=== PATIENT | male | born 1960 | race Caucasian/White ===

== ENCOUNTER → 2024-08-17 | Outpatient (CLI) | payer MEDICARE, SELFPAY ==
[2024-08-17 14:30] LABS: Prothrombin Time (Protime)PT. 13.6 SECONDS (11.7-14.9)
[2024-08-17 14:31] LABS: Partial Thromboplast Time 30.2 Seconds (24.1-36.2)
[2024-08-17 14:41] LABS: ALB/GLOB Ratio 1.7 RATIO (0.9-2.4); AST(SGOT) 34 U/L (<=37); Alanine Aminotransfer ALT/SGPT 28 U/L (<=46); Albumin, Serum 4.1 g/dL (3.4-4.8); Alkaline Phosphatase 60 U/L (40-129); Ammonia 29.2 umol/L (16-60); Anion Gap 11 (5-15); BUN 10 mg/dL (4-19); BUN/Creat Ratio 9.6 RATIO (10-20); Calcium,Total 9.2 mg/dL (7.6-11.0); Carbon Dioxide 25.5 mmol/L (21.0-32.0); Chloride 105 mmol/L (98-108); Creatinine, Serum 1.01 mg/dL (0.70-1.20); EST Glomerular Filtration Rate 84 (>60); Globulin 2.4 g/dL (2.2-4.2); Glucose 87 mg/dL (70-99); LDH 155 U/L (87-241); Potassium 4.4 mmol/L (3.3-5.1); Protein, Total 6.4 g/dL (5.9-8.4); Sodium Level 142 mmol/L (133-145); Total Bilirubin 0.56 mg/dL (0.00-1.30)
[2024-08-17 20:46] LABS: Hemoglobin A1c 5.8 % (<=5.6)
[2024-08-19 15:08] LABS: Anti-Centromere B Ab <0.2 AI (0.0-0.9); Anti-Chromatin <0.2 AI (0.0-0.9); Anti-Jo <0.2 AI (0.0-0.9); Anti-Mitochondrial AB 70.4 Units (0.0-20.0); Anti-Scleroderma-70 AB <0.2 AI (0.0-0.9); Anti-dsDNA Ab 1 IU/mL (0-9); RNP Ab <0.2 AI (0.0-0.9); SJOGREN'S Anti-SS-A test < 0.2 AI (0.0-0.9); SJOGREN'S Anti-SS-B test < 0.2 AI (0.0-0.9); Smith Ab <0.2 AI (0.0-0.9)
== END | disposition home or self-care (01) ==
LOC: LAB 12:35
PROVIDERS: PCP Registered Nurse; Referring Provider Internal Medicine Gastroenterology; Visit Provider Internal Medicine Gastroenterology
DX: K74.60 Unspecified cirrhosis of liver (principal)
CPT/HCPCS: 80053; 80074; 82105; 82140; 82164; 82390; 82525; 82784; 82785; 82787; 83010; 83036; 83516; 83615; 84165; 85610; 85730; 86037; 86225; 86235; 86255; 86334

== ENCOUNTER → 2024-11-01 | Outpatient (CLI) | payer MEDICARE, SELFPAY ==
[2024-11-01 15:39] LABS: Absolute Lymphocyte Count 1.18 X10^3/uL (0.83-4.51); Absolute Neutrophil Count 2.5 X10^3/uL (2.0-7.7); Basophil# 0.04 X10^3/uL; Basophil% 0.9 % (0-1); Eosinophil# 0.14 X10^3/uL; Eosinophils% 3.3 % (0-5); Hematocrit 41.4 % (40-54); Hemoglobin 14.4 g/dL (13.0-16.5); Lymphocyte # 1.18 X10^3/ul (0.83-4.51); Lymphocyte % 27.7 % (19-41); Mean Corp Hgb Conc 34.8 g/dL (32-36); Mean Corpuscular Hgb 31.3 pg (27.0-32.0); Mean Platelet Vol. 11.2 fl (6.2-12.0); Monocyte# 0.37 X10^3/uL; Monocyte% 8.7 % (0-10); NRBC Flagged by Analyzer 0 % (0-5); Neutrophil # 2.51 X10^3/uL (2.7-7.7); Neutrophil % 58.9 % (47-70); POSITIVE COUNT YES; Platelet Count 99 K/mm3 (150-450); RBC Distribution Width CV 12.5 % (11.6-14.6); White Blood Count 4.3 K/mm3 (4.4-11.0)
[2024-11-01 15:50] LABS: Prothrombin Time (Protime)PT. 13.2 SECONDS (11.7-14.9)
[2024-11-01 19:36] LABS: Differential Indicated SCAN CRITERIA MET
[2024-11-01 19:49] LABS: Differential Comment SCANNED; Platelet Estimate MOD DEC (ADEQ)
== END | disposition home or self-care (01) ==
LOC: LAB 15:01
PROVIDERS: PCP Registered Nurse; Referring Provider Internal Medicine; Visit Provider Internal Medicine
DX: K74.60 Unspecified cirrhosis of liver (principal); D69.6 Thrombocytopenia, unspecified
CPT/HCPCS: 36415; 85025; 85610

== ENCOUNTER 2024-11-10 07:41 | Outpatient (CLI) | payer MEDICARE, SELFPAY ==
[2024-11-10] VITALS (12 sets, daily range): BP systolic 91–127; BP diastolic 55–87; PULSE 59–73; RESP 10–23; TEMP 36.7; O2SAT 94–99; BMI 30.6
[2024-11-10] MEDS: fentaNYL 100 MCG/2 ML Ampul IV (08:38)
[2024-11-10] MEDS: 0.9% Saline Lock 10 ML Syringe IV (08:39)
[2024-11-10] MEDS: Lidocaine 2% (20 ml mdv) 20 ML Vial INFILT (08:50)
[2024-11-10 09:10] LABS: Bedside Glucose 104 mg/dL (74-106)
[2024-11-10 09:45] LABS: Pathology Sent to OSU SEE PATHOLOGY REPORT
== END 2024-11-10 23:59 | disposition home or self-care (01) ==
PROVIDERS: PCP Registered Nurse; Referring Provider Internal Medicine Gastroenterology; Visit Provider Internal Medicine Gastroenterology
DX: K74.60 Unspecified cirrhosis of liver (principal); K76.0 Fatty (change of) liver, not elsewhere classified
CPT/HCPCS: 47000; 77012; 82962; 99156; A4216

== ENCOUNTER 2025-01-26 05:53 | Day surgery (SDC) | payer MEDICARE, SELFPAY ==
--- NOTE | 2025-01-25 08:59 | PAT.ANE_ITS ---
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 When Was Last Pacemaker Check QUESTION #4 FULL TEXT: You/Your Family Experience fever (hyperthermia) with Anesthesia Last Oral Intake Last Oral intake: Last Oral Intake NPO since Meds taken in AM with sips of water? Meds patient instructed to take am of surgery PONV PONV - patient care technician instructor: PONV - patient care technician instructor Female No 01/25/25 08:23 HX of Motion Sickness No 01/25/25 08:23 HX of N/V After Surgery No 01/25/25 08:23 Non-Smoker No 01/25/25 08:23 Duration of Surgery greater No 01/25/25 08:23 than 60 minutes Number of Risk Factors PONV Score Height & Weight Height & Weight: Anesthesia: Height & Weight Height 6 ft 1 in 01/18/25 11:01 Respiratory Assessment Respiratory Assessment - patient care technician instructor: Respiratory Tract Infection Hx - patient care technician instructor Hx Respiratory Tract Infection No 01/25/25 08:23 STOP Sleep Apnea STOP Sleep Apnea - patient care technician instructor: STOP Sleep Apnea - patient care technician instructor Hx Hypertension No 01/25/25 08:23 Hx Sleep Apnea Yes: HAD SURGERY YRS AGO 01/25/25 08:23 CPAP No 01/25/25 08:23 BIPAP No 01/25/25 08:23 Do you snore loudly (louder than talking or can be heard Do you often feel tired/ fatigued/ sleepy during daytime? Has anyone observed you stop breathing during sleep? STOP Results Positive 01/25/25 08:23 QUESTION #5 FULL TEXT : Do you snore loudly (louder than talking or can be heard through closed doors)? Tobacco Use History Tobacco Use History - patient care technician instructor: Tobacco Use History - patient care technician instructor Tobacco Use Smoking Status Current every day smoker 01/25/25 08:23 Hx Tobacco Use Yes 01/25/25 08:23 Years Smoking Packs Smoked per Day Smoking Cessation Date was within the last 15 years Hx Smoking Cessation Date Hx Smoking Cessation Counseling Hematologic Medial History Hematologic Hx - patient care technician instructor: Hematologic Medical Hx - spike machine feeder Hx of Blood Transfusion No 01/25/25 08:23 Hx of Transfusion in last 3 No 01/25/25 08:23 Months Date of Last Transfusion (if within last 3 months) Ever experience any problems No 01/25/25 08:23 with transfusion(s)? Specify any problems Hx of Preganancy in last 3 N/A 01/25/25 08:23 Months Nurse Filling Out Transfusion [id number] 01/25/25 08:23 & Questions: Date: 01/25/25 01/25/25 08:23 Time: 08:01/25/25 08:23 Patient unable to answer at this time (ie. confused, unrespo /Reproduction History /Reproductive History - patient care technician instructor: /Reproductive Hx- patient care technician instructor Hx Now Gestational Age (in weeks): EDC: Hx Hx Para Hx Section [facility] Medical History (Updated 01/25/25 @ 08:32 by Neville Rodriguez) Deviated septum Colonoscopy planned Wears dentures Diabetes Fatty liver Ischemic optic neuropathy Gastric reflux Smoker History of stress test Home Medications ?Medication ?Instructions ?Recorded ?Last Taken ?Type gabapentin 100 mg capsule 100 mg PO BID 08/04/24 Unkno wn History glimepiride 1 mg tablet 1 mg PO QDAY 08/04/24 Unknow n History metformin 500 mg tablet 500 mg PO BID 08/04/24 Unkno wn History pantoprazole 20 mg tablet,delayed 20 mg PO QDAY Unknown History release pramipexole 0.5 mg tablet 0.5 mg PO QDAY 08/04/24 Unkn own History citalopram 10 mg/5 mL oral solution 5 mg PO QDAY 08/17 Unknown History ursodiol 500 mg tablet 500 mg PO BID 3 months #180 tabs 11/01/24 Unknown Rx resmetirom 100 mg tablet 100 mg PO QDAY #30 tabs 12/23 06/18 Unknown Rx (Rezdiffra) Allergy/AdvReac Type Severity Reaction Status Date / Time amoxicillin (From Augmentin) Allergy Hives Verified 01/25/25 08:21 clavulanic acid (From Allergy Hives Verified 01/25/25 08:21 Augmentin) midazolam (From Versed) Allergy Other Verified 01/25/25 08:21 Surgical History (Updated 01/25/25 @ 08:32 by Neville Rodriguez) H/O thumb surgery History of tonsillectomy H/O knee surgery H/O colectomy H/O neck surgery Previous back surgery Social History Smoking Status: Current every day smoker tobacco type: e-cigarettes alcohol intake: never Recommendation Anesthesia Recommendation Anesthesia recommendation: OPTIMIZED for anesthesia Follow up Details CBC Recommendation: Yes CBC Rec Details: Recheck CBC on DOS
[2025-01-26] VITALS (8 sets, daily range): BP systolic 100–110; BP diastolic 72–84; PULSE 69–83; RESP 14–16; TEMP 36.2–36.6; O2SAT 95–96; BMI 29.9
--- OUTSIDE RECORDS SUMMARY | 2025-01-26 06:08 | XMS RPT_ITS | CCD ---
Author Organization [facility] Care Team Providers Care Assistant Sales Center Manager Name Role Phone WASHINGTON REARDON MD Primary Care Physician Washington Reardon MD Primary Care Provider LAVONNE KEENE, MISTY Ayala Primary Care Physi jamari MISTY BANERJEE CNP Primary Care Unavailab kranthi LEYVA MD~[phone], GORDON COLLAZO Attending Unavailable GORDON JARVIS~[phone], GORDON COLLAZO Admitting Unavailable SVEN JARVIS, DR CLIFF VARGAS Attending Priscila BANERJEE APRN-JOSE ANGEL, MISTY Ayala Primary Care Un available MICHAEL YOON PA-C Attending Unavailable LAVONNE KEENE, MISTY Ayala Primary Care Un available RODY JARVIS, DR CLARA Booker Attending Priscila KEENE, MISTY A Primary Care Un available RODY JARVIS, DR CLARA Booker Attending Priscila KEENE, MISTY A Primary Care Un available JALEEL MCKENZIE MD Consulting Unavailable ETHEL GARCIA DOITAR Consulting Unavailcarly LLOYD MD, DR CLARA Booker Attending Priscila KEENE, MISTY A Primary Care Un available CELIO PINZON MD Consulting Unavailable RADHA KNIGHT, LUISA Consulting Unavailcarly e KARRIE MASSEY, MICHAEL Attending Unavailable LAVONNE DE LA CRUZ-JOSE ANGEL, MISTY A Primary Care Un available MICHAEL YOON PA-C Attending Unavailable LAVONNE DE LA CRUZ-JOSE ANGEL, MISTY A Primary Care Un available LAVONNE DE LA CRUZ-JOSE ANGEL, MSITY Ayala Attending Un available LAVONNE PENCIL INSPECTOR-PREPARED FOODS TEAM LEADER, MISTY A Primary Care Un available SVEN JARVIS, DR CLIFF VARGAS Attending Unabriana lable LAVONNE PENCIL INSPECTOR-PREPARED FOODS TEAM LEADER, MISTY A Primary Care Un available LAVONNE PENCIL INSPECTOR-PREPARED FOODS TEAM LEADER, MISTY A Attending Un available LAVONNE PENCIL INSPECTOR-PREPARED FOODS TEAM LEADER, MISTY A Primary Care Un available LAVONNE PENCIL INSPECTOR-PREPARED FOODS TEAM LEADER, MISTY A Primary Care Un available ELVIN REYNOSO MD Attending Unavailable KARRIE FRANCIS-C, MICHAEL Attending Unavailable LAVONNE PENCIL INSPECTOR-PREPARED FOODS TEAM LEADER, MISTY A Primary Care Un available Lavonne ASSOCIATE PASTOR-C, Misty Primary Care Provider [phone] Lavonne ASSOCIATE PASTOR-C, Misty Referring Provider [phone] Elisa KNIGHT, Dr. Caldera Attending Provider Elisa KNIGHT, Dr. Caldera Referring Provider Earl JARVIS, Dr. Rincon Attending Provider Earl JARVIS, Dr. Rincon Referring Provider Unavailable Primary Care Provider Unavailabl e SERGEY ELLIOTT Referring Unavailable Lavonne ASSOCIATE PASTOR-C, Misty Referring Provider [phone] Elisa KNIGHT, Dr. Caldera Attending Provider Lavonne ASSOCIATE PASTOR-C, Misty Primary Care Provider Dr. Werner Pérez DO Referring Provider Lavonne, Misty Primary Care Provider Unavail able Lavonne, Misty Referring Provider Unavailabl e Werner Pérez Attending Unavailable Lavonne, Misty Referring Unavailable Lavonne, Misty Primary Care Unavailable Lavonne, Misty Primary Care Unavailable Sergey Elliott Attending Unavailable Sergey Elliott Referring Unavailable FriendWerner Referring Unavailable Lavonne, Misty Primary Care Unavailable Werner Pérez Attending Unavailable Sergey Elliott Attending Unavailable Lavonne, Misty Primary Care Unavailable Lavonne, Misty Referring Unavailable Sergey Elliott Attending Unavailable FriendWerner Attending Unavailable Lavonne, Misty Primary Care Unavailable Lavonne, Misty Referring Unavailable Werner Pérez Attending Unavailable FriendWerner Referring Unavailable Misty Banerjee Primary Care Unavailable Misty Banerjee Primary Care Unavailable Friend, Werner Attending Unavailable Misty Banerjee Attending Unavailable Misty Banerjee Primary Care Unavailable Friend, Werner Attending Unavailable Misty Banerjee Referring Unavailable Allergies Allergy Classification Reported Allergen(s) Allergy Type Date of Onset Reaction(s) Facility (8 sources) Amoxicillin / Clavulanate; Translations: [amoxicillin-cl avulanate] Drug Allergy Weal (disorder) [facility] (16 sources) Midazolam; Translations: [midazolam] Drug Allergy 2 Clouded consciousness (finding) [facility] Comment on above: makes patient violen t confusion (1 source) Amoxicillin-Pot Clavulanate Propensity to adverse reactions to drug 1 [facility] (7 sources) Amoxicillin Drug Allergy 5 [facility] (7 sources) Clavulanate Drug Allergy 5 [facility] (1 source) Amoxicillin Drug Allergy 5 [facility] (1 source) Clavulanate Drug Allergy 5 [facility] (1 source) Midazolam Drug Allergy 5 [facility] Medications Current Medications Medication Drug Class(es) Dates Sig (Normalized) Sig (Original) acetaminophen 500 mg oral capsule (16 sources) Start: 08-04-2024 take 1 capsule by mouth every six hours as needed Acetaminophen 500 mg capsule Active 500 mg PO EVERY 6 HOURS as needed August 04, 2024 12:00am Start: 05-09-2022 Tylenol Extra Strength 500 mg oral tablet Dose : 1,000 mg = 2 tab(s), Oral, q6hr, PRN as needed for pain, # 120 tab(s), 0 Refill(s) Start Date: 05/09/22 Status: Ordered Start: 11-28-2021 End: 11-28-2021 acetaminophen (TYLENOL) tabl et 1,000 mg Start: 10-15-2017 Tylenol 325 mg oral tablet Dose : 650 mg = 2 tab(s), Oral, q4h, PRN Pain, scale 1-8, 0 Refill(s) Start Date: 10/15/17 Status: Ordered AZO Urinary Pain Relief Max Strength (2 sources) Start: 12-12-2022 AZO Urinary Pa in Relief Max Strength Oral, TIDPC, 0 Refill(s) Start Date: 12/12/22 Status: Ordered calcium chloride 0.0014 meq/ml / potassium chloride 0.004 meq/ml / sodium chloride 0.103 meq/ml / sodium lactate 0.028 meq/ml injectable solution (2 sources) Start: 11-28-2021 lactated ringe rs infusion citalopram 2 mg/ml oral solution (16 sources) Serotonin Reuptake Inhibitor Start: 08-17-2024 take 5 mg by mouth once daily Citalopram 10 mg/5 mL solution Active 5 mg PO daily August 17, 2024 12:00am Start: 11-04-2023 End: 05-02-2024 take 1 dose by mouth once daily citalopram 10 mg/5 mL oral solution Dose : 5 mg = 2.5 mL, Oral, qDay, please provide syringe., # 225 mL, 1 Refill(s), [facility]: [id number], 185, cm, 11/04/23 15:01:00 EDT, Height, kg, 11/04/23 15:01:00 EDT, Dosing Weight Start Date: 11/04/23 Stop Date: 05/02/24 Status: Ordered Start: 08-25-2022 citalopram 10 mg oral tablet Dose : 10 mg = 1 tab(s), Oral, qAM, # 30 tab(s), 0 Refill(s) Start Date: 08/25/22 Status: Ordered Start: 10-07-2021 citalopram (CE MAIKEL) 10 MG tablet Start: 08-11-2017 citalopram 20 mg oral tablet Dose : 20 mg = 1 tab(s), Oral, qAM, # 30 tab(s), 0 Refill(s) Start Date: 08/11/17 Status: Ordered 1 ml diphenhydrAMINE hydrochloride 50 mg/ml cartridge (1 source) Histamine-1 Receptor Antagonist Start: 11-28-2021 End: 11-28-2021 diphenhydrAMINE (BENADRYL) injection 12.5 mg 2 ml fentaNYL 0.05 mg/ml injection (2 sources) Opioid Agonist Start: 11-28-2021 fentaNYL (SUBL IMAZE) injection 50 mcg Start: 11-28-2021 fentaNYL (SUBL IMAZE) injection 25 mcg gabapentin 100 mg oral capsule (12 sources) Anti-epileptic Agent Start: 08-04-2024 take 1 capsule by mouth twice daily Gabapentin 100 mg capsule Active 100 mg PO TWICE A DAY August 04, 2024 12:00am Start: 02-17-2024 End: 05-17-2024 gabapentin 100 mg oral capsu le Dose : 100 mg = 1 cap(s), Oral, BID, # 180 cap(s), 0 Refill(s), [facility]: [id number], Neuropathy, 185, cm, 11/04/23 15:01:00 EDT, Height, 103.4, kg, 11/04/23 15:01:00 EDT, Dosing Weight Start Date: 02/17/24 Stop Date: 05/17/24 Status: Ordered Start: 11-28-2022 End: 02-26-2023 take 1 capsule by mouth once daily at bedtime gabapentin 100 mg oral capsule Dose : 100 mg = 1 cap(s), Oral, BID, Take 100mg in the AM and 200mg (2 tabets) qHS, # 180 cap(s), 0 Refill(s), [facility]: [id number], Diabetes type 2, controlled, 185.4, cm, 11/28/22 11:00:00 EDT, Height, 104.9, kg, 11/28/22 11:00:00 EDT, Dosing Weight Start Date: 11/28/22 Stop Date: 02/26/23 Status: Ordered Start: 11-28-2021 End: 11-28-2021 gabapentin (NEURONTIN) capsu le 100 mg glimepiride 1 mg oral tablet (11 sources) Sulfonylurea Start: 08-04-2024 take 1 tablet by mouth once daily Glimepiride 1 mg tablet Active 1 mg PO daily August 04, 2024 12:00am Start: 03-30-2023 End: 09-26-2023 glimepiride 1 mg oral tablet Dose : 1 mg = 1 tab(s), Oral, BID, # 180 tab(s), 1 Refill(s), [facility]: [id number], 185.4, cm, 03/30/23 12:53:00 EST, Height, kg, 03/30/23 12:53:00 EST, Dosing Weight Start Date: 03/30/23 Stop Date: 09/26/23 Status: Ordered Start: 11-28-2022 End: 02-26-2023 glimepiride 1 mg oral tablet Dose : 1 mg = 1 tab(s), Oral, BID, # 180 tab(s), 0 Refill(s), [facility]: [id number], 185.4, cm, 11/28/22 11:00:00 EDT, Height Start Date: 11/28/22 Stop Date: 02/26/23 Status: Ordered insulin lispro 100 unt/ml injectable solution (1 source) Insulin Analog Start: 11-28-2021 insulin lispro (HUMALOG) injection vial 0-12 Units labetalol (NORMODYNE;TRANDATE) injection 5 mg (1 source) Start: 11-28-2021 labetalol (NORMODYNE;TRANDA TE) injection 5 mg 10 ml lidocaine hydrochloride 10 mg/ml injection (1 source) Antiarrhythmic, Amide Local Anesthetic Start: 11-28-2021 End: 11-28-2021 lidocaine PF 1 % injection 1 mL meloxicam 15 mg oral tablet (1 source) Nonsteroidal Anti-inflammatory Drug Start: 08-18-2020 meloxicam 15 mg oral tablet Dose : 15 mg = 1 tab(s), Oral, qDay, Take with food/milk, # 30 tab(s), 0 Refill(s), Neurapraxia Start Date: 08/18/20 Status: Ordered 1 ml meperidine hydrochloride 25 mg/ml cartridge (1 source) Opioid Agonist Start: 11-28-2021 meperidine (DEMEROL) injection 12.5 mg metFORMIN hydrochloride 500 mg oral tablet (16 sources) Biguanide Start: 08-04-2024 take 1 tablet by mouth twice daily Metformin 500 mg tablet Active 500 mg PO TWICE A DAY August 04, 2024 12:00am Start: 07-22-2023 End: 01-18-2024 metFORMIN 500 mg oral tablet (IR) Dose : 500 mg = 1 tab(s), Oral, BID, # 180 tab(s), 1 Refill(s), [facility]: [id number], 185.4, cm, 03/30/23 12:53:00 EST, Height, kg, 03/30/23 12:53:00 EST, Dosing Weight Start Date: 07/22/23 Stop Date: 01/18/24 Status: Ordered Start: 05-09-2022 metFORMIN 500 mg oral tablet (IR) Dose : 500 mg = 1 tab(s), Oral, BID, # 180 tab(s), 0 Refill(s) Start Date: 05/09/22 Status: Ordered Start: 09-06-2021 take 2 tablets by mo uth once daily metFORMIN (GLUCOPHAGE-XR) 500 MG extended release tablet TAKE TWO TABLETS BY MOUTH ONCE EVERY DAY 0 09/06/2021 Active Start: 08-16-2021 metFORMIN 1000 mg oral tablet (IR) Start Date: 08/16/21 Status: Ordered naproxen sodium 220 mg oral tablet (3 sources) Nonsteroidal Anti-inflammatory Drug Start: 05-09-2022 Aleve 220 mg oral tablet Dose : 440 mg = 2 tab(s), Oral, qDay, PRN as needed for pain, # 40 cap(s), 0 Refill(s) Start Date: 05/09/22 Status: Ordered omeprazole 20 mg delayed release oral capsule (1 source) Proton Pump Inhibitor Start: 08-11-2017 omeprazole 20 mg oral delayed release capsule (NF) Dose : 20 mg = 1 cap(s), Oral, qAM, # 30 cap(s), 0 Refill(s) Start Date: 08/11/17 Status: Ordered 2 ml ondansetron 2 mg/ml injection (1 source) Serotonin-3 Receptor Antagonist Start: 11-28-2021 End: 11-28-2021 ondansetron (ZOFRAN) injection 4 mg pantoprazole 20 mg delayed release oral tablet (15 sources) Proton Pump Inhibitor Start: 08-04-2024 take 1 tablet by mouth once daily Pantoprazole 20 mg tablet,delayed release (DR/EC) Active 20 mg PO daily August 04, 2024 12:00am Start: 11-04-2023 End: 05-02-2024 pantoprazole 20 mg oral ente renato coated tablet Dose : 20 mg = 1 tab(s), Oral, qHS, # 90 tab(s), 1 Refill(s), [facility]: [id number], 185, cm, 11/04/23 15:01:00 EDT, Height, kg, 11/04/23 15:01:00 EDT, Dosing Weight Start Date: 11/04/23 Stop Date: 05/02/24 Status: Ordered Start: 05-09-2022 pantoprazole 2 0 mg oral enteric coated tablet Dose : 20 mg = 1 tab(s), Oral, qHS, # 90 tab(s), 0 Refill(s) Start Date: 05/09/22 Status: Ordered Start: 09-12-2021 take 1 tablet by samantha th once daily pantoprazole (PROTONIX) 20 MG tablet TAKE ONE TABLET BY MOUTH EVERY DAY 0 09/12/2021 Active phenazopyridine hydrochloride 200 mg delayed release oral tablet (1 source) Start: 11-28-2021 End: 12-03-2021 take 1 tablet by mouth three times daily as needed for pain phenazopyridine (PYRIDIUM) 200 MG tablet Take 1 tablet by mouth 3 times daily as needed for Pain (burning with urination) 15 tablet 0 11/28/2021 12/03/2021 Active pramipexole dihydrochloride 0.5 mg oral tablet (16 sources) Nonergot Dopamine Agonist Start: 08-04-2024 take 1 tablet by mouth once daily Pramipexole 0.5 mg tablet Active 0.5 mg PO daily August 04, 2024 12:00am Start: 11-04-2023 End: 05-02-2024 pramipexole 0.5 mg oral tabl et Dose : 0.5 mg = 1 tab(s), Oral, qPM, Take 1 tab in the PM, # 90 tab(s), 1 Refill(s), [facility]: [id number], 185, cm, 11/04/23 15:01:00 EDT, Height, kg, 11/04/23 15:01:00 EDT, Dosing Weight Start Date: 11/04/23 Stop Date: 05/02/24 Status: Ordered Start: 08-25-2022 pramipexole 0. 5 mg oral tablet Dose : 0.5 mg = 1 tab(s), Oral, qPM, Take 1 tab in the PM, # 270 tab(s), 0 Refill(s) Start Date: 08/25/22 Status: Ordered Start: 05-09-2022 pramipexole 0. 125 mg oral tablet Dose : 0.125 mg = 1 tab(s), Oral, qHS, # 270 tab(s), 0 Refill(s) Start Date: 05/09/22 Status: Ordered Start: 08-11-2017 pramipexole (M IRAPEX) 0.125 MG tablet 0.125 mg 0 08/11/2017 Active Resmetirom (Rezdiffra) 100 mg tablet (1 source) Start: 01-02-2025 take 1 tablet by mouth once daily Resmetirom (Rezdiffra) 100 mg tablet Active 100 mg PO daily 23 04January 02, 2025 12:00am simvastatin 20 mg oral tablet (5 sources) HMG-CoA Reductase Inhibitor Start: 08-11-2017 simvastatin 20 mg oral tablet (NF) Dose : 20 mg = 1 tab(s), Oral, qHS, # 30 tab(s), 0 Refill(s) Start Date: 08/11/17 Status: Ordered 5 ml sodium chloride 9 mg/ml injection (9 sources) Start: 11-28-2021 sodium chlorid e flush 0.9 % injection 5-40 mL Start: 11-28-2021 sodium chlorid e flush 0.9 % injection 5-40 mL Start: 11-28-2021 sodium chlorid e flush 0.9 % injection 5-40 mL Start: 11-28-2021 0.9 % sodium c hloride bolus Start: 11-28-2021 0.9 % sodium c hloride infusion Start: 11-28-2021 sodium chlorid e flush 0.9 % injection 5-40 mL ursodiol 500 mg oral tablet (10 sources) Bile Acid Start: 11-01-2024 take 1 tablet by mouth twice daily Ursodiol 500 mg tablet Active 500 mg PO TWICE A DAY 180 90 November 01, 2024 2:45pm Start: 10-19-2024 End: 11-01-2024 take 1 tablet by mouth twice daily Ursodiol 250 mg tablet Discontinued 250 mg PO TWICE A DAY 180 90 October 19, 2024 12:00am November 01, 2024 2:55pm Completed/Discontinued Medications Medication Drug Class(es) Dates Sig (Normalized) Sig (Original) bromelein (3 sources) Start: 05-09-2022 bromelein bromerain, 1 tab(s), Oral, qDay, 0 Refill(s), 117 Start Date: 05/09/22 Status: Ordered famotidine 20 mg oral tablet (1 source) Histamine-2 Receptor Antagonist Start: 11-28-2021 End: 11-28-2021 famotidine (PEPCID) tablet 20 mg predniSONE 50 mg oral tablet (1 source) Start: 08-19-2020 End: 08-24-2020 predniSONE 50 mg oral tablet Dose : 50 mg = 1 tab(s), Oral, qDayM, # 5 tab(s), 0 Refill(s), Neurapraxia Start Date: 08/19/20 Stop Date: 08/24/20 Status: Ordered Tirzepatide 2.5 mg/0.5 mL pen injector (7 sources) Start: 08-04-2024 End: 08-17-2024 Tirzepatide 2.5 mg/0.5 mL pen injector Discontinued 2.5 mg SC EVERY WEEK August 04, 2024 12:00am August 17, 2024 11:22am for 4 weeks Problems Problem Classification Problem Date Documented Da te Episodic/Chronic Abdominal pain (2 sources) Pain in male pelvis; Translations: [Pelvic and perineal pain] Onset: 2 Episodic Anxiety disorders (15 sources) Anxiety; Translations: [Anxiety disorder, unspecified] 08-11-2017 Chronic Chronic obstructive pulmonary disease and bronchiectasis (8 sources) Smokers' cough 08-11-2017 Chronic Coagulation and hemorrhagic disorders (18 sources) Thrombocytopenic disorder; Translations: [Thrombocytopenia, unspecified] Onset: 4 11-28-2022 Chronic Conditions associated with dizziness or vertigo (8 sources) Vertigo 08-11-2017 Episodic Comment on above: PT TO HAVE CAROTID S TUDIES & ECHO 08/21/17 Diabetes mellitus with complications (6 sources) Neuropathy due to diabetes mellitus; Translations: [Type 2 diabetes mellitus with diabetic neuropathy, unspecified] Onset: 4 09-30-2022 Chronic Diabetes mellitus without complication (11 sources) Type 2 diabetes mellitus; Translations: [Type 2 diabetes mellitus without complications] 08-25-2022 Chronic Disorders of lipid metabolism (11 sources) Hyperlipidemia; Translations: [Hyperlipidemia, unspecified] 08-25-2022 Chronic Esophageal disorders (20 sources) Gastroesophageal reflux disease; Translations: [Gastro-esophageal reflux disease without esophagitis] 10-09-2017 Chronic Essential hypertension (13 sources) Hypertensive disorder; Translations: [Essential (primary) hypertension] Onset: 4 10-11-2022 Chronic Genitourinary symptoms and ill-defined conditions (17 sources) Urgent desire to urinate; Translations: [Urgency of urination] Onset: Episodic Headache; including migraine (8 sources) Headache 08-11-2017 Episodic Comment on above: SINUS Hepatitis (19 sources) Steatohepatitis; Translations: [Nonalcoholic steatohepatitis] Onset: 5 03-04-2024 Chronic Mood disorders (11 sources) Depressive disorder; Translations: [Depression] 08-25-2022 Chronic Osteoarthritis (15 sources) Arthritis; Translations: [Unspecified osteoarthritis, unspecified site] 08-11-2017 Chronic Other and unspecified benign neoplasm (15 sources) Polyp of colon; Translations: [Polyp of colon] 08-11-2017 Episodic Other connective tissue disease (4 sources) Foot pain 09-30-2022 Episodic Other connective tissue disease (4 sources) Pain of toes of bilateral feet 11-13-2022 Episodic Other diseases of bladder and urethra (4 sources) Spasm of bladder 10-13-2022 Chronic Other gastrointestinal disorders (14 sources) Splenomegaly; Translations: [Splenomegaly, not elsewhere classified] 08-25-2022 Episodic Other gastrointestinal disorders (1 source) Splenomegaly, not elsewhere classified; Translations: [Splenomegaly, not elsewhere classified] Onset: Episodic Other hereditary and degenerative nervous system conditions (10 sources) Restless legs 08-11-2017 Chronic Other liver diseases (16 sources) Cirrhosis of liver; Translations: [Unspecified cirrhosis of liver] 08-17-2024 Chronic Other liver diseases (1 source) Portal hypertension; Translations: [Portal hypertension (HCC)] Onset: 5 Chronic Other liver diseases (1 source) Unspecified cirrhosis of liver; Translations: [Unspecified cirrhosis of liver] Onset: 5 Chronic Other liver diseases (4 sources) Large liver 08-25-2022 Episodic Other nervous system disorders (8 sources) Numbness and tingling sensation of skin 08-11-2017 Episodic Comment on above: R LEG / AFTER PROLON GED STANDING Other nutritional; endocrine; and metabolic disorders (4 sources) Body mass index 30+ - obesity 08-25-2022 Chronic Other screening for suspected conditions (not mental disorders or infectious disease) (10 sources) Platelet count below reference range; Translations: [Encounter for screening for malignant neoplasm of prostate] Onset: 3 05-09-2022 Episodic Comment on above: PLT 84,000 2 Other skin disorders (4 sources) Bilateral ingrowing nail of toe of feet 11-13-2022 Episodic Other upper respiratory disease (4 sources) Seasonal allergy 08-25-2022 Chronic Residual codes; unclassified (8 sources) Sleep apnea 08-11-2017 Chronic Residual codes; unclassified (4 sources) Family history of colorectal cancer 12-12-2022 Episodic Residual codes; unclassified (4 sources) Preoperative state 12-12-2022 Episodic Residual codes; unclassified (1 source) Other specified postprocedural states; Translations: [OTH SPECIFIED POSTPROCEDURAL STATES] Onset: 4 Episodic Spondylosis; intervertebral disc disorders; other back problems (9 sources) Prolapsed lumbar intervertebral disc; Translations: [Other spondylosis with radiculopathy, cervical region] Onset: 4 08-11-2017 Chronic Spondylosis; intervertebral disc disorders; other back problems (3 sources) Radiculopathy, cervical region; Translations: [Cervicalgia] Onset: 4 Episodic Substance-related disorders (1 source) Smoker 08-11-2017 Chronic Unclassified (8 sources) Finding related to cerebral function Onset: 1 08-11-2017 Comment on above: STATES EYE ST ROKE FROM [facility] / WAS ON DIOVAN FOR 2-3 YEARS /IT WAS D/C'D D/T HYPOTENSION Unclassified (8 sources) Eye glasses, device (physical object) 10-09-2017 Comment on above: reading Unclassified (4 sources) Vaping 08-25-2022 Results Test Name Value Interpretation Reference Range Facility Gastroenterology Visit Repor [facility] 01-18-2025 Gastroenterology Visit Report [facility]enter[facility] [address] [place] [address] OFFICE VISIT Date of Service: 01/18/25 MR#: [id number] Acct: [id number] Name: NATTY ZAIDI Rep #: [id number] : 1960 Provider: Werner Pérez DO Age/Sex: 64/M Location: [facility] Status: Signed Intake Vital Signs 12/30/24 08:59 01/18/25 11:01 Height 6 ft 1 in 6 ft 1 in Weight: 228 lb BMI 30.0 Intake Visit Reasons: 3 M FU Allergies amoxicillin (From Augmentin) Allergy (Verified 12/30/24 08:59) Hives clavulanic acid (From Augmentin) Allergy (Verified 12/30/24 08:59) Hives midazolam (From Versed) Allergy (Verified 12/30/24 08:59) Other Medications ???Medication ???Instructions ???Recorded ???Confirmed ???Type acetaminophen 500 mg capsule 500 mg PO Q6H PRN 08/04/24 5 History gabapentin 100 mg capsule 100 mg PO BID 08/04/24 01/18/25 Hi story glimepiride 1 mg tablet 1 mg PO QDAY 08/04/24 01/18/25 His tory metformin 500 mg tablet 500 mg PO BID 08/04/24 01/18/25 Hi story pantoprazole 20 mg tablet,delayed 20 mg PO QDAY 08/04/24 01/18/25 H istory release pramipexole 0.5 mg tablet 0.5 mg PO QDAY 08/04/24 01/18/25 H istory citalopram 10 mg/5 mL oral solution 5 mg PO QDAY 08/17/24 01/18/25 History ursodiol 500 mg tablet 500 mg PO BID 3 months #180 tabs 0 11/01/24 01/18/25 Rx resmetirom 100 mg tablet 100 mg PO QDAY #30 tabs 01/02/25 0 01/18/25 Rx (Leta) PFSH Social History Smoking Status: Current every day smoker alcohol intake: never HPI HPI Details: NATTY ZAIDI, is a 64 M who presents to the office today for follow up. *BGI established 3 pt reports that is apr 2022 he saw his pcp who did a physical exam and told pt he felt his liver was enflamed. Shortly after he was diagnosed with DMII. Pt reports he has had scopes and imaging that show enlarged liver and spleen. He reports that he was previously seeing the ASSOCIATE PASTOR that works with Dr Lloyd and was told he needs to be on a list for a liver transplant. Pt is looking for some clarification and more information on his diagnoses. Pt reports that pantoprazole is helpful for his heartburn. Pt reports that he is seeing cooperative manager, Dr Reynoso, for his low platelet count. OV 5..25 pt reports that he is feeling well overall and denies GI symptoms of concern at this time. Pt reports occasional itchy skin and notes some dizziness related to his medications. Pt denies trouble sleeping, swelling, confusion / brain fog, and diarrhea or constipation. Pt is here to review lab work. Liver Bx 6.19.25- Mild macrovesicular steatosis 10%, Trichome stain highlights bridging fibrosis stage 3, Iron stain negative Liver Doppler 7.8.25-Patent hepatic vasculature with appropriately directed flow, liver steatosis OV 8.8.25- Pt well since last visit. Here to review test results. Denies any GI concerns as well as itching, dizziness, confusion or swelling. Sometimes he feels like burping or heartburn symptoms. Liver biopsy and liver Doppler reviewed OV 8.27.25 pt reports that he is feeling well overall, denies GI symptoms of concern at this time. Reports increased flatulence since starting ursodiol. ROS Const Constitutional: No fatigue, fever(s) or weight change ENT ENT: No difficulty swallowing Gastro GI: No abdominal pain, belching, bloating, change in bowel habits, change in stool character, coffee ground emesis, constipation, cramping, diarrhea, heartburn, difficulty swallowing, feeling full ear ly, excessive flatus, incontinent of stools, Vomiting blood/hematemesis, Blood in stool, loose stools, Black,tarry stools, nausea/dyspepsia, pain with swallowing, vomiting or other Musc Musculoskeletal: Positive for Arthritis and restless legs; No joint pain Skin Skin: No yellowing of the eye or itchy eyes Neuro Neurology: Positive for restless legs Psych Psychiatric: No anxiety and No depression Endo Endocrine: No fatigue or weight change Aller/Imm Allergy/Immunologic: No itchy eyes Bro/Lymp Hematologic/Lymphatic: No easy bleeding or easy bruising Exam Const General: cooperative, no acute distress and well developed Nutritional Appearance: average body habitus Orientation: alert, awake and oriented x3 Other: BMI 30.3 kg/m???, weight 230 pound, lost 4 pounds since October 2024 [facility] Head: normocephalic and atraumatic Nose: external nose normal Face and sinus: normal facial exam Mouth: moist mucous membranes Eyes Pupils: PERRL EOM: EOM intact bilaterally Neck Neck: normal visual inspection, no meningeal signs and trachea midline Carotids: no bruits Chest Chest palpation inspection: normal inspection of the chest Resp Effort Inspection: normal respiratory effort and symmetric chest (more content not included)... Normal [facility] Gastroenterology Visit Repor ton 12-30-2024 Gastroenterology Visit Report [facility] Gastroenterology [address] [place] [address] OFFICE VISIT Date of Service: 12/30/24 MR#: [id number] Acct: [id number] Name: NATTY ZAIDI Rep #: [id number] : 1960 Provider: Dr. Sergey sibley MD Age/Sex: 64/M Location: [facility] Status: Signed Intake Vital Signs 11/01/24 14:02 11/10/24 08:02 12/30/24 08:59 Height 6 ft 1 in 6 ft 1 in 6 ft 1 in Weight: 230 lb BMI 30.3 BP 118/82 H Blood Pressure Location Lt brachial Position Sitting Pulse 74 Pulse Oximetry (%) 94 Oxygen Delivery Method room air Intake Visit Reasons: 2 M FU Allergies amoxicillin (From Augmentin) Allergy (Verified 12/30/24 08:59) Hives clavulanic acid (From Augmentin) Allergy (Verified 12/30/24 08:59) Hives midazolam (From Versed) Allergy (Verified 12/30/24 08:59) Other Medications ???Medication ???Instructions ???Recorded ???Confirmed ???Type acetaminophen 500 mg capsule 500 mg PO Q6H PRN 08/04/24 5 History gabapentin 100 mg capsule 100 mg PO BID 08/04/24 12/30/24 Hi story glimepiride 1 mg tablet 1 mg PO QDAY 08/04/24 12/30/24 His tory metformin 500 mg tablet 500 mg PO BID 08/04/24 12/30/24 Hi story pantoprazole 20 mg tablet,delayed 20 mg PO QDAY 08/04/24 12/30/24 H istory release pramipexole 0.5 mg tablet 0.5 mg PO QDAY 08/04/24 12/30/24 H istory citalopram 10 mg/5 mL oral solution 5 mg PO QDAY 08/17/24 12/30/24 History ursodiol 500 mg tablet 500 mg PO BID 3 months #180 tabs 0 11/01/24 12/30/24 Rx PFSH Social History Smoking Status: Current every day smoker alcohol intake: never HPI HPI Details: NATTY ZAIDI, is a 64 M who presents to the office today for follow up. *BGI established 08.17. pt reports that is apr 2022 he saw his pcp who did a physical exam and told pt he felt his liver was enflamed. Shortly after he was diagnosed with DMII. Pt reports he has had scopes and imaging that show enlarged liver and spleen. He reports that he was previously seeing the [employer] that works with Dr Lloyd and was told he needs to be on a list for a liver transplant. Pt is looking for some clarification and more information on his diagnoses. Pt reports that pantoprazole is helpful for his heartburn. Pt reports that he is seeing cooperative manager, Dr Reynoso, for his low platelet count. OV 5..25 pt reports that he is feeling well overall and denies GI symptoms of concern at this time. Pt reports occasional itchy skin and notes some dizziness related to his medications. Pt denies trouble sleeping, swelling, confusion / brain fog, and diarrhea or constipation. Pt is here to review lab work. Liver Bx 6.19.25- Mild macrovesicular steatosis 10%, Trichome stain highlights bridging fibrosis stage 3, Iron stain negative Liver Doppler 7.8.25-Patent hepatic vasculature with appropriately directed flow, liver steatosis OV 8.8.25- Pt well since last visit. Here to review test results. Denies any GI concerns as well as itching, dizziness, confusion or swelling. Sometimes he feels like burping or heartburn symptoms. Liver biopsy and liver Doppler reviewed ROS Const Constitutional: No fatigue, fever(s) or weight change ENT ENT: No difficulty swallowing Resp Respiratory: No shortness of breath or wheezing Cardio Cardiology: No chest pain at rest or dyspnea on exertion Gastro GI: No abdominal pain, belching, bloating, change in bowel habits, change in stool character, coffee ground emesis, constipation, cramping, diarrhea, heartburn, difficulty swallowing, feeling full early, excessive flatus, incontinent of stools, Vomiting blood/hematemesis, Blood in stool, loose stools, Black,tarry stools, nausea/dyspepsia, pain with swallowing, vomiting or other Genitourinary Male: No difficulty urinating or burning urination Musc Musculoskeletal: Positive for Arthritis, sciatica and restless legs; No joint pain Skin Skin: No yellowing of the eye or itchy eyes Neuro Neurology: Positive for restless legs Psych Psychiatric: No anxiety and No depression Endo Endocrine: No fatigue or weight change Aller/Imm Allergy/Immunologic: No itchy eyes or wheezing Bro/Lymp Hematologic/Lymphatic: No easy bleeding or easy bruising Exam Const General: cooperative, no acute distress and well developed Nutritional Appearance: average body habitus Orientation: alert, awake and oriented x3 Other: BMI 30.3 kg/m???, weight 230 pound, lost 4 pounds since October 2024 [facility] Head: normocephalic and atraumatic Nose: external nose normal Face and sinus: normal facial exam Mouth: moist mucous membranes Eyes Pupils: PERRL EOM: EOM intact bilaterally Neck Neck: normal visual inspection, no meningeal signs and trachea midline Carotids: no b (more content not included)... Normal [facility] No Panel Informationon 11-29 IMPRESSION: Patent hepatic vasculature with appropriately directed flow. Diffuse increased echogenicity compatible with steatosis or other chronic diffuse hepatocellular process. Splenomegaly, without focal abnormality Embroidery Finisher: CLAUDIA Transcribe Date/Time: Nov 29 2024 8:57A Dictated by : EMIL HENRY MD This examination was interpreted and the report reviewed and electronically signed by: EMIL HENRY MD on Nov 29 2024 9:02AM [facility] Radiology Study observation (narrative) Isabel Tabor Panel InformationOrdered By: [facility] Provider on 11-29-2024 [facility] US ABD LIVER VASCULARon 07-0 US ABD LIVER VASCULAR * * *Final Report* * * DATE OF EXAM: Nov 29 2024 8:47AM RHU 1233 - US ABD LIVER VASCULAR / PROCEDURE REASON: SPLENOMEGALY, PH * * * * Physician Interpretation * * * * EXAMINATION: LIVER VASCULAR ULTRASOUND WITH DOPPLER IMAGING CLINICAL HISTORY: Splenomegaly. PH. TECHNIQUE: Sonography of the liver with color and spectral Doppler imaging of the hepatic vasculature was performed. Images were obtained and stored in a permanent archive. MQ: USLV_1 COMPARISON: None. RESULT: Sonographic Findings: Pancreas: Normal sonographic appearance. Portions obscured: tail Liver: 16.3 cm in length Echotexture: Normal, homogeneous. Echogenicity: Increased Surface contour: Smooth Lesions: None. Biliary: No intrahepatic biliary duct dilation. CBD: 0.2 cm at the hilum. Gallbladder: Normal caliber -Contents: No cholelithiasis -Wall: Normal -Other: No pericholecystic fluid. Right Kidney: No hydronephrosis. Spleen: Craniocaudal length 17.7 cm, enlarged. There are no splenic lesions. Other: No ascites HEPATIC VASCULATURE: PORTAL SYSTEM: -Splenic Vein: Patent with antegrade flow (towards the liver). -Main PV: Patent with normal, phasic antegrade flow (towards liver). 20 cm/sec -Right anterior PV: Patent with phasic antegrade flow (towards liver). -Right posterior PV: Patent with phasic antegrade flow (towards liver). -Left PV: Patent with phasic antegrade flow (towards liver). Splenorenal shunt: None Recanalized paraumbilical vein: None HEPATIC ARTERIES: - Main MURRAY: Normal waveform PSV: 38 cm/sec. RI: 0.7 - Right anterior MURRAY: Normal waveform - Right posterior MURRAY: Normal waveform - Left MURRAY: Normal waveform HEPATIC VEINS: -Left: Patent with triphasic waveform. -Middle: Patent with triphasic waveform. -Right: Patent with triphasic waveform. IVC: Patent with normal, phasic wave form. IMPRESSION: Patent hepatic vasculature with appropriately directed flow. Diffuse increased echogenicity compatible with steatosis or other chronic diffuse hepatocellular process. Splenomegaly, without focal abnormality Embroidery Finisher: CLAUDIA Transcribe Date/Time: Nov 29 2024 8:57A Dictated by : EMIL HENRY MD This examination was interpreted and the report reviewed and electronically signed by: EMIL HENRY MD on Nov 29 2024 9:02AM EST [id number] Normal [facility] US ABDOMEN LTD -NBon 08-2 025 * * *Final Report* * * DATE OF EXAM: Nov 29 2024 8:47AM RHU 1238 - US ABDOMEN LTD -NB / PROCEDURE REASON: SPLENOMEGALY, PH * * * * Physician Interpretation * * * * EXAMINATION: LIVER VASCULAR ULTRASOUND WITH DOPPLER IMAGING CLINICAL HISTORY: Splenomegaly. PH. TECHNIQUE: Sonography of the liver with color and spectral Doppler imaging of the hepatic vasculature was performed. Images were obtained and stored in a permanent archive. MQ: USLV_1 COMPARISON: None. RESULT: Sonographic Findings: Pancreas: Normal sonographic appearance. Portions obscured: tail Liver: 16.3 cm in length Echotexture: Normal, homogeneous. Echogenicity: Increased Surface contour: Smooth Lesions: None. Biliary: No intrahepatic biliary duct dilation. CBD: 0.2 cm at the hilum. Gallbladder: Normal caliber -Contents: No cholelithiasis -Wall: Normal -Other: No pericholecystic fluid. Right Kidney: No hydronephrosis. Spleen: Craniocaudal length 17.7 cm, enlarged. There are no splenic lesions. Other: No ascites HEPATIC VASCULATURE: PORTAL SYSTEM: -Splenic Vein: Patent with antegrade flow (towards the liver). -Main PV: Patent with normal, phasic antegrade flow (towards liver). 20 cm/sec -Right anterior PV: Patent with phasic antegrade flow (towards liver). -Right posterior PV: Patent with phasic antegrade flow (towards liver). -Left PV: Patent with phasic antegrade flow (towards liver). Splenorenal shunt: None Recanalized paraumbilical vein: None HEPATIC ARTERIES: - Main MURRAY: Normal waveform PSV: 38 cm/sec. RI: 0.7 - Right anterior MURRAY: Normal waveform - Right posterior MURRAY: Normal waveform - Left MURRAY: Normal waveform HEPATIC VEINS: -Left: Patent with triphasic waveform. -Middle: Patent with triphasic waveform. -Right: Patent with triphasic waveform. IVC: Patent with normal, phasic wave form. [facility] Provider, Doug Coronado - 11/29/2024 * * *Final Report* * * DATE OF EXAM: Nov 29 2024 8:47AM RHU 1238 - US ABDOMEN LTD -NB / PROCEDURE REASON: SPLENOMEGALY, PH * * * * Physician Interpretation * * * * EXAMINATION: LIVER VASCULAR ULTRASOUND WITH DOPPLER IMAGING CLINICAL HISTORY: Splenomegaly. PH. TECHNIQUE: Sonography of the liver with color and spectral Doppler imaging of the hepatic vasculature was performed. Images were obtained and stored in a permanent archive. MQ: USLV_1 COMPARISON: None. RESULT: Sonographic Findings: Pancreas: Normal sonographic appearance. Portions obscured: tail Liver: 16.3 cm in length Echotexture: Normal, homogeneous. Echogenicity: Increased Surface contour: Smooth Lesions: None. Biliary: No intrahepatic biliary duct dilation. CBD: 0.2 cm at the hilum. Gallbladder: Normal caliber -Contents: No cholelithiasis -Wall: Normal -Other: No pericholecystic fluid. Right Kidney: No hydronephrosis. Spleen: Craniocaudal length 17.7 cm, enlarged. There are no splenic lesions. Other: No ascites HEPATIC VASCULATURE: PORTAL SYSTEM: -Splenic Vein: Patent with antegrade flow (towards the liver). -Main PV: Patent with normal, phasic antegrade flow (towards liver). 20 cm/sec -Right anterior PV: Patent with phasic antegrade flow (towards liver). -Right posterior PV: Patent with phasic antegrade flow (towards liver). -Left PV: Patent with phasic antegrade flow (towards liver). Splenorenal shunt: None Recanalized paraumbilical vein: None HEPATIC ARTERIES: - Main MURRAY: Normal waveform PSV: 38 cm/sec. RI: 0.7 - Right anterior MURRAY: Normal waveform - Right posterior MURRAY: Normal waveform - Left MURRAY: Normal waveform HEPATIC VEINS: -Left: Patent with triphasic waveform. -Middle: Patent with triphasic waveform. -Right: Patent with triphasic waveform. IVC: Patent with normal, phasic wave form. IMPRESSION IMPRESSION: Patent hepatic vasculature with appropriately directed flow. Diffuse increased echogenicity compatible with steatosis or other chronic diffuse hepatocellular process. Splenomegaly, without focal abnormality Embroidery Finisher: CLAUDIA Transcribe Date/Time: Nov 29 2024 8:57A Dictated by : EMIL HENRY MD This examination was interpreted and the report reviewed and electronically signed by: EMIL HENRY MD on Nov 29 2024 9:02AM EST [facility] US ABDOMEN LTD -NB * * *Final Report* * * DATE OF EXAM: Nov 29 2024 8:47AM RHU 1238 - US ABDOMEN LTD -NB / PROCEDURE REASON: SPLENOMEGALY, PH * * * * Physician Interpretation * * * * EXAMINATION: LIVER VASCULAR ULTRASOUND WITH DOPPLER IMAGING CLINICAL HISTORY: Splenomegaly. PH. TECHNIQUE: Sonography of the liver with color and spectral Doppler imaging of the hepatic vasculature was performed. Images were obtained and stored in a permanent archive. MQ: USLV_1 COMPARISON: None. RESULT: Sonographic Findings: Pancreas: Normal sonographic appearance. Portions obscured: tail Liver: 16.3 cm in length Echotexture: Normal, homogeneous. Echogenicity: Increased Surface contour: Smooth Lesions: None. Biliary: No intrahepatic biliary duct dilation. CBD: 0.2 cm at the hilum. Gallbladder: Normal caliber -Contents: No cholelithiasis -Wall: Normal -Other: No pericholecystic fluid. Right Kidney: No hydronephrosis. Spleen: Craniocaudal length 17.7 cm, enlarged. There are no splenic lesions. Other: No ascites HEPATIC VASCULATURE: PORTAL SYSTEM: -Splenic Vein: Patent with antegrade flow (towards the liver). -Main PV: Patent with normal, phasic antegrade flow (towards liver). 20 cm/sec -Right anterior PV: Patent with phasic antegrade flow (towards liver). -Right posterior PV: Patent with phasic antegrade flow (towards liver). -Left PV: Patent with phasic antegrade flow (towards liver). Splenorenal shunt: None Recanalized paraumbilical vein: None HEPATIC ARTERIES: - Main MURRAY: Normal waveform PSV: 38 cm/sec. RI: 0.7 - Right anterior MURRAY: Normal waveform - Right posterior MURRAY: Normal waveform - Left MURRAY: Normal waveform HEPATIC VEINS: -Left: Patent with triphasic waveform. -Middle: Patent with triphasic waveform. -Right: Patent with triphasic waveform. IVC: Patent with normal, phasic wave form. IMPRESSION: Patent hepatic vasculature with appropriately directed flow. Diffuse increased echogenicity compatible with steatosis or other chronic diffuse hepatocellular process. Splenomegaly, without focal abnormality Embroidery Finisher: CLAUDIA Transcribe Date/Time: Nov 29 2024 8:57A Dictated by : EMIL HENRY MD This examination was interpreted and the report reviewed and electronically signed by: EMIL HENRY MD on Nov 29 2024 9:02AM EST [id number] Normal [facility] US DOPPLER COMPLETEon 2024 US DOPPLER COMPLETE * * *Final Report* * * DATE OF EXAM: Nov 29 2024 8:47AM RHU 1033 - US DOPPLER COMPLETE / PROCEDURE REASON: SPLENOMEGALY, PH * * * * Physician Interpretation * * * * EXAMINATION: LIVER VASCULAR ULTRASOUND WITH DOPPLER IMAGING CLINICAL HISTORY: Splenomegaly. PH. TECHNIQUE: Sonography of the liver with color and spectral Doppler imaging of the hepatic vasculature was performed. Images were obtained and stored in a permanent archive. MQ: USLV_1 COMPARISON: None. RESULT: Sonographic Findings: Pancreas: Normal sonographic appearance. Portions obscured: tail Liver: 16.3 cm in length Echotexture: Normal, homogeneous. Echogenicity: Increased Surface contour: Smooth Lesions: None. Biliary: No intrahepatic biliary duct dilation. CBD: 0.2 cm at the hilum. Gallbladder: Normal caliber -Contents: No cholelithiasis -Wall: Normal -Other: No pericholecystic fluid. Right Kidney: No hydronephrosis. Spleen: Craniocaudal length 17.7 cm, enlarged. There are no splenic lesions. Other: No ascites HEPATIC VASCULATURE: PORTAL SYSTEM: -Splenic Vein: Patent with antegrade flow (towards the liver). -Main PV: Patent with normal, phasic antegrade flow (towards liver). 20 cm/sec -Right anterior PV: Patent with phasic antegrade flow (towards liver). -Right posterior PV: Patent with phasic antegrade flow (towards liver). -Left PV: Patent with phasic antegrade flow (towards liver). Splenorenal shunt: None Recanalized paraumbilical vein: None HEPATIC ARTERIES: - Main MURRAY: Normal waveform PSV: 38 cm/sec. RI: 0.7 - Right anterior MURRAY: Normal waveform - Right posterior MURRAY: Normal waveform - Left MURRAY: Normal waveform HEPATIC VEINS: -Left: Patent with triphasic waveform. -Middle: Patent with triphasic waveform. -Right: Patent with triphasic waveform. IVC: Patent with normal, phasic wave form. IMPRESSION: Patent hepatic vasculature with appropriately directed flow. Diffuse increased echogenicity compatible with steatosis or other chronic diffuse hepatocellular process. Splenomegaly, without focal abnormality Embroidery Finisher: PSCB Transcribe Date/Time: Nov 29 2024 8:57A Dictated by : EMIL HENRY MD This examination was interpreted and the report reviewed and electronically signed by: EMIL HENRY MD on Nov 29 2024 9:02AM EST [id number] [facility] US.doppler Abdominal vessels on 11-29-2024 * * *Final Report* * * DATE OF EXAM: Nov 29 2024 8:47AM RHU 1233 - US ABD LIVER VASCULAR / PROCEDURE REASON: SPLENOMEGALY, PH * * * * Physician Interpretation * * * * EXAMINATION: LIVER VASCULAR ULTRASOUND WITH DOPPLER IMAGING CLINICAL HISTORY: Splenomegaly. PH. TECHNIQUE: Sonography of the liver with color and spectral Doppler imaging of the hepatic vasculature was performed. Images were obtained and stored in a permanent archive. MQ: USLV_1 COMPARISON: None. RESULT: Sonographic Findings: Pancreas: Normal sonographic appearance. Portions obscured: tail Liver: 16.3 cm in length Echotexture: Normal, homogeneous. Echogenicity: Increased Surface contour: Smooth Lesions: None. Biliary: No intrahepatic biliary duct dilation. CBD: 0.2 cm at the hilum. Gallbladder: Normal caliber -Contents: No cholelithiasis -Wall: Normal -Other: No pericholecystic fluid. Right Kidney: No hydronephrosis. Spleen: Craniocaudal length 17.7 cm, enlarged. There are no splenic lesions. Other: No ascites HEPATIC VASCULATURE: PORTAL SYSTEM: -Splenic Vein: Patent with antegrade flow (towards the liver). -Main PV: Patent with normal, phasic antegrade flow (towards liver). 20 cm/sec -Right anterior PV: Patent with phasic antegrade flow (towards liver). -Right posterior PV: Patent with phasic antegrade flow (towards liver). -Left PV: Patent with phasic antegrade flow (towards liver). Splenorenal shunt: None Recanalized paraumbilical vein: None HEPATIC ARTERIES: - Main MURRAY: Normal waveform PSV: 38 cm/sec. RI: 0.7 - Right anterior MRURAY: Normal waveform - Right posterior MURRAY: Normal waveform - Left MURRAY: Normal waveform HEPATIC VEINS: -Left: Patent with triphasic waveform. -Middle: Patent with triphasic waveform. -Right: Patent with triphasic waveform. IVC: Patent with normal, phasic wave form. [facility] Provider, Doug Coronado - 11/29/2024 * * *Final Report* * * DATE OF EXAM: Nov 29 2024 8:47AM RHU 1233 - US ABD LIVER VASCULAR / PROCEDURE REASON: SPLENOMEGALY, PH * * * * Physician Interpretation * * * * EXAMINATION: LIVER VASCULAR ULTRASOUND WITH DOPPLER IMAGING CLINICAL HISTORY: Splenomegaly. PH. TECHNIQUE: Sonography of the liver with color and spectral Doppler imaging of the hepatic vasculature was performed. Images were obtained and stored in a permanent archive. MQ: USLV_1 COMPARISON: None. RESULT: Sonographic Findings: Pancreas: Normal sonographic appearance. Portions obscured: tail Liver: 16.3 cm in length Echotexture: Normal, homogeneous. Echogenicity: Increased Surface contour: Smooth Lesions: None. Biliary: No intrahepatic biliary duct dilation. CBD: 0.2 cm at the hilum. Gallbladder: Normal caliber -Contents: No cholelithiasis -Wall: Normal -Other: No pericholecystic fluid. Right Kidney: No hydronephrosis. Spleen: Craniocaudal length 17.7 cm, enlarged. There are no splenic lesions. Other: No ascites HEPATIC VASCULATURE: PORTAL SYSTEM: -Splenic Vein: Patent with antegrade flow (towards the liver). -Main PV: Patent with normal, phasic antegrade flow (towards liver). 20 cm/sec -Right anterior PV: Patent with phasic antegrade flow (towards liver). -Right posterior PV: Patent with phasic antegrade flow (towards liver). -Left PV: Patent with phasic antegrade flow (towards liver). Splenorenal shunt: None Recanalized paraumbilical vein: None HEPATIC ARTERIES: - Main MURRAY: Normal waveform PSV: 38 cm/sec. RI: 0.7 - Right anterior MURRAY: Normal waveform - Right posterior MURRAY: Normal waveform - Left MURRAY: Normal waveform HEPATIC VEINS: -Left: Patent with triphasic waveform. -Middle: Patent with triphasic waveform. -Right: Patent with triphasic waveform. IVC: Patent with normal, phasic wave form. IMPRESSION IMPRESSION: Patent hepatic vasculature with appropriately directed flow. Diffuse increased echogenicity compatible with steatosis or other chronic diffuse hepatocellular process. Splenomegaly, without focal abnormality Embroidery Finisher: CLAUDIA Transcribe Date/Time: Nov 29 2024 8:57A Dictated by : EMIL HENRY MD This examination was interpreted and the report reviewed and electronically signed by: EMIL HENRY MD on Nov 29 2024 9:02AM EST [facility] US.doppler Unspecified body regionon 11-29-2024 * * *Final Report* * * DATE OF EXAM: Nov 29 2024 8:47AM RHU 1033 - US DOPPLER COMPLETE / PROCEDURE REASON: SPLENOMEGALY, PH * * * * Physician Interpretation * * * * EXAMINATION: LIVER VASCULAR ULTRASOUND WITH DOPPLER IMAGING CLINICAL HISTORY: Splenomegaly. PH. TECHNIQUE: Sonography of the liver with color and spectral Doppler imaging of the hepatic vasculature was performed. Images were obtained and stored in a permanent archive. MQ: USLV_1 COMPARISON: None. RESULT: Sonographic Findings: Pancreas: Normal sonographic appearance. Portions obscured: tail Liver: 16.3 cm in length Echotexture: Normal, homogeneous. Echogenicity: Increased Surface contour: Smooth Lesions: None. Biliary: No intrahepatic biliary duct dilation. CBD: 0.2 cm at the hilum. Gallbladder: Normal caliber -Contents: No cholelithiasis -Wall: Normal -Other: No pericholecystic fluid. Right Kidney: No hydronephrosis. Spleen: Craniocaudal length 17.7 cm, enlarged. There are no splenic lesions. Other: No ascites HEPATIC VASCULATURE: PORTAL SYSTEM: -Splenic Vein: Patent with antegrade flow (towards the liver). -Main PV: Patent with normal, phasic antegrade flow (towards liver). 20 cm/sec -Right anterior PV: Patent with phasic antegrade flow (towards liver). -Right posterior PV: Patent with phasic antegrade flow (towards liver). -Left PV: Patent with phasic antegrade flow (towards liver). Splenorenal shunt: None Recanalized paraumbilical vein: None HEPATIC ARTERIES: - Main MURRAY: Normal waveform PSV: 38 cm/sec. RI: 0.7 - Right anterior MURRAY: Normal waveform - Right posterior MURRAY: Normal waveform - Left MURRAY: Normal waveform HEPATIC VEINS: -Left: Patent with triphasic waveform. -Middle: Patent with triphasic waveform. -Right: Patent with triphasic waveform. IVC: Patent with normal, phasic wave form. [facility] Provider, Doug Coronado - 11/29/2024 * * *Final Report* * * DATE OF EXAM: Nov 29 2024 8:47AM U 1033 - US DOPPLER COMPLETE / PROCEDURE REASON: SPLENOMEGALY, PH * * * * Physician Interpretation * * * * EXAMINATION: LIVER VASCULAR ULTRASOUND WITH DOPPLER IMAGING CLINICAL HISTORY: Splenomegaly. PH. TECHNIQUE: Sonography of the liver with color and spectral Doppler imaging of the hepatic vasculature was performed. Images were obtained and stored in a permanent archive. MQ: USLV_1 COMPARISON: None. RESULT: Sonographic Findings: Pancreas: Normal sonographic appearance. Portions obscured: tail Liver: 16.3 cm in length Echotexture: Normal, homogeneous. Echogenicity: Increased Surface contour: Smooth Lesions: None. Biliary: No intrahepatic biliary duct dilation. CBD: 0.2 cm at the hilum. Gallbladder: Normal caliber -Contents: No cholelithiasis -Wall: Normal -Other: No pericholecystic fluid. Right Kidney: No hydronephrosis. Spleen: Craniocaudal length 17.7 cm, enlarged. There are no splenic lesions. Other: No ascites HEPATIC VASCULATURE: PORTAL SYSTEM: -Splenic Vein: Patent with antegrade flow (towards the liver). -Main PV: Patent with normal, phasic antegrade flow (towards liver). 20 cm/sec -Right anterior PV: Patent with phasic antegrade flow (towards liver). -Right posterior PV: Patent with phasic antegrade flow (towards liver). -Left PV: Patent with phasic antegrade flow (towards liver). Splenorenal shunt: None Recanalized paraumbilical vein: None HEPATIC ARTERIES: - Main MURRAY: Normal waveform PSV: 38 cm/sec. RI: 0.7 - Right anterior MURRAY: Normal waveform - Right posterior MURRAY: Normal waveform - Left MURRAY: Normal waveform HEPATIC VEINS: -Left: Patent with triphasic waveform. -Middle: Patent with triphasic waveform. -Right: Patent with triphasic waveform. IVC: Patent with normal, phasic wave form. IMPRESSION IMPRESSION: Patent hepatic vasculature with appropriately directed flow. Diffuse increased echogenicity compatible with steatosis or other chronic diffuse hepatocellular process. Splenomegaly, without focal abnormality Embroidery Finisher: CLAUDIA Transcribe Date/Time: Nov 29 2024 8:57A Dictated by : EMIL HENRY MD This examination was interpreted and the report reviewed and electronically signed by: EMIL HENRY MD on Nov 29 2024 9:02AM EST [facility] Bedside Glucoseon 11-10-2024 FINGERSTICK GLU 104 mg/dL Normal 74-106 [facility] Comment on above: Result Comment: SOTO ROGERS OF PATIENT CARE PER NURSING PROTOCOL Performed By: #### L 501.080 #### [facility] [address] [place], [place], [address] Biopsy/Inj or Needle Placeme nton 11-10-2024 Biopsy/Inj or Needle Placement [facility] Imaging Services [address] [place], [place] [address] Biopsy/Inj or Needle Placement MR#: [id number] Acct: [id number] Name: NATTY ZAIDI Rep #: [id number] : 1960 M 64 From: Ruddy olivier MD PCP: BOYD Rodgers Status: REG CLI Study: Biopsy/Inj or Needle Placement Date of Exam: 0 11/10/24 Exam# [id number] Ordering Dr: Werner Pérez DO EXAM: CT-guided core biopsy of the liver. CLINICAL HISTORY: Abnormal liver function tests. COMPARISON: None TECHNIQUE: The procedure as well as the benefits and possible complications including infection and bleeding were explained to the patient. Informed consent was obtained. Conscious sedation was performed. The patient received 50 mcg of fentanyl intravenously. Conscious sedation was started at 8:39 a.m. and terminated at 8:54 a.m.. The patient was independently monitored by the department nurse. The patient was in the supine position. The overlying skin was prepped and draped in the usual sterile fashion. Following local anesthetic application, an 18 gauge core biopsy needle system was placed into the left hepatic lobe. 4 core biopsies were performed. The patient tolerated the procedure well. No immediate complication was noted. FINDINGS: Successful CT-guided core biopsy of the left lobe of the liver. CT/Biopsy/Inj or Needle Placement IMPRESSION: Successful CT-guided core biopsy of the left lobe of the liver. Patient tolerated the procedure well. No immediate complication noted. Reading Location: [place] [address] CC: BOYD Banerjee; Werner Pérez DO Embroidery Finisher: Signed Normal [facility] Gl[facility] at [facility] deOrdered By: Werner Pérez on 11-10-2024 Glucose [Mass/Vol] 104 mg/dL 74-106 [facility] Comment on above: MANAGEMENT OF PATIEN T CARE PER NURSING PROTOCOL L305.1805on 11-10-2024 Path [facility] Liver SEE PATHOLOGY REPORT Normal [facility] Comment on above: Order Comment: RESULTS FAXED 11/16/24 0840 Sen Garcia. Result Comment: Spec imen sent to [facility] Pathology Department. Report available in EMR. Performed By: #### L 305.1805 #### [facility] [address] [place], [address] Absolute lymphocyte countOrd ered By: Sergey Elliott on 11-01-2024 Lymphocytes Auto (Unsp spec) [#/Vol] 1.18 10*3/uL 0.83-4.51 [facility] Absolute neutrophil countOrd ered By: Sergey Elliott on 11-01-2024 Neutrophils (Bld) [#/Vol] 2.5 10*3/uL 2.0-7.7 [facility] Automated lymphocyte count a s percentage of total leukocytesOrdered By: Sergey Elliott on 11-01-2024 Lymphocytes/100 WBC Auto (Unsp spec) 27.7 % 19-41 [facility] Basophil percentageOrdered B y: Sergey Elliott on 11-01-2024 Basophils/100 WBC (Bld) 0.9 % 0-1 [facility] Blood manual differential co mment interpretation (narrative result)Ordered By: Sergey Elliott on 11-01-2024 Manual differential comment Cassius (Bld) [Interp] SCANNED [facility] CBC W/Diff, Automatedon 10-23 PLT EST MOD DEC Normal ADEQ [facility] Comment on above: Performed By: #### L 300.3900, L100.0100 #### [facility] [address] [place], [address] SMEAR COMMENT SCANNED Normal [facility] Comment on above: Performed By: #### L 300.3900, L100.0100 #### [facility] [address] [place], [address] Eosinophil percentageOrdered By: Sergey Elliott on 11-01-2024 Eosinophils/100 WBC (Bld) 3.3 % 0-5 [facility] Erythrocyte distribution wid th ratioOrdered By: Sergey Elliott on 11-01-2024 Erythrocyte distribution width (RBC) [Ratio] 12.5 % 11.6-14.6 [facility] Erythrocyte distribution wid th standard deviationOrdered By: Sergey Elliott on 11-01-2024 Erythrocyte distribution width (RBC) [Ratio] 41.0 fl 35.1-43.9 [facility] Gastroenterology Visit Repor ton 11-01-2024 Gastroenterology Visit Report [facility] Gastroenterology [address] [place] [address] OFFICE VISIT Date of Service: 11/01/24 MR#: [id number] Acct: [id number] Name: NATTY ZAIDI Rep #: [id number] : 1960 Provider: Dr. Sergey sibley MD Age/Sex: 64/M Location: [facility] Status: Signed with Addenda ADDENDUM by Dr. Sergey Elliott MD on 11/01/24 at 1531 HPI Details: NATTY ZAIDI, is a 64 M who presents to the office today for Addendum Social history: Patient drinks on weekends lightly during high school period but never been there big drinker. Smoking: History of smoking a pack per day since 19-year of age until he quit 7 years ago. Then he started vaping. Denies substance use Family history: His brother has Crohn's disease and multiple sclerosis in diet couple years ago Mother had colon cancer and she . Mother sister had pancreatic cancer 11/01/24 1531 Date Sergey Elliott MD cc: * Signed Intake Vital Signs 11/01/24 14:02 Height 6 ft 1 in Weight: 234 lb BMI 30.9 BP 113/75 Blood Pressure Location Rt brachial Position Sitting Pulse 82 Pulse Oximetry (%) 93 Oxygen Delivery Method room air Intake Visit Reasons: Liver Issues Allergies amoxicillin (From Augmentin) Allergy (Verified 11/01/24 13:59) Hives clavulanic acid (From Augmentin) Allergy (Verified 11/01/24 13:59) Hives midazolam (From Versed) Allergy (Verified 11/01/24 13:59) Other Medications ???Medication ???Instructions ???Recorded ???Confirmed ???Type acetaminophen 500 mg capsule 500 mg PO Q6H PRN 08/04/24 5 History gabapentin 100 mg capsule 100 mg PO BID 08/04/24 11/01/24 Hi story glimepiride 1 mg tablet 1 mg PO QDAY 08/04/24 11/01/24 His tory metformin 500 mg tablet 500 mg PO BID 08/04/24 11/01/24 Hi story pantoprazole 20 mg tablet,delayed 20 mg PO QDAY 08/04/24 11/01/24 H istory release pramipexole 0.5 mg tablet 0.5 mg PO QDAY 08/04/24 11/01/24 H istory citalopram 10 mg/5 mL oral solution 5 mg PO QDAY 08/17/24 11/01/24 History ursodiol 500 mg tablet 500 mg PO BID 3 months #180 tabs 0 11/01/24 11/01/24 Rx PFSH Social History Smoking Status: Never smoker alcohol intake: never HPI HPI Details: NATTY ZAIDI, is a 64 M who presents to the office today for hepatology consult. *BGI established 3.26.25 pt reports that is apr 2022 he saw his pcp who did a physical exam and told pt he felt his liver was enflamed. Shortly after he was diagnosed with DMII. Pt reports he has had scopes and imaging that show enlarged liver and spleen. He reports that he was previously seeing the ASSOCIATE PASTOR that works with Dr Lloyd and was told he needs to be on a list for a liver transplant. Pt is looking for some clarification and more information on his diagnoses. Pt reports that pantoprazole is helpful for his heartburn. Pt reports that he is seeing cooperative manager, Dr Reynoso, for his low platelet count. OV 10.19.24 pt reports that he is feeling well overall and denies GI symptoms of concern at this time. Pt reports occasional itchy skin and notes some dizziness related to his medications. Pt denies trouble sleeping, swelling, confusion / brain fog, and diarrhea or constipation. Pt is here to review lab work. OV 6- ROS Const Constitutional: No fatigue, fever(s) or weight change ENT ENT: No difficulty swallowing Resp Respiratory: No shortness of breath or wheezing Cardio Cardiology: No chest pain at rest or dyspnea on exertion Gastro GI: No abdominal pain, belching, bloating, change in bowel habits, change in stool character, coffee ground emesis, constipation, cramping, diarrhea, heartburn, difficulty swallowing, feeling full early, excessive flatus, incontinent of stools, Vomiting blood/hematemesis, Blood in stool, loose stools, Black,tarry stools, nausea/dyspepsia, pain with swallowing, vomiting or other Genitourinary Male: No difficulty urinating or burning urination Musc Musculoskeletal: Positive for Arthritis and restless legs; No joint pain Skin Skin: No yellowing of the eye or itchy eyes Neuro Neurology: Positive for restless legs Psych Psychiatric: No anxiety and No depression Endo Endocrine: No fatigue or weight change Aller/Imm Allergy/Immunologic: No itchy eyes or wheezing Bro/Lymp Hematologic/Lymphatic: No easy bleeding or easy bruising Exam Const General: cooperative, no acute distress and well developed Nutritional Appearance: average body habitus Orientation: alert, awake and oriented x3 HENMT Head: normocephalic and atraumatic Nose: external nose normal Face and sinus: normal facial exam Mouth: moist mucous membranes Eyes Pupils: PERRL EOM: EOM (more content not included)... Normal [facility] Hematocrit Auto (Bld) [Volum e fraction]Ordered By: Sergey Elliott on 11-01-2024 Hematocrit (Bld) [Volume fraction] 41.4 % 40-54 [facility] Hemoglobin measurementOrdere d By: Sergey Elliott on 11-01-2024 Hemoglobin (Bld) [Mass/Vol] 14.4 g/dL 13.0-16.5 [facility] Immature granulocytes/100 WB C Auto (Bld)Ordered By: Sergey Elliott on 11-01-2024 Immature granulocytes/100 WBC (Bld) 0.500 % 0.0-0.9 [facility] Comment on above: IG% - Immature Granu locytes (promyelocytes, myelocytes and metamyelocytes) > 1% indicates that a LEFT SHIFT is Present. International normalized rat io (INR) calculationOrdered By: Sergey Elliott on 11-01-2024 INR Coag (Bld) [Relative time] 1.0 {INR} [facility] MCV (mean corpuscular volume ) determinationOrdered By: Sergey Elliott on 11-01-2024 MCV (RBC) [Entitic vol] 90.0 fL 80-94 [facility] Mean corpuscular hemoglobin (MCH) determinationOrdered By: Sergey Elliott on 11-01-2024 MCH (RBC) [Entitic mass] 31.3 pg 27.0-32.0 [facility] Mean corpuscular hemoglobin concentration (MCHC) determinationOrdered By: Sergey Elliott on 11-01-2024 MCHC (RBC) [Mass/Vol] 34.8 g/dL 32-36 [facility] Mean platelet volume determi nationOrdered By: Sergey Elliott on 11-01-2024 Platelet mean volume (Bld) [Entitic vol] 11.2 fL 6.2-12.0 [facility] Monocyte percentageOrdered B y: Sergey Elliott on 11-01-2024 Monocytes/100 WBC (Bld) 8.7 % 0-10 [facility] Neutrophil percentageOrdered By: Sergey Elliott on 11-01-2024 Neutrophils/100 WBC (Bld) 58.9 % 47-70 [facility] Nucleated red blood cell per centageOrdered By: Sergey Elliott on 11-01-2024 Nucleated RBC/100 WBC (Bld) [Ratio] 0 % 0-5 [facility] Platelet countOrdered By: Sabi Elliott on 11-01-2024 Platelets (Bld) [#/Vol] 99 10*3/uL Low 150-450 [facility] Platelet estimateOrdered By: Sergey Elliott on 11-01-2024 Platelets LM Ql (Bld) MOD DEC ADEQ [facility] Prothrombin Time w/INRon INR Coag (PPP) [Relative time] 1.0 {INR} Normal [facility] Comment on above: Performed By: #### L 300.3900, L100.0100 #### [facility] [address] [place], [address] PT Coag (PPP) [Time] 13.2 s Normal 11.7-14.9 [facility] Comment on above: Performed By: #### L 300.3900, L100.0100 #### [facility] [address] [place], [address] Prothrombin timeOrdered By: Sergey Elliott on 11-01-2024 PT Coag (PPP) [Time] 13.2 s 11.7-14.9 [facility] RBC Auto (Bld) [#/Vol]Ordere d By: Sergey Elliott on 11-01-2024 RBC (Bld) [#/Vol] 4.60 10*6/uL 4.6-6.2 [facility] White blood cell (WBC) count Ordered By: Sergey Elliott on 11-01-2024 WBC (Bld) [#/Vol] 4.3 10*3/uL Low 4.4-11.0 [facility] Gastroenterology Visit Repor ton 10-19-[address] [facility]ology [address] [place] [address] OFFICE VISIT Date of Service: 10/19/24 MR#: [id number] Acct: [id number] Name: NATTY ZAIDI Rep #: [id number] : 1960 Provider: Werner Pérez DO Age/Sex: 63/M Location: [facility] Status: Signed Intake Vital Signs 10/19/24 07:38 Weight: 236 lb Intake Visit Reasons: 4 M FU Allergies amoxicillin (From Augmentin) Allergy (Verified 08/04/24 14:42) Hives clavulanic acid (From Augmentin) Allergy (Verified 08/04/24 14:42) Hives midazolam (From Versed) Allergy (Verified 08/04/24 14:42) Other Medications ???Medication ???Instructions ???Recorded ???Confirmed ???Type acetaminophen 500 mg capsule 500 mg PO Q6H PRN 08/04/24 5 History gabapentin 100 mg capsule 100 mg PO BID 08/04/24 10/19/24 Hi story glimepiride 1 mg tablet 1 mg PO QDAY 08/04/24 10/19/24 His tory metformin 500 mg tablet 500 mg PO BID 08/04/24 10/19/24 Hi story pantoprazole 20 mg tablet,delayed 20 mg PO QDAY 08/04/24 10/19/24 H istory release pramipexole 0.5 mg tablet 0.5 mg PO QDAY 08/04/24 10/19/24 H istory citalopram 10 mg/5 mL oral solution 5 mg PO QDAY 08/17/24 10/19/24 History ursodiol 250 mg tablet 250 mg PO BID 3 months #180 tabs 0 10/19/24 10/19/24 Rx HPI HPI Details: NATTY ZAIDI, is a 63 M who presents to the office today for follow up. *BGI established 3 pt reports that is apr 2022 he saw his pcp who did a physical exam and told pt he felt his liver was enflamed. Shortly after he was diagnosed with DMII. Pt reports he has had scopes and imaging that show enlarged liver and spleen. He reports that he was previously seeing the ASSOCIATE PASTOR that works with Dr Lloyd and was told he needs to be on a list for a liver transplant. Pt is looking for some clarification and more information on his diagnoses. Pt reports that pantoprazole is helpful for his heartburn. Pt reports that he is seeing cooperative manager, Dr Reynoso, for his low platelet count. OV 5.28.25 pt reports that he is feeling well overall and denies GI symptoms of concern at this time. Pt reports occasional itchy skin and notes some dizziness related to his medications. Pt denies trouble sleeping, swelling, confusion / brain fog, and diarrhea or constipation. Pt is here to review lab work. ROS Const Constitutional: No fatigue, fever(s) or weight change ENT ENT: No difficulty swallowing Gastro GI: No abdominal pain, belching, bloating, change in bowel habits, change in stool character, coffee ground emesis, constipation, cramping, diarrhea, heartburn, difficulty swallowing, feeling full early, excessive flatus, incontinent of stools, Vomiting blood/hematemesis, Blood in stool, loose stools, Black,tarry stools, nausea/dyspepsia, pain with swallowing, vomiting or other Musc Musculoskeletal: Positive for Arthritis, sciatica, restless legs and leg pain at night; No joint pain Skin Skin: No yellowing of the eye or itchy eyes Neuro Neurology: Positive for restless legs Psych Psychiatric: No anxiety and No depression Endo Endocrine: No fatigue or weight change Aller/Imm Allergy/Immunologic: No itchy eyes Bro/Lymp Hematologic/Lymphatic: Positive for easy bruising; No easy bleeding Assessment and Plan Assessment and Plan (1) Gastroesophageal reflux disease: (2) Cirrhosis: Status: Acute Plan: This is a very pleasant 63-year-old gentleman with unfortunate recent diagnosis of cirrhosis complicated by hepatomegaly, splenomegaly without jaundice, ascites or encephalopathy. 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 He has been struggling with thrombocytopenia secondary to massive splenomegaly that has been managed by a cooperative manager. On his previous imaging there was no signs of liver lesions or any signs of thrombosis. It did see significant portal hypertension without any sign of gastric varices or gastroesophageal varices noted on his previous CT scan abdomen pelvis. He has never had a liver biopsy, CTA or MRI to screen for hepatocellular carcinoma. He has no family history of liver disease. He did previously have a BMI of 45 but he lost over 60 pounds and his BMI is currently down to 34. He has been very aggressive with his diet and exercise regimen. His exercise is partially limited due to severe arthritis of his right knee. Assessment/plan: -Cirrhosis-we will need to do MELD labs. At this time from his previous labs he appears to be a child Lindo class a with complications of hepatosplenomegaly without ascites, encephalopathy or jaundice at this time -Thrombocytopenia last platelet count was 98 -Chronic liver disease we will perform biochemical workup along with liver biopsy to stage his disease and see if the (more content not included)... Normal [facility] Misc.on 08-31-2024 [facility]. COMMENT Normal . [facility] Comment on above: Order Comment: [id number] 0ANTITRYPSIN PROFILE RED LAV RT Result Comment: Test Ordered: [id number] A1A, Quant+Genotype(Rfx Pheno) Nlaub-6-Llahemvnbde, Serum 150 mg/dL BN Reference Range: 101-187 AAT, DNA Analysis Comment TG Reference Range: . Result: c.1096 G>A (p.[id number]), Z allele - Not detected c.863 A>T (p.Hbr123Eoz), S allele - Not detected Not associated with increased risk of developing clinically relevant symptoms of alpha-1 antitrypsin deficiency. See Additional Clinical Information and Comments. Additional Information: Comment TG Reference Range: . Additional Clinical Information: Alpha-1 antitrypsin deficiency is an autosomal recessive metabolic disorder with variable severity and age at onset. Signs and symptoms may include increased risk for chronic obstructive lung disease that typically manifests after age 30, liver disease, and liver cancer. Liver disease can be present in infancy as cholestasis (jaundice) or in adulthood as cirrhosis and fibrosis. Lung and liver disease may be accelerated by environmental exposures such as smoking and excessive alcohol use. Established treatments for COPD and emphysema are used to treat lung disease; lung and/or liver transplantation may be an option for those with with severe disease. Intravenous augmentation therapy may be available for patients who meet criteria. Comments: The ZZ and SZ genotypes account for more than 95% of individuals with severe alpha-1 antitrypsin deficiency. To rule out other variants, further testing of symptomatic individuals heterozygous for one variant (S or Z) or with negative results may include phenotyping (PI typing), AAT level testing, and/or expanded genotyping. Genetic counseling is recommended to discuss the potential clinical implications of positive results, as well as recommendations for testing family members. Genetic Coordinators are available for health care providers to discuss results at [phone] ([phone]). Test Details: Two variants analyzed: c.1096 G>A (p.[id number]), commonly referred to as the Z allele or PI*Z c.863 A>T (p.Rch247Gdt), commonly referred to as the S allele or PI*S Methods/Limitations: DNA analysis of the S and Z alleles in the SERPINA1 gene (NM_[id number]) was performed by multiplex allele-specific PCR amplification followed by gel electrophoresis. Results must be combined with clinical information for the most accurate interpretation. Molecular-based testing is highly accurate, but as in any laboratory test, rare diagnostic errors may occur. False positive or false negative results may occur for reasons that include genetic variants, blood transfusions, bone marrow transplantation, somatic or tissue-specific mosaicism, mislabeled samples, or erroneous representation of family relationships. This test was developed and its performance characteristics determined by [employer]. It has not been cleared or approved by the Food and Drug Administration. References: Miranda RA, Angelo G, Nereyda ML, Frankie M, Ra CE, K, Estevan DK, Carroll SL, Jose JM, Lemuel NICOLE, Danielle C, Kunal J. The Diagnosis and Management of Alpha- 1 Antitrypsin Deficiency in the Adult. Chronic Obstr Pulm Dis. 2016 Oct 6;3(3):668-682. doi: 10.14707/jcopdf.3.3.0182. PMID: 95772283; PMCID: [id number]. Lemuel NICOLE, Dawson V, Diogenes DODD. Alpha-1 Antitrypsin Deficiency. 2005Mar 20 [Updated 2019October 12]. In: Ricky MP, Leland HH, Tracy YE, et al., editors. Danae(R) [Internet]. [place] ([place]): [facility], [place]; 1704-8671. Available from: https://www.ncbi.nlm.nih.gov/books/TCI2893/ Electronically Signed by: Comment TG Reference Range: . Cali Valero, Ph.D., FACMG A1A Rfx to Phenotype Note: BN Not Indicated Reference Range: . Performed at: BN - [facility] [address] [place], [place] [id number] Apron Trimmer: Lucrecia Meza MD, Phone: [phone] Performed at: - [facility] [address] [place], [place] [id number] Apron Trimmer: Elissa Caballero [facility], Phone: [phone] Performed at: - [address] [id number] Apron Trimmer: Cesar Bruno PhD, Phone: [phone] Performed By: #### L 3410.9998, L3100.5440, L3200.1100, L3100.1850, L504.2610, L3200.0500, L300.4310, L3100.6900, L300.3900, L501.9985, L3100.3425, L3300.0700, L803.2200, L500.4050, L3000.0375, L3410.2400, L800.1280, L503.5510, L3300.1200, L3300.0100, L3400.0700 ####[facility] [address] [place], [address] AFP, Tumor Markeron 08-28-19 25 AFP TUMOR RUPALI < 1.8 Normal 0.0-8.4 [facility] Comment on above: Order Comment: Test( s) [id number]-[id number], Serum or Plasmawas developed and its performance characteristicsdetermined by [facility]. It has not been cleared or approvedby the Food and Drug Administration.[id number] Result Comment: [facility] Electrochemiluminescence Immunoassay (ECLIA) Values obtained with different assay methods or kits cannot be used interchangeably. Results cannot be interpreted as absolute evidence of the presence or absence of malignant disease. This test is not interpretable in females. Performed By: #### L 3410.9998, L3100.5440, L3200.1100, L3100.1850, L504.2610, L3200.0500, L300.4310, L3100.6900, L300.3900, L501.9985, L3100.3425, L3300.0700, L803.2200, L500.4050, L3000.0375, L3410.2400, L800.1280, L503.5510, L3300.1200, L3300.0100, L3400.0700 ####[facility] [address] [facility]. [place], [place], [address] ANCAon 08-27-2024 Atypical pANCA <1:20 Normal Neg:<1:20 [facility] Comment on above: Order Comment: Test( s) 434973-Bfnajw, Serum or Plasmawas developed and its performance characteristicsdetermined by [facility]. It has not been cleared or approvedby the Food and Drug Administration. Result Comment: The atypical pANCA pattern has been observed in a significant percentage of patients with ulcerative colitis, primary sclerosing cholangitis and autoimmune hepatitis. Performed By: #### L 3410.9998, L3100.5440, L3200.1100, L3100.1850, L504.2610, L3200.0500, L300.4310, L3100.6900, L300.3900, L501.9985, L3100.3425, L3300.0700, L803.2200, L500.4050, L3000.0375, L3410.2400, L800.1280, L503.5510, L3300.1200, L3300.0100, L3400.0700 ####[facility] [address] [place], [address] Cytoplasmic Ab <1:20 Normal Neg:<1:20 [facility] Comment on above: Order Comment: Test( s) 594544-Tfnxvn, Serum or Plasmawas developed and its performance characteristicsdetermined by [facility]. It has not been cleared or approvedby the Food and Drug Administration. Performed By: #### L 3410.9998, L3100.5440, L3200.1100, L3100.1850, L504.2610, L3200.0500, L300.4310, L3100.6900, L300.3900, L501.9985, L3100.3425, L3300.0700, L803.2200, L500.4050, L3000.0375, L3410.2400, L800.1280, L503.5510, L3300.1200, L3300.0100, L3400.0700 ####[facility] [address] [place], [place], [address] Perinuclear Ab. <1:20 Normal Neg:<1:20 [facility] Comment on above: Order Comment: Test( s) 447337-Aebmxw, Serum or Plasmawas developed and its performance characteristicsdetermined by [facility]. It has not been cleared or approvedby the Food and Drug Administration. Result Comment: The presence of positive fluorescence exhibiting P-ANCA or C-ANCA patterns alone is not specific for the diagnosis of Rosario's Granulomatosis (WG) or microscopic polyangiitis. Decisions about treatment should not be based solely on ANCA IFA results. The International ANCA Group Consensus recommends follow up testing of positive sera with both KY- 3 and MPO-ANCA enzyme immunoassays. As many as 5% serum samples are positive only by EIA. Ref. AM J Clin Pathol 1999;111:507-513. Performed By: #### L 3410.9998, L3100.5440, L3200.1100, L3100.1850, L504.2610, L3200.0500, L300.4310, L3100.6900, L300.3900, L501.9985, L3100.3425, L3300.0700, L803.2200, L500.4050, L3000.0375, L3410.2400, L800.1280, L503.5510, L3300.1200, L3300.0100, L3400.0700 ####[facility] [address] [place], [place], [id number] Angiotensin Convert Enzymeon 08-27-2024 ANGIOT-CONV.ENZ 52 U/L Normal 14-82 [facility] Comment on above: Order Comment: Test( s) 623514-Zmuktb, Serum or Plasmawas developed and its performance characteristicsdetermined by [facility]. It has not been cleared or approvedby the Food and Drug Administration. Performed By: #### L 3410.9998, L3100.5440, L3200.1100, L3100.1850, L504.2610, L3200.0500, L300.4310, L3100.6900, L300.3900, L501.9985, L3100.3425, L3300.0700, L803.2200, L500.4050, L3000.0375, L3410.2400, L800.1280, L503.5510, L3300.1200, L3300.0100, L3400.0700 ####[facility] [address] [place], [address] Anti-Smooth Muscle ABSon ANTISMOOTH MUSC 8 Units Normal 0-19 [facility] Comment on above: Order Comment: Test( s) 735129-Tscjrl, Serum or Plasmawas developed and its performance characteristicsdetermined by [facility]. It has not been cleared or approvedby the Food and Drug Administration. Result Comment: Nega tive 0 - 19 Weak positive 20 - 30 Moderate to strong positive >30 Actin Antibodies are found in 52-85% of patients with autoimmune hepatitis or chronic active hepatitis and in 22% of patients with primary biliary cirrhosis. Performed By: #### L 3410.9998, L3100.5440, L3200.1100, L3100.1850, L504.2610, L3200.0500, L300.4310, L3100.6900, L300.3900, L501.9985, L3100.3425, L3300.0700, L803.2200, L500.4050, L3000.0375, L3410.2400, L800.1280, L503.5510, L3300.1200, L3300.0100, L3400.0700 ####[facility] [address] [place], [address] Celiac Disease Profileon ENDOMYSIAL IGA Negative Normal Negative [facility] Comment on above: Order Comment: Test( s) 644546-Qjujac, Serum or Plasmawas developed and its performance characteristicsdetermined by [facility]. It has not been cleared or approvedby the Food and Drug Administration. Performed By: #### L 3410.9998, L3100.5440, L3200.1100, L3100.1850, L504.2610, L3200.0500, L300.4310, L3100.6900, L300.3900, L501.9985, L3100.3425, L3300.0700, L803.2200, L500.4050, L3000.0375, L3410.2400, L800.1280, L503.5510, L3300.1200, L3300.0100, L3400.0700 ####[facility] [address] [facility] [place], [address] tTG IGA 3 U/mL Normal 0-3 [facility] Comment on above: Order Comment: Test( s) 441996-Llqqpi, Serum or Plasmawas developed and its performance characteristicsdetermined by [facility]. It has not been cleared or approvedby the Food and Drug Administration. Result Comment: Nega tive 0 - 3 Weak Positive 4 - 10 Positive >10 Tissue Transglutaminase (tTG) has been identified as the endomysial antigen. Studies have demonstr- ated that endomysial IgA antibodies have over 99% specificity for gluten sensitive enteropathy. Performed By: #### L 3410.9998, L3100.5440, L3200.1100, L3100.1850, L504.2610, L3200.0500, L300.4310, L3100.6900, L300.3900, L501.9985, L3100.3425, L3300.0700, L803.2200, L500.4050, L3000.0375, L3410.2400, L800.1280, L503.5510, L3300.1200, L3300.0100, L3400.0700 ####[facility] [address] [facility] [place], [address] Ceruloplasminon 08-27-2024 CERULOPLASMIN 22.0 mg/dL Normal 16.0-31.0 [facility] Comment on above: Order Comment: Test( s) 037464-Bjuugo, Serum or Plasmawas developed and its performance characteristicsdetermined by [facility]. It has not been cleared or approvedby the Food and Drug Administration. Performed By: #### L 3410.9998, L3100.5440, L3200.1100, L3100.1850, L504.2610, L3200.0500, L300.4310, L3100.6900, L300.3900, L501.9985, L3100.3425, L3300.0700, L803.2200, L500.4050, L3000.0375, L3410.2400, L800.1280, L503.5510, L3300.1200, L3300.0100, L3400.0700 ####[facility] [address] [facility]. [place], [place], [id number] Copper, Serum or Plasmaon COPPER, SERUM 66 ug/dL Low 69-132 [facility] Comment on above: Order Comment: Test( s) 737501-Wmivcm, Serum or Plasmawas developed and its performance characteristicsdetermined by [facility]. It has not been cleared or approvedby the Food and Drug Administration. Result Comment: Dete ction Limit = 5 Performed By: #### L 3410.9998, L3100.5440, L3200.1100, L3100.1850, L504.2610, L3200.0500, L300.4310, L3100.6900, L300.3900, L501.9985, L3100.3425, L3300.0700, L803.2200, L500.4050, L3000.0375, L3410.2400, L800.1280, L503.5510, L3300.1200, L3300.0100, L3400.0700 ####[facility] [address] [place], [address] Haptoglobinon 08-27-2024 HAPTOGLOBIN 101 mg/dL Normal 32-363 [facility] Comment on above: Order Comment: Test( s) 781721-Zwoeia, Serum or Plasmawas developed and its performance characteristicsdetermined by [facility]. It has not been cleared or approvedby the Food and Drug Administration. Result Comment: Perf ormed at: [address] [id number] Apron Trimmer: Cesar Bruno PhD, Phone: [phone] Performed at: [address] [id number] Apron Trimmer: Lucrecia Meza MD, Phone: [phone] Performed By: #### L 3410.9998, L3100.5440, L3200.1100, L3100.1850, L504.2610, L3200.0500, L300.4310, L3100.6900, L300.3900, L501.9985, L3100.3425, L3300.0700, L803.2200, L500.4050, L3000.0375, L3410.2400, L800.1280, L503.5510, L3300.1200, L3300.0100, L3400.0700 ####[facility] [address] [place], [place], [address] Hepatitis Panel Acuteon 04-0 COMMENT Comment Normal . [facility] Comment on above: Order Comment: Test( s) 996240-Jlwnma, Serum or Plasmawas developed and its performance characteristicsdetermined by [facility]. It has not been cleared or approvedby the Food and Drug Administration. Result Comment: Not infected with HCV unless early or acute infection is suspected (which may be delayed in an immunocompromised individual), or other evidence exists to indicate HCV infection. Performed By: #### L 3410.9998, L3100.5440, L3200.1100, L3100.1850, L504.2610, L3200.0500, L300.4310, L3100.6900, L300.3900, L501.9985, L3100.3425, L3300.0700, L803.2200, L500.4050, L3000.0375, L3410.2400, L800.1280, L503.5510, L3300.1200, L3300.0100, L3400.0700 ####[facility] [address] [facility]. [place], [place], [id number] HEP B CORE,IgM Negative Normal Negative [facility] Comment on above: Order Comment: Test( s) 495912-Wyiafc, Serum or Plasmawas developed and its performance characteristicsdetermined by [facility]. It has not been cleared or approvedby the Food and Drug Administration. Performed By: #### L 3410.9998, L3100.5440, L3200.1100, L3100.1850, L504.2610, L3200.0500, L300.4310, L3100.6900, L300.3900, L501.9985, L3100.3425, L3300.0700, L803.2200, L500.4050, L3000.0375, L3410.2400, L800.1280, L503.5510, L3300.1200, L3300.0100, L3400.0700 ####[facility] [address] [facility] [place], [address] HEP B SURF AG Negative Normal Negative [facility] Comment on above: Order Comment: Test( s) 493571-Mntvzi, Serum or Plasmawas developed and its performance characteristicsdetermined by [facility]. It has not been cleared or approvedby the Food and Drug Administration. Performed By: #### L 3410.9998, L3100.5440, L3200.1100, L3100.1850, L504.2610, L3200.0500, L300.4310, L3100.6900, L300.3900, L501.9985, L3100.3425, L3300.0700, L803.2200, L500.4050, L3000.0375, L3410.2400, L800.1280, L503.5510, L3300.1200, L3300.0100, L3400.0700 ####[facility] [address] [facility] [place], [address] HEP C VIRUS AB Non-Reactive Normal Non Reactive [facility] Comment on above: Order Comment: Test( s) 484553-Babqdd, Serum or Plasmawas developed and its performance characteristicsdetermined by [facility]. It has not been cleared or approvedby the Food and Drug Administration. Performed By: #### L 3410.9998, L3100.5440, L3200.1100, L3100.1850, L504.2610, L3200.0500, L300.4310, L3100.6900, L300.3900, L501.9985, L3100.3425, L3300.0700, L803.2200, L500.4050, L3000.0375, L3410.2400, L800.1280, L503.5510, L3300.1200, L3300.0100, L3400.0700 ####[facility] [address] [place], [address] HEPATITIS A-IgM Negative Normal Negative [facility] Comment on above: Order Comment: Test( s) 027589-Yusakg, Serum or Plasmawas developed and its performance characteristicsdetermined by [facility]. It has not been cleared or approvedby the Food and Drug Administration. Result Comment: A ne gative anti-HAV IgM result suggests no recent or current HAV infection. Performed By: #### L 3410.9998, L3100.5440, L3200.1100, L3100.1850, L504.2610, L3200.0500, L300.4310, L3100.6900, L300.3900, L501.9985, L3100.3425, L3300.0700, L803.2200, L500.4050, L3000.0375, L3410.2400, L800.1280, L503.5510, L3300.1200, L3300.0100, L3400.0700 ####[facility] [address] [place], [address] ARIANNA + Protein Elect, Serumon 08-27-2024 Albumin [Mass/Vol] 3.7 g/dL Normal 2.9-4.4 [facility] Comment on above: Order Comment: Test( s) 985387-Pzobjf, Serum or Plasmawas developed and its performance characteristicsdetermined by [facility]. It has not been cleared or approvedby the Food and Drug Administration.[id number] Performed By: #### L 3410.9998, L3100.5440, L3200.1100, L3100.1850, L504.2610, L3200.0500, L300.4310, L3100.6900, L300.3900, L501.9985, L3100.3425, L3300.0700, L803.2200, L500.4050, L3000.0375, L3410.2400, L800.1280, L503.5510, L3300.1200, L3300.0100, L3400.0700 ####[facility] [address] [facility] [place], [address] Albumin/Globulin [Mass ratio] 1.0 {ratio} Normal 0.7-1.7 [facility] Comment on above: Order Comment: Test( s) 256616-Oosnwx, Serum or Plasmawas developed and its performance characteristicsdetermined by [facility]. It has not been cleared or approvedby the Food and Drug Administration.[id number] Performed By: #### L 3410.9998, L3100.5440, L3200.1100, L3100.1850, L504.2610, L3200.0500, L300.4310, L3100.6900, L300.3900, L501.9985, L3100.3425, L3300.0700, L803.2200, L500.4050, L3000.0375, L3410.2400, L800.1280, L503.5510, L3300.1200, L3300.0100, L3400.0700 ####[facility] [address] [facility] [place], [address] TOCPX-5-QWKX 0.2 g/dL Normal 0.0-0.4 [facility] Comment on above: Order Comment: Test( s) 046302-Alqxtl, Serum or Plasmawas developed and its performance characteristicsdetermined by [facility]. It has not been cleared or approvedby the Food and Drug Administration.[id number] Performed By: #### L 3410.9998, L3100.5440, L3200.1100, L3100.1850, L504.2610, L3200.0500, L300.4310, L3100.6900, L300.3900, L501.9985, L3100.3425, L3300.0700, L803.2200, L500.4050, L3000.0375, L3410.2400, L800.1280, L503.5510, L3300.1200, L3300.0100, L3400.0700 ####[facility] [address] [facility] [place], [address] GDHMY-7-BKJG 0.8 g/dL Normal 0.4-1.0 [facility] Comment on above: Order Comment: Test( s) 213315-Vhmmtg, Serum or Plasmawas developed and its performance characteristicsdetermined by [facility]. It has not been cleared or approvedby the Food and Drug Administration.[id number] Performed By: #### L 3410.9998, L3100.5440, L3200.1100, L3100.1850, L504.2610, L3200.0500, L300.4310, L3100.6900, L300.3900, L501.9985, L3100.3425, L3300.0700, L803.2200, L500.4050, L3000.0375, L3410.2400, L800.1280, L503.5510, L3300.1200, L3300.0100, L3400.0700 ####[facility] [address] [facility] [place], [address] BETA GLOBULIN 1.1 g/dL Normal 0.7-1.3 [facility] Comment on above: Order Comment: Test( s) 155769-Amuqfv, Serum or Plasmawas developed and its performance characteristicsdetermined by [facility]. It has not been cleared or approvedby the Food and Drug Administration.[id number] Performed By: #### L 3410.9998, L3100.5440, L3200.1100, L3100.1850, L504.2610, L3200.0500, L300.4310, L3100.6900, L300.3900, L501.9985, L3100.3425, L3300.0700, L803.2200, L500.4050, L3000.0375, L3410.2400, L800.1280, L503.5510, L3300.1200, L3300.0100, L3400.0700 ####[facility] [address] [facility] [place], [address] GAMMA GLOBULIN 1.6 g/dL Normal 0.4-1.8 [facility] Comment on above: Order Comment: Test( s) 145260-Iaxwul, Serum or Plasmawas developed and its performance characteristicsdetermined by [facility]. It has not been cleared or approvedby the Food and Drug Administration.[id number] Performed By: #### L 3410.9998, L3100.5440, L3200.1100, L3100.1850, L504.2610, L3200.0500, L300.4310, L3100.6900, L300.3900, L501.9985, L3100.3425, L3300.0700, L803.2200, L500.4050, L3000.0375, L3410.2400, L800.1280, L503.5510, L3300.1200, L3300.0100, L3400.0700 ####[facility] [address] [facility] [place], [address] Globulin (S) [Mass/Vol] 3.8 g/dL Normal 2.2-3.9 [facility] Comment on above: Order Comment: Test( s) 621989-Loonyc, Serum or Plasmawas developed and its performance characteristicsdetermined by [facility]. It has not been cleared or approvedby the Food and Drug Administration.[id number] Performed By: #### L 3410.9998, L3100.5440, L3200.1100, L3100.1850, L504.2610, L3200.0500, L300.4310, L3100.6900, L300.3900, L501.9985, L3100.3425, L3300.0700, L803.2200, L500.4050, L3000.0375, L3410.2400, L800.1280, L503.5510, L3300.1200, L3300.0100, L3400.0700 ####[facility] [address] [place], [address] ARIANNA RESULT,S Comment Abnormal . [facility] Comment on above: Order Comment: Test( s) 483841-Ydlaoj, Serum or Plasmawas developed and its performance characteristicsdetermined by [facility]. It has not been cleared or approvedby the Food and Drug Administration.[id number] Result Comment: Immu nofixation shows IgM monoclonal protein with kappa light chain specificity. Performed By: #### L 3410.9998, L3100.5440, L3200.1100, L3100.1850, L504.2610, L3200.0500, L300.4310, L3100.6900, L300.3900, L501.9985, L3100.3425, L3300.0700, L803.2200, L500.4050, L3000.0375, L3410.2400, L800.1280, L503.5510, L3300.1200, L3300.0100, L3400.0700 ####[facility] [address] [place], [address] IMMUNOGLOB A QN 283 mg/dL Normal 61-437 [facility] Comment on above: Order Comment: Test( s) 920806-Sicnbv, Serum or Plasmawas developed and its performance characteristicsdetermined by [facility]. It has not been cleared or approvedby the Food and Drug Administration.[id number] Performed By: #### L 3410.9998, L3100.5440, L3200.1100, L3100.1850, L504.2610, L3200.0500, L300.4310, L3100.6900, L300.3900, L501.9985, L3100.3425, L3300.0700, L803.2200, L500.4050, L3000.0375, L3410.2400, L800.1280, L503.5510, L3300.1200, L3300.0100, L3400.0700 ####[facility] [address] [facility] [address] [place], [place], [id number] IMMUNOGLOB M QN 641 mg/dL High 20-172 [facility] Comment on above: Order Comment: Test( s) 012360-Ziytnv, Serum or Plasmawas developed and its performance characteristicsdetermined by [facility]. It has not been cleared or approvedby the Food and Drug Administration.[id number] Performed By: #### L 3410.9998, L3100.5440, L3200.1100, L3100.1850, L504.2610, L3200.0500, L300.4310, L3100.6900, L300.3900, L501.9985, L3100.3425, L3300.0700, L803.2200, L500.4050, L3000.0375, L3410.2400, L800.1280, L503.5510, L3300.1200, L3300.0100, L3400.0700 ####[facility] [address] [facility] [address] [place], [place], [id number] M-Ishan 0.5 g/dL Abnormal Not Observed [facility] Comment on above: Order Comment: Test( s) 858842-Qnekao, Serum or Plasmawas developed and its performance characteristicsdetermined by [facility]. It has not been cleared or approvedby the Food and Drug Administration.[id number] Performed By: #### L 3410.9998, L3100.5440, L3200.1100, L3100.1850, L504.2610, L3200.0500, L300.4310, L3100.6900, L300.3900, L501.9985, L3100.3425, L3300.0700, L803.2200, L500.4050, L3000.0375, L3410.2400, L800.1280, L503.5510, L3300.1200, L3300.0100, L3400.0700 ####[facility] [address] [facility]. [place], [place], [id number] NOTE: Comment Normal . [facility] Comment on above: Order Comment: Test( s) 409028-Lkcfzv, Serum or Plasmawas developed and its performance characteristicsdetermined by [facility]. It has not been cleared or approvedby the Food and Drug Administration.[id number] Result Comment: Prot ein electrophoresis scan will follow via computer, mail, or [employer] delivery. Performed By: #### L 3410.9998, L3100.5440, L3200.1100, L3100.1850, L504.2610, L3200.0500, L300.4310, L3100.6900, L300.3900, L501.9985, L3100.3425, L3300.0700, L803.2200, L500.4050, L3000.0375, L3410.2400, L800.1280, L503.5510, L3300.1200, L3300.0100, L3400.0700 ####[facility] [address] [facility]. [place], [place], [id number] Protein [Mass/Vol] 7.5 g/dL Normal 6.0-8.5 [facility] Comment on above: Order Comment: Test( s) 576698-Ewivmf, Serum or Plasmawas developed and its performance characteristicsdetermined by [facility]. It has not been cleared or approvedby the Food and Drug Administration.[id number] Performed By: #### L 3410.9998, L3100.5440, L3200.1100, L3100.1850, L504.2610, L3200.0500, L300.4310, L3100.6900, L300.3900, L501.9985, L3100.3425, L3300.0700, L803.2200, L500.4050, L3000.0375, L3410.2400, L800.1280, L503.5510, L3300.1200, L3300.0100, L3400.0700 ####[facility] [address] [facility]. [place], [place], [id number] IgG Subclasseson 08-27-2024 IgG, SUBCLASS 1 568 mg/dL Normal 248-810 [facility] Comment on above: Order Comment: Test( s) 836497-Xdhdjv, Serum or Plasmawas developed and its performance characteristicsdetermined by [facility]. It has not been cleared or approvedby the Food and Drug Administration. Performed By: #### L 3410.9998, L3100.5440, L3200.1100, L3100.1850, L504.2610, L3200.0500, L300.4310, L3100.6900, L300.3900, L501.9985, L3100.3425, L3300.0700, L803.2200, L500.4050, L3000.0375, L3410.2400, L800.1280, L503.5510, L3300.1200, L3300.0100, L3400.0700 ####[facility] [address] [facility]. [place], [place], [id number] IgG, SUBCLASS 2 197 mg/dL Normal 130-555 [facility] Comment on above: Order Comment: Test( s) 157424-Nnbfly, Serum or Plasmawas developed and its performance characteristicsdetermined by [facility]. It has not been cleared or approvedby the Food and Drug Administration. Performed By: #### L 3410.9998, L3100.5440, L3200.1100, L3100.1850, L504.2610, L3200.0500, L300.4310, L3100.6900, L300.3900, L501.9985, L3100.3425, L3300.0700, L803.2200, L500.4050, L3000.0375, L3410.2400, L800.1280, L503.5510, L3300.1200, L3300.0100, L3400.0700 ####[facility] [address] [facility] [place], [address] IgG, SUBCLASS 3 32 mg/dL Normal 15-102 [facility] Comment on above: Order Comment: Test( s) 273126-Bikryu, Serum or Plasmawas developed and its performance characteristicsdetermined by [facility]. It has not been cleared or approvedby the Food and Drug Administration. Performed By: #### L 3410.9998, L3100.5440, L3200.1100, L3100.1850, L504.2610, L3200.0500, L300.4310, L3100.6900, L300.3900, L501.9985, L3100.3425, L3300.0700, L803.2200, L500.4050, L3000.0375, L3410.2400, L800.1280, L503.5510, L3300.1200, L3300.0100, L3400.0700 ####[facility] [address] [facility]. [place], [place], [id number] IgG, SUBCLASS 4 70 mg/dL Normal 2-96 [facility] Comment on above: Order Comment: Test( s) [id number]-[id number], Serum or Plasmawas developed and its performance characteristicsdetermined by [facility]. It has not been cleared or approvedby the Food and Drug Administration. Performed By: #### L 3410.9998, L3100.5440, L3200.1100, L3100.1850, L504.2610, L3200.0500, L300.4310, L3100.6900, L300.3900, L501.9985, L3100.3425, L3300.0700, L803.2200, L500.4050, L3000.0375, L3410.2400, L800.1280, L503.5510, L3300.1200, L3300.0100, L3400.0700 ####[facility] [address] [place], [place], [address] IGG,QUANT 1055 mg/dL Normal 603-1613 [facility] Comment on above: Order Comment: Test( s) 348689-Ittlre, Serum or Plasmawas developed and its performance characteristicsdetermined by [facility]. It has not been cleared or approvedby the Food and Drug Administration. Performed By: #### L 3410.9998, L3100.5440, L3200.1100, L3100.1850, L504.2610, L3200.0500, L300.4310, L3100.6900, L300.3900, L501.9985, L3100.3425, L3300.0700, L803.2200, L500.4050, L3000.0375, L3410.2400, L800.1280, L503.5510, L3300.1200, L3300.0100, L3400.0700 ####[facility] [address] [place], [place], [address] Immunoglobulins G/A/M/Wisam IMMUNOGLOB E QN 33 IU/mL Normal 6-495 [facility] Comment on above: Order Comment: Test( s) 951686-Ozvxgo, Serum or Plasmawas developed and its performance characteristicsdetermined by [facility]. It has not been cleared or approvedby the Food and Drug Administration.[id number] Performed By: #### L 3410.9998, L3100.5440, L3200.1100, L3100.1850, L504.2610, L3200.0500, L300.4310, L3100.6900, L300.3900, L501.9985, L3100.3425, L3300.0700, L803.2200, L500.4050, L3000.0375, L3410.2400, L800.1280, L503.5510, L3300.1200, L3300.0100, L3400.0700 ####[facility] [address] [place], [address] [facility] Normal . [facility] Comment on above: Order Comment: 87254 1 DNA PROFILE ANTITRYPSIN LAV WB Result Comment: Test Ordered: 724122 Dzklx-4-Vhtrnlgeeld Deficiency AAT, DNA Analysis Comment TG Reference Range: . Result: c.1096 G>A (p.Udp115Coq), Z allele - Not detected c.863 A>T (p.Lgo041Puc), S allele - Not detected Not associated with increased risk of developing clinically relevant symptoms of alpha-1 antitrypsin deficiency. See Additional Clinical Information and Comments. Additional Information: Comment TG Reference Range: . Additional Clinical Information: Alpha-1 antitrypsin deficiency is an autosomal recessive metabolic disorder with variable severity and age at onset. Signs and symptoms may include increased risk for chronic obstructive lung disease that typically manifests after age 30, liver disease, and liver cancer. Liver disease can be present in infancy as cholestasis (jaundice) or in adulthood as cirrhosis and fibrosis. Lung and liver disease may be accelerated by environmental exposures such as smoking and excessive alcohol use. Established treatments for COPD and emphysema are used to treat lung disease; lung and/or liver transplantation may be an option for those with with severe disease. Intravenous augmentation therapy may be available for patients who meet criteria. Comments: The ZZ and SZ genotypes account for more than 95% of individuals with severe alpha-1 antitrypsin deficiency. To rule out other variants, further testing of symptomatic individuals heterozygous for one variant (S or Z) or with negative results may include phenotyping (PI typing), AAT level testing, and/or expanded genotyping. Genetic counseling is recommended to discuss the potential clinical implications of positive results, as well as recommendations for testing family members. Genetic Coordinators are available for health care providers to discuss results at [phone] Test Details: Two variants analyzed: c.1096 G>A (p.Crg537Puq), commonly referred to as the Z allele or PI*Z c.863 A>T (p.Ocl055Tyh), commonly referred to as the S allele or PI*S Methods/Limitations: DNA analysis of the S and Z alleles in the SERPINA1 gene (NM_[id number]) was performed by multiplex allele-specific PCR amplification followed by gel electrophoresis. Results must be combined with clinical information for the most accurate interpretation. Molecular-based testing is highly accurate, but as in any laboratory test, rare diagnostic errors may occur. False positive or false negative results may occur for reasons that include genetic variants, blood transfusions, bone marrow transplantation, somatic or tissue-specific mosaicism, mislabeled samples, or erroneous representation of family relationships. This test was developed and its performance characteristics determined by [facility]. It has not been cleared or approved by the Food and Drug Administration. References: Miranda RA, Angelo G, Nereyda ML, Frankie M, Ra CE, K, Estevan DK, Carroll SL, Jose JM, Lemuel NICOLE, Danielle C, Kunal J. The Diagnosis and Management of Alpha- 1 Antitrypsin Deficiency in the Adult. Chronic Obstr Pulm Dis. 2016 Oct 28;3(3):668-682. doi: 10.60783/jcopdf.3.3.0182. PMID: 04496848; PMCID: IWC2079714. Lemuel NICOLE, Dawson V, Diogenes DODD. Alpha-1 Antitrypsin Deficiency. 2005Mar 20 [Updated 2019October 12]. In: Ricky MP, Leland HH, Tracy RA, et al., editors. Danae(R) [Internet]. [place] ([place]): [facility]; 5671-8709. Available from: https://www.ncbi.nlm.nih.gov/books/DUM5894/ Electronically Signed by: Marco Reference Range: . Technical Component performed at [facility] Professional Component performed by: [employer] Judy Tilley, Ph.D., [facility] Director, Molecular Genetics [address] [place] [address] Performed at: - [facility] [address] [place], [place] [id number] Apron Trimmer: Elissa Caballero [facility], Phone: [phone] Performed at: [address] [id number] Apron Trimmer: Cesar Bruno PhD, Phone: [phone] Performed By: #### L 3410.9998 #### [facility] [address] [place], [place], [id number] KINJAL Comprehensive Panelon ANTI-DNA (DS)AB 1 IU/mL Normal 0-9 [facility] Comment on above: Result Comment: Nega tive <5 Equivocal 5 - 9 Positive >9 Performed By: #### L 3410.9998, L3100.5440, L3200.1100, L3100.1850, L504.2610, L3200.0500, L300.4310, L3100.6900, L300.3900, L501.9985, L3100.3425, L3300.0700, L803.2200, L500.4050, L3000.0375, L3410.2400, L800.1280, L503.5510, L3300.1200, L3300.0100, L3400.0700 #### [facility] [address] [place], [place], [id number] ANTISCLERODERM <0.2 Normal 0.0-0.9 [facility] Comment on above: Performed By: #### L 3410.9998, L3100.5440, L3200.1100, L3100.1850, L504.2610, L3200.0500, L300.4310, L3100.6900, L300.3900, L501.9985, L3100.3425, L3300.0700, L803.2200, L500.4050, L3000.0375, L3410.2400, L800.1280, L503.5510, L3300.1200, L3300.0100, L3400.0700 #### [facility] [address] [place], [address] Anti-Mitochondrial ABon - ANTIMITOCHON AB 70.4 Units Abnormal 0.0-20.0 [facility] Comment on above: Result Comment: Nega tive 0.0 - 20.0 Equivocal 20.1 - 24.9 Positive >24.9 Mitochondrial (M2) Antibodies are found in 90-96% of patients with primary biliary cirrhosis. Performed at: [address], [place], [place] [id number] Apron Trimmer: Cesar Bruno PhD, Phone: [phone] Performed By: #### L 3410.9998, L3100.5440, L3200.1100, L3100.1850, L504.2610, L3200.0500, L300.4310, L3100.6900, L300.3900, L501.9985, L3100.3425, L3300.0700, L803.2200, L500.4050, L3000.0375, L3410.2400, L800.1280, L503.5510, L3300.1200, L3300.0100, L3400.0700 ####[facility] [address] [place], [place], [phone] Activated partial thrombopla stin time (aPTT) in platelet poor plasma by coagulation aOrdered By: Werner Pérez on 08-17-2024 aPTT Coag (PPP) [Time] 30.2 s 24.1-36.2 [facility] Albumin Elph [Mass/Vol]Order ed By: Werner Pérez on 08-17-2024 Albumin [Mass/Vol] 3.7 g/dL 2.9-4.4 [facility] Ammoniaon 08-17-2024 Ammonia (P) [Moles/Vol] 29.2 umol/L Normal 16-60 [facility] Comment on above: Performed By: #### L 3410.9998, L3100.5440, L3200.1100, L3100.1850, L504.2610, L3200.0500, L300.4310, L3100.6900, L300.3900, L501.9985, L3100.3425, L3300.0700, L803.2200, L500.4050, L3000.0375, L3410.2400, L800.1280, L503.5510, L3300.1200, L3300.0100, L3400.0700 ####[facility] [address] [place], [address] Anion gap in Serum or Plasma Ordered By: Werner Pérez on 08-17-2024 Anion gap [Moles/Vol] 11 mmol/L 5-15 [facility] BUN/creatinine ratioOrdered By: Werner Pérez on 08-17-2024 Urea nitrogen/Creatinine [Mass ratio] 9.6 mg/mg Low 10-20 [facility] Bilirubin, totalOrdered By: Werner Pérez on 08-17-2024 Bilirubin [Mass/Vol] 0.56 mg/dL 0.00-1.30 [facility] Carbon dioxide, total [Moles /volume] in Central venous bloodOrdered By: Werner Pérez on 08-17-2024 CO2 [Moles/Vol] 25.5 mmol/L 21.0-32.0 [facility] Centromere B antibody assayO rdered By: Werner Pérez on 08-17-2024 Centromere B Antibody <0.2 AI 0.0-0.9 [facility] Comment on above: Previous reported re sult: TNP AIEdited by: PEGGY on 08/19/24:1508 AMENDED REPORT 08/19/24 1508 ANTI-CENT B previously reported as: Test not performed Chloride assayOrdered By: Ra franco Pérez on 08-17-2024 Chloride [Moles/Vol] 105 mmol/L 98-108 [facility] Chromatin antibody assayOrde red By: Werner Pérez on 08-17-2024 Antichromatin Antibodies <0.2 AI 0.0-0.9 [facility] Comment on above: Previous reported re sult: TNP AIEdited by: PEGGY on 08/19/24:1508 AMENDED REPORT 08/19/24 1508 ANTICHROMATIN previously reported as: Test not performed Comprehensive Metabolic Prof ilon 08-17-2024 Albumin [Mass/Vol] 4.1 g/dL Normal 3.4-4.8 [facility] Comment on above: Order Comment: 23346 0 Performed By: #### L 3410.9998, L3100.5440, L3200.1100, L3100.1850, L504.2610, L3200.0500, L300.4310, L3100.6900, L300.3900, L501.9985, L3100.3425, L3300.0700, L803.2200, L500.4050, L3000.0375, L3410.2400, L800.1280, L503.5510, L3300.1200, L3300.0100, L3400.0700 ####[facility] [address] [place], [place], [phone] Albumin/Globulin [Mass ratio] 1.7 {ratio} Normal 0.9-2.4 [facility] Comment on above: Order Comment: 87626 0 Performed By: #### L 3410.9998, L3100.5440, L3200.1100, L3100.1850, L504.2610, L3200.0500, L300.4310, L3100.6900, L300.3900, L501.9985, L3100.3425, L3300.0700, L803.2200, L500.4050, L3000.0375, L3410.2400, L800.1280, L503.5510, L3300.1200, L3300.0100, L3400.0700 ####[facility] [address] [place], [address] ALK PHOS 60 U/L Normal 40-129 [facility] Comment on above: Order Comment: 99459 0 Performed By: #### L 3410.9998, L3100.5440, L3200.1100, L3100.1850, L504.2610, L3200.0500, L300.4310, L3100.6900, L300.3900, L501.9985, L3100.3425, L3300.0700, L803.2200, L500.4050, L3000.0375, L3410.2400, L800.1280, L503.5510, L3300.1200, L3300.0100, L3400.0700 ####[facility] [address] [place], [address] ALT [Catalytic activity/Vol] 28 U/L Normal <=46 [facility] Comment on above: Order Comment: 89663 0 Performed By: #### L 3410.9998, L3100.5440, L3200.1100, L3100.1850, L504.2610, L3200.0500, L300.4310, L3100.6900, L300.3900, L501.9985, L3100.3425, L3300.0700, L803.2200, L500.4050, L3000.0375, L3410.2400, L800.1280, L503.5510, L3300.1200, L3300.0100, L3400.0700 ####[facility] [address] [place], [address] AST [Catalytic activity/Vol] 34 U/L Normal <=37 [facility] Comment on above: Order Comment: 07047 0 Performed By: #### L 3410.9998, L3100.5440, L3200.1100, L3100.1850, L504.2610, L3200.0500, L300.4310, L3100.6900, L300.3900, L501.9985, L3100.3425, L3300.0700, L803.2200, L500.4050, L3000.0375, L3410.2400, L800.1280, L503.5510, L3300.1200, L3300.0100, L3400.0700 ####[facility] [address] [place], [address] Bilirubin [Mass/Vol] 0.56 mg/dL Normal 0.00-1.30 [facility] Comment on above: Order Comment: 96556 0 Performed By: #### L 3410.9998, L3100.5440, L3200.1100, L3100.1850, L504.2610, L3200.0500, L300.4310, L3100.6900, L300.3900, L501.9985, L3100.3425, L3300.0700, L803.2200, L500.4050, L3000.0375, L3410.2400, L800.1280, L503.5510, L3300.1200, L3300.0100, L3400.0700 ####[facility] [address] [place], [place], [phone] BUN/CRE 9.6 RATIO Low 10-20 [facility] Comment on above: Order Comment: 59347 0 Performed By: #### L 3410.9998, L3100.5440, L3200.1100, L3100.1850, L504.2610, L3200.0500, L300.4310, L3100.6900, L300.3900, L501.9985, L3100.3425, L3300.0700, L803.2200, L500.4050, L3000.0375, L3410.2400, L800.1280, L503.5510, L3300.1200, L3300.0100, L3400.0700 ####[facility] [address] [facility] [place], [place], [address] Calcium [Mass/Vol] 9.2 mg/dL Normal 7.6-11.0 [facility] Comment on above: Order Comment: 08690 0 Performed By: #### L 3410.9998, L3100.5440, L3200.1100, L3100.1850, L504.2610, L3200.0500, L300.4310, L3100.6900, L300.3900, L501.9985, L3100.3425, L3300.0700, L803.2200, L500.4050, L3000.0375, L3410.2400, L800.1280, L503.5510, L3300.1200, L3300.0100, L3400.0700 ####[facility] [address] [facility] [place], [address] Chloride [Moles/Vol] 105 mmol/L Normal 98-108 [facility] Comment on above: Order Comment: 38574 0 Performed By: #### L 3410.9998, L3100.5440, L3200.1100, L3100.1850, L504.2610, L3200.0500, L300.4310, L3100.6900, L300.3900, L501.9985, L3100.3425, L3300.0700, L803.2200, L500.4050, L3000.0375, L3410.2400, L800.1280, L503.5510, L3300.1200, L3300.0100, L3400.0700 ####[facility] [address] [place], [address] CO2 [Moles/Vol] 25.5 mmol/L Normal 21.0-32.0 [facility] Comment on above: Order Comment: 29869 0 Performed By: #### L 3410.9998, L3100.5440, L3200.1100, L3100.1850, L504.2610, L3200.0500, L300.4310, L3100.6900, L300.3900, L501.9985, L3100.3425, L3300.0700, L803.2200, L500.4050, L3000.0375, L3410.2400, L800.1280, L503.5510, L3300.1200, L3300.0100, L3400.0700 ####[facility] [address] [place], [place], [address] Creatinine [Mass/Vol] 1.01 mg/dL Normal 0.70-1.20 [facility] Comment on above: Order Comment: 07501 0 Performed By: #### L 3410.9998, L3100.5440, L3200.1100, L3100.1850, L504.2610, L3200.0500, L300.4310, L3100.6900, L300.3900, L501.9985, L3100.3425, L3300.0700, L803.2200, L500.4050, L3000.0375, L3410.2400, L800.1280, L503.5510, L3300.1200, L3300.0100, L3400.0700 ####[facility] [address] [place], [place], [id number] GAP 11 Normal 5-15 [facility] Comment on above: Order Comment: 61031 0 Performed By: #### L 3410.9998, L3100.5440, L3200.1100, L3100.1850, L504.2610, L3200.0500, L300.4310, L3100.6900, L300.3900, L501.9985, L3100.3425, L3300.0700, L803.2200, L500.4050, L3000.0375, L3410.2400, L800.1280, L503.5510, L3300.1200, L3300.0100, L3400.0700 ####[facility] [address] [facility]. [place], [place], [address] GFR/1.73 sq M.predicted among non-blacks MDRD (S/P/Bld) [Vol rate/Area] 84 mL/min/{1.73_m2} Normal >60 [facility] Comment on above: Order Comment: 32144 0 Result Comment: mL/m in/1.73m2 CKD-EPI Creatinine Equation (2020) Performed By: #### L 3410.9998, L3100.5440, L3200.1100, L3100.1850, L504.2610, L3200.0500, L300.4310, L3100.6900, L300.3900, L501.9985, L3100.3425, L3300.0700, L803.2200, L500.4050, L3000.0375, L3410.2400, L800.1280, L503.5510, L3300.1200, L3300.0100, L3400.0700 ####[facility] [address] [place], [place], [phone] Globulin (S) [Mass/Vol] 2.4 g/dL Normal 2.2-4.2 [facility] Comment on above: Order Comment: 50343 0 Performed By: #### L 3410.9998, L3100.5440, L3200.1100, L3100.1850, L504.2610, L3200.0500, L300.4310, L3100.6900, L300.3900, L501.9985, L3100.3425, L3300.0700, L803.2200, L500.4050, L3000.0375, L3410.2400, L800.1280, L503.5510, L3300.1200, L3300.0100, L3400.0700 ####[facility] [address] [place], [place], [address] Glucose [Mass/Vol] 87 mg/dL Normal 70-99 [facility] Comment on above: Order Comment: 09866 0 Performed By: #### L 3410.9998, L3100.5440, L3200.1100, L3100.1850, L504.2610, L3200.0500, L300.4310, L3100.6900, L300.3900, L501.9985, L3100.3425, L3300.0700, L803.2200, L500.4050, L3000.0375, L3410.2400, L800.1280, L503.5510, L3300.1200, L3300.0100, L3400.0700 ####[facility] [address] [place], [address] Potassium [Moles/Vol] 4.4 mmol/L Normal 3.3-5.1 [facility] Comment on above: Order Comment: 19087 0 Performed By: #### L 3410.9998, L3100.5440, L3200.1100, L3100.1850, L504.2610, L3200.0500, L300.4310, L3100.6900, L300.3900, L501.9985, L3100.3425, L3300.0700, L803.2200, L500.4050, L3000.0375, L3410.2400, L800.1280, L503.5510, L3300.1200, L3300.0100, L3400.0700 ####[facility] [address] [place], [address] Sodium [Moles/Vol] 142 mmol/L Normal 133-145 [facility] Comment on above: Order Comment: 97316 0 Performed By: #### L 3410.9998, L3100.5440, L3200.1100, L3100.1850, L504.2610, L3200.0500, L300.4310, L3100.6900, L300.3900, L501.9985, L3100.3425, L3300.0700, L803.2200, L500.4050, L3000.0375, L3410.2400, L800.1280, L503.5510, L3300.1200, L3300.0100, L3400.0700 ####[facility] [address] [place], [address] T PROT 6.4 g/dL Normal 5.9-8.4 [facility] Comment on above: Order Comment: 34681 0 Performed By: #### L 3410.9998, L3100.5440, L3200.1100, L3100.1850, L504.2610, L3200.0500, L300.4310, L3100.6900, L300.3900, L501.9985, L3100.3425, L3300.0700, L803.2200, L500.4050, L3000.0375, L3410.2400, L800.1280, L503.5510, L3300.1200, L3300.0100, L3400.0700 ####[facility] [address] [facility]. [place], [place], [address] Urea nitrogen [Mass/Vol] 10 mg/dL Normal 4-19 [facility] Comment on above: Order Comment: 39768 0 Performed By: #### L 3410.9998, L3100.5440, L3200.1100, L3100.1850, L504.2610, L3200.0500, L300.4310, L3100.6900, L300.3900, L501.9985, L3100.3425, L3300.0700, L803.2200, L500.4050, L3000.0375, L3410.2400, L800.1280, L503.5510, L3300.1200, L3300.0100, L3400.0700 ####[facility] [address] [place], [place], [id number] DNA double strand Ab Qn (S)O rdered By: Werner Pérez on 08-17-2024 Anti-Double Strand DNA Antibody 1 IU/mL 0-9 [facility] Comment on above: Negative <5 Equivoca l 5 - 9 Positive >9 GFR/1.73 sq M.predicted angel g non-blacks MDRD (S/P/Bld) [Vol rate/Area]Ordered By: Werner Pérez on 08-17-2024 Estimated GFR (MDRD) Non-Af Amer [address] >60 [facility] Comment on above: mL/min/1.73m2 CKD-EP I Creatinine Equation (2020) Gastroenterology Visit Repor ton 08-17-2024 Gastroenterology Visit Report [facility] [address] [place] [address] OFFICE VISIT Date of Service: 08/17/24 MR#: [id number] Acct: [id number] Name: ZAIDINATTY Ce Rep #: [id number] : 1960 Provider: Werner Pérez DO Age/Sex: 63/M Location: [facility] Status: Signed Intake Intake Visit Reasons: Gastroesophageal reflux disease (GERD) Allergies amoxicillin (From Augmentin) Allergy (Verified 08/04/24 14:42) Hives clavulanic acid (From Augmentin) Allergy (Verified 08/04/24 14:42) Hives midazolam (From Versed) Allergy (Verified 08/04/24 14:42) Other Medications ???Medication ???Instructions ???Recorded ???Confirmed ???Type acetaminophen 500 mg capsule 500 mg PO Q6H PRN 08/04/24 5 History gabapentin 100 mg capsule 100 mg PO BID 08/04/24 08/04/24 Hi story glimepiride 1 mg tablet 1 mg PO QDAY 08/04/24 08/04/24 His tory metformin 500 mg tablet 500 mg PO BID 08/04/24 08/04/24 Hi story pantoprazole 20 mg tablet,delayed 20 mg PO QDAY 08/04/24 08/04/24 H istory release pramipexole 0.5 mg tablet 0.5 mg PO QDAY 08/04/24 08/04/24 H istory citalopram 10 mg/5 mL oral solution 5 mg PO QDAY 08/17/24 08/17/24 History HPI HPI Details: NATTY ZAIDI, is a 63 M who presents to the office today for initial consult. *I established 3.26.25 pt reports that is apr 2022 he saw his pcp who did a physical exam and told pt he felt his liver was enflamed. Shortly after he was diagnosed with DMII. Pt reports he has had scopes and imaging that show enlarged liver and spleen. He reports that he was previously seeing the ASSOCIATE PASTOR that works with Dr Lloyd and was told he needs to be on a list for a liver transplant. Pt is looking for some clarification and more information on his diagnoses. Pt reports that pantoprazole is helpful for his heartburn. Pt reports that he is seeing cooperative manager, Dr Reynoso, for his low platelet count. ROS Const Constitutional: No fatigue, fever(s) or weight change ENT ENT: No difficulty swallowing Gastro GI: Positive for heartburn; No abdominal pain, belching, bloating, change in bowel habits, change in stool character, coffee ground emesis, constipation, cramping, diarrhea, difficulty swallowing, feeling full early, excessive flatus, incontinent of stools, Vomiting blood/hematemesis, Blood in stool, loose stools, Black,tarry stools, nausea/dyspepsia, pain with swallowing, vomiting or other Musc Musculoskeletal: Positive for Arthritis, restless legs and leg pain at night; No joint pain Skin Skin: No yellowing of the eye or itchy eyes Neuro Neurology: Positive for restless legs Psych Psychiatric: No anxiety and No depression Endo Endocrine: No fatigue or weight change Aller/Imm Allergy/Immunologic: No itchy eyes Bro/Lymp Hematologic/Lymphatic: No easy bleeding or easy bruising Exam Const General: cooperative, healthy appearing and comfortable Nutritional Appearance: average body habitus Orientation: alert, awake and oriented x3 HENMT Head: normal to inspection Ears: hearing grossly normal bilaterally Nose: external nose normal Face and sinus: normal facial exam Mouth: oral mucosae normal Eyes General: appearance normal, both eyes and all related structures Sclera: sclerae normal Chest Chest palpation inspection: normal inspection of the chest Resp Effort Inspection: normal respiratory effort Auscultation: Bilateral: Clear to Auscultation Cardio Rate: regular rate Rhythm: regular rhythm GI Inspection: normal to inspection Auscultation: normal bowel sounds Palpation: no hepatosplenomegaly Assessment and Plan Assessment and Plan (1) Gastroesophageal reflux disease: (2) Cirrhosis: Status: Acute Plan: This is a very pleasant 63-year-old gentleman with unfortunate recent diagnosis of cirrhosis complicated by hepatomegaly, splenomegaly without jaundice, ascites or encephalopathy. 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 He has been struggling with thrombocytopenia secondary to massive splenomegaly that has been managed by a cooperative manager. On his previous imaging there was no signs of liver lesions or any signs of thrombosis. It did see significant portal hypertension without any sign of gastric varices or gastroesophageal varices noted on his previous CT scan abdomen pelvis. He has never had a liver biopsy, CTA or MRI to screen for hepatocellular carcinoma. He has no family history of liver disease. He did previously have a BMI of 45 but he lost over 60 pounds and his BMI is currently down to 34. He has been very aggressive with his diet and exercise regimen. His exercise is partially limited due to severe arthritis of his right knee. Assessment/plan: -Cirrhosis-we will need to do MELD labs (more content not included)... Normal [facility] Glomerular filtration rate ( GFR) estimation/1.73 sq m using serum, plasma, or whole bOrdered By: Werner Pérez on 08-17-2024 GFR/1.73 sq M.predicted among non-blacks MDRD (S/P/Bld) [Vol rate/Area] 84 mL/min/{1.73_m2} >60 [facility] Comment on above: mL/min/1.73m2 CKD-EP I Creatinine Equation (2020) Hemoglobin A1con 08-17-2024 HbA1c (Bld) [Mass fraction] 5.8 % Normal <=5.6 [facility] Comment on above: Performed By: #### L 3410.9998, L3100.5440, L3200.1100, L3100.1850, L504.2610, L3200.0500, L300.4310, L3100.6900, L300.3900, L501.9985, L3100.3425, L3300.0700, L803.2200, L500.4050, L3000.0375, L3410.2400, L800.1280, L503.5510, L3300.1200, L3300.0100, L3400.0700 ####[facility] [id number] [place], [place], [id number] Hemoglobin A1c percentageOrd ered By: Werner Pérez on 08-17-2024 HbA1c (Bld) [Mass fraction] 5.8 % >5.7 [facility] IgEOrdered By: Werner sibley on 08-17-2024 IgE 33 IU/mL 6-495 [facility] International normalized rat io (INR) calculationOrdered By: Werner Pérez on 08-17-2024 INR Coag (Bld) [Relative time] 1.0 {INR} [facility] Interpretation of serum or p lasma protein pattern by immunofixation (narrative resultOrdered By: Werner Pérez on 08-17-2024 Protein Fractions Immunofixation Cassius [Interp] 0.5 g/dL High Not Observed [facility] Georgiana-1 antibody assayOrdered B y: Werner Pérez on 08-17-2024 GEORGIANA-1 Antibody <0.2 AI 0.0-0.9 [facility] Comment on above: Previous reported re sult: TNP AIEdited by: INFCE on 08/19/24:1508 AMENDED REPORT 08/19/24 1508 ANTI-GEORGIANA previously reported as: Test not performed LDHon 08-17-2024 LDH 155 U/L Normal 87-241 [facility] Comment on above: Order Comment: [id number] Performed By: #### L 3410.9998, L3100.5440, L3200.1100, L3100.1850, L504.2610, L3200.0500, L300.4310, L3100.6900, L300.3900, L501.9985, L3100.3425, L3300.0700, L803.2200, L500.4050, L3000.0375, L3410.2400, L800.1280, L503.5510, L3300.1200, L3300.0100, L3400.0700 ####[facility] [id number] [place], [place], [address] Laboratory - Chemistry and C hemistry - challengeOrdered By: Werner Pérez on 08-17-2024 AST [Catalytic activity/Vol] 34 U/L <38 [facility] Lactate dehydrogenase (LDH) measurementOrdered By: Werner Pérez on 08-17-2024 LDH [Catalytic activity/Vol] 155 U/L 87-241 [facility] Mitochondria Ab Ql (S)Ordere d By: Werner Pérez on 08-17-2024 Anti-Mitochondrial Antibody 70.4 Units High 0.0-20.0 [facility] Comment on above: Negative 0.0 - 20.0 Equivocal 20.1 - 24.9 Positive >24.9Mitochondrial (M2) Antibodies are found in 90-96% ofpatients with primary biliary cirrhosis.Performed at: [address] [id number] Director: Cesar Bruno PhD, Phone: [phone] No Panel InformationOrdered By: Werner Pérez on 08-17-2024 Addendum Document Comment . [facility] Comment on above: Protein electrophore sis scan will follow via computer,mail, or [employer] delivery. Hepatitis C Antibody Comment Comment . [facility] Comment on above: Not infected with HC V unless early or acute infection issuspected (which may be delayed in an immunocompromisedindividual), or other evidence exists to indicate HCVinfection. Partial Thromboplast Timeon 08-17-2024 aPTT Coag (Bld) [Time] 30.2 s Normal 24.1-36.2 [facility] Comment on above: Performed By: #### L 3410.9998, L3100.5440, L3200.1100, L3100.1850, L504.2610, L3200.0500, L300.4310, L3100.6900, L300.3900, L501.9985, L3100.3425, L3300.0700, L803.2200, L500.4050, L3000.0375, L3410.2400, L800.1280, L503.5510, L3300.1200, L3300.0100, L3400.0700 ####[facility] [address] [place], [address] Potassium (Unsp spec) [Mass/ Vol]Ordered By: Werner Pérez on 08-17-2024 Potassium [Moles/Vol] 4.4 mmol/L 3.3-5.1 [facility] Potassium measurement (mass/ volume)Ordered By: Werner Pérez on 08-17-2024 Potassium (Unsp spec) [Mass/Vol] 4.4 mmol/L 3.3-5.1 [facility] Prothrombin Time w/INRon INR Coag (PPP) [Relative time] 1.0 {INR} Normal [facility] Comment on above: Performed By: #### L 3410.9998, L3100.5440, L3200.1100, L3100.1850, L504.2610, L3200.0500, L300.4310, L3100.6900, L300.3900, L501.9985, L3100.3425, L3300.0700, L803.2200, L500.4050, L3000.0375, L3410.2400, L800.1280, L503.5510, L3300.1200, L3300.0100, L3400.0700 ####[facility] [address] [place], [place], [phone] PT Coag (PPP) [Time] 13.6 s Normal 11.7-14.9 [facility] Comment on above: Performed By: #### L 3410.9998, L3100.5440, L3200.1100, L3100.1850, L504.2610, L3200.0500, L300.4310, L3100.6900, L300.3900, L501.9985, L3100.3425, L3300.0700, L803.2200, L500.4050, L3000.0375, L3410.2400, L800.1280, L503.5510, L3300.1200, L3300.0100, L3400.0700 ####[facility] [address] [place], [place], [phone] Prothrombin timeOrdered By: Werner Pérez on 08-17-2024 PT Coag (PPP) [Time] 13.6 s 11.7-14.9 [facility] CHANNELER RUNNER abOrdered By: Werner Watson iend on 08-17-2024 CHANNELER RUNNER Antibody <0.2 AI 0.0-0.9 [facility] Comment on above: Previous reported re sult: TNP AIEdited by: PEGGY on 08/19/24:1508 AMENDED REPORT 08/19/24 1508 CHANNELER RUNNER Ab previously reported as: Test not performed SCL-70 extractable nuclear A b Qn (S)Ordered By: Werner Pérez on 08-17-2024 Scl-70 (Scleroderma) Antibody <0.2 AI 0.0-0.9 [facility] SS-A IgG antibody assayOrder ed By: Werner Pérez on 08-17-2024 SS-A/Ro IgG Antibody < 0.2 AI 0.0-0.9 [facility] Comment on above: Previous reported re sult: TNP AIEdited by: PEGGY on 08/19/24:1508 AMENDED REPORT 08/19/24 1508 Anti-SS-A previously reported as: Test not performed SS-B IgG antibody assayOrder ed By: Werner Pérez on 08-17-2024 SS-B/La IgG Antibody < 0.2 AI 0.0-0.9 [facility] Comment on above: Previous reported re sult: TNP AIEdited by: PEGGY on 08/19/24:1508 AMENDED REPORT 08/19/24 1508 Anti-SS-B previously reported as: Test not performed Serum DNA double strand anti body assay (units/volume)Ordered By: Werner Pérez on 08-17-2024 DNA double strand Ab Qn (S) 1 [IU]/mL 0-9 [facility] Comment on above: Negative <5 Equivoca l 5 - 9 Positive >9 Serum IgG subclass 1 measure ment (mass/volume)Ordered By: Werner Pérez on 08-17-2024 IgG subclass 1 (S) [Mass/Vol] 568 mg/dL 248-810 [facility] Serum IgG subclass 2 measure ment (mass/volume)Ordered By: Werner Pérez on 08-17-2024 IgG subclass 2 (S) [Mass/Vol] 197 mg/dL 130-555 [facility] Serum IgG subclass 3 measure ment (mass/volume)Ordered By: Werner Pérez on 08-17-2024 IgG subclass 3 (S) [Mass/Vol] 32 mg/dL 15-102 [facility] Serum Scl-70 antibody assay (units/volume)Ordered By: Werner Pérez on 08-17-2024 SCL-70 extractable nuclear Ab Qn (S) <0.2 AI 0.0-0.9 [facility] Serum classic neutrophil cyt oplasmic antibody assay (units/volume)Ordered By: Werner Pérez on 08-17-2024 Neutrophil cytoplasmic Ab.classic Qn (S) <1:20 titer Neg:<1:20 [facility] Serum creatinine measurement (mass/volume)Ordered By: Werner Pérez on 08-17-2024 Creatinine [Mass/Vol] 1.01 mg/dL 0.70-1.20 [facility] Serum globulin measurementOr dered By: Werner Pérez on 08-17-2024 Globulin (S) [Mass/Vol] 2.4 g/dL 2.2-4.2 [facility] Serum globulin measurement ( mass/volume)Ordered By: Werner Pérez on 08-17-2024 Globulin (S) [Mass/Vol] 3.8 g/dL 2.2-3.9 [facility] Serum glucose measurement (m ass/volume)Ordered By: Werner Pérez on 08-17-2024 Glucose [Mass/Vol] 87 mg/dL 70-99 [facility] Serum mitochondria antibody detectionOrdered By: Werner Pérez on 08-17-2024 Mitochondria Ab Ql (S) 70.4 Units High 0.0-20.0 [facility] Comment on above: Negative 0.0 - 20.0 Equivocal 20.1 - 24.9 Positive >24.9Mitochondrial (M2) Antibodies are found in 90-96% ofpatients with primary biliary cirrhosis.Performed at: [place] [id number] Director: Cesar Bruno PhD, Phone: [phone] Serum or plasma IgA measurem ent (mass/volume)Ordered By: Werner Pérez on 08-17-2024 IgA [Mass/Vol] 283 mg/dL 61-437 [facility] Serum or plasma IgG measurem ent (mass/volume)Ordered By: Werner Pérez on 08-17-2024 IgG [Mass/Vol] 1055 mg/dL 603-1613 [facility] IgG [Mass/Vol] Not Reportable [facility] Serum or plasma actin IgG an tibody assay (units/volume)Ordered By: Werner Pérez on 08-17-2024 Actin IgG Qn 8 Units 0-19 [facility] Comment on above: Negative 0 - 19 Weak positive 20 - 30 Moderate to strong positive >30 Actin Antibodies are found in 52-85% of patients with autoimmune hepatitis or chronic active hepatitis and in 22% of patients with primary biliary cirrhosis. Serum or plasma alanine mays otransferase (ALT) measurementOrdered By: Werner Pérez on 08-17-2024 ALT [Catalytic activity/Vol] 28 U/L <47 [facility] Serum or plasma albumin madonna urement (mass/volume)Ordered By: Werner Pérez on 08-17-2024 Albumin [Mass/Vol] 4.1 g/dL 3.4-4.8 [facility] Serum or plasma albumin/glob ulin mass ratioOrdered By: Werner Pérez on 08-17-2024 Albumin/Globulin [Mass ratio] 1.7 {ratio} 0.9-2.4 [facility] Serum or plasma alkaline ross sphatase measurementOrdered By: Werner Pérez on 08-17-2024 ALP [Catalytic activity/Vol] 60 U/L 40-129 [facility] Serum or plasma alpha 1 glob ulin measurement by electrophoresis (mass/volume)Ordered By: Werner Pérez on 08-17-2024 Alpha 1 globulin Elph [Mass/Vol] 0.2 g/dL 0.0-0.4 [facility] Alpha 1 globulin Elph [Mass/Vol] 0.8 g/dL 0.4-1.0 [facility] Serum or plasma angiotensin converting enzyme measurement (enzymatic activity/volume)Ordered By: Werner Pérez on 08-17-2024 Angiotensin converting enzyme [Catalytic activity/Vol] 52 U/L 14-82 [facility] Serum or plasma beta globuli n measurement by electrophoresis (mass/volume)Ordered By: Werner Pérez on 08-17-2024 Beta globulin Elph [Mass/Vol] 1.1 g/dL 0.7-1.3 [facility] Serum or plasma calcium madonna urement (mass/volume)Ordered By: Werner Pérez on 08-17-2024 Calcium [Mass/Vol] 9.2 mg/dL 7.6-11.0 [facility] Serum or plasma gamma globul in measurement by electrophoresis (mass/volume)Ordered By: Werner Pérez on 08-17-2024 Gamma globulin Elph [Mass/Vol] 1.6 g/dL 0.4-1.8 [facility] Serum or plasma hepatitis B virus surface antigen detection by immunoassayOrdered By: Werner Pérez on 08-17-2024 HBV surface Ag IA Ql Negative Negative [facility] Serum or plasma immunoelectr ophoresis interpretation (nominal result)Ordered By: Werner Pérez on 08-17-2024 Interpretation IEP [Interp] Comment High . [facility] Comment on above: Immunofixation shows IgM monoclonal protein with kappalight chain specificity. Serum or plasma protein madonna urement (mass/volume)Ordered By: Werner Pérez on 08-17-2024 Protein [Mass/Vol] 7.5 g/dL 6.0-8.5 [facility] Serum or plasma urea nitroge n measurement (mass/volume)Ordered By: Werner Pérez on 08-17-2024 Urea nitrogen [Mass/Vol] 10 mg/dL 4-19 [facility] Serum perinuclear neutrophil cytoplasmic antibody titer by immunofluorescenceOrdered By: Werner Pérez on 08-17-2024 Neutrophil cytoplasmic Ab.perinuclear IF (S) [Titer] <1:20 titer Neg:<1:20 [facility] Comment on above: The presence of posi tive fluorescence exhibiting P-ANCA orC-ANCA patterns alone is not specific for the diagnosis ofWegener's Granulomatosis (WG) or microscopic polyangiitis.Decisions about treatment should not be based solely onANCA IFA results. The International ANCA Group Consensusrecommends follow up testing of positive sera with both KY-3 and MPO-ANCA enzyme immunoassays. As many as 5% serumsamples are positive only by EIA. Ref. AM J Clin Xezwie4467;111:507-513. Serum tissue transglutaminas e (tTG) IgA antibody assay (units/volume)Ordered By: Werner Pérez on 08-17-2024 tTG IgA Qn (S) 3 U/mL 0-3 [facility] Comment on above: Negative 0 - 3 Weak Positive 4 - 10 Positive >10 Tissue Transglutaminase (tTG) has been identified as the endomysial antigen. Studies have demonstr- ated that endomysial IgA antibodies have over 99% specificity for gluten sensitive enteropathy. Jay antibody assayOrdered By: Werner Pérez on 08-17-2024 SM Antibody <0.2 AI 0.0-0.9 [facility] Comment on above: Previous reported re sult: TNP AIEdited by: PEGGY on 08/19/24:1508 AMENDED REPORT 08/19/24 1508 JAY Ab previously reported as: Test not performed Sodium levelOrdered By: Ward flynnmagalie Friend on 08-17-2024 Sodium [Moles/Vol] 142 mmol/L 133-145 [facility] Total proteinOrdered By: Jadon oralmagalie Friend on 08-17-2024 Protein [Mass/Vol] 6.4 g/dL 5.9-8.4 [facility] Venous blood ammonia measure mentOrdered By: Werner Pérez on 08-17-2024 Ammonia (P) [Moles/Vol] 29.2 umol/L 16-60 [facility] aPTT Coag (PPP) [Time]Ordere d By: Werner Pérez on 08-17-2024 aPTT Coag (Bld) [Time] 30.2 s 24.1-36.2 [facility] .GFRon 05-10-2024 GFR >60 Normal [facility] Comment on above: Result Comment: GFR Population mean for , Non- Americans Ages 20-29 = 116 mL/min/1.73 sq.m. Ages 30-39 = 107 mL/min/1.73 sq.m. Ages 40-49 = 99 mL/min/1.73 sq.m. Ages 50-59 = 93 mL/min/1.73 sq.m. Ages 60-69 = 85 mL/min/1.73 sq.m. Ages 70+ = 75 mL/min/1.73 sq.m. Chronic Kidney Disease: Less than 60 mL/min/1.73 square meters End Stage Renal Disease: Less than 15 mL/min/1.73 square meters Performed By: #### G FR, FERR, FES, CMP #### [place] [address] GFR Non- >60 [facility] Comment on above: Result Comment: GFR Population mean for , Non- Americans Ages 20-29 = 116 mL/min/1.73 sq.m. Ages 30-39 = 107 mL/min/1.73 sq.m. Ages 40-49 = 99 mL/min/1.73 sq.m. Ages 50-59 = 93 mL/min/1.73 sq.m. Ages 60-69 = 85 mL/min/1.73 sq.m. Ages 70+ = 75 mL/min/1.73 sq.m. Chronic Kidney Disease: Less than 60 mL/min/1.73 square meters End Stage Renal Disease: Less than 15 mL/min/1.73 square meters Performed By: #### G FR, FERR, FES, CMP #### [place] [address] CMPon 05-10-2024 Albumin Level 3.9 G/dL Normal 3.2-4.8 [facility] Comment on above: Performed By: #### G FR, FERR, FES, CMP #### [place] [address] Albumin/Globulin [Mass ratio] 1.1 {ratio} Normal 0.9-1.6 [facility] Comment on above: Performed By: #### G FR, FERR, FES, CMP #### [place] [address] ALP [Catalytic activity/Vol] 61 U/L Normal 38-126 [facility] Comment on above: Performed By: #### G FR, FERR, FES, CMP #### [place] [address] ALT [Catalytic activity/Vol] 26 U/L Normal 12-55 [facility] Comment on above: Performed By: #### G FR, FERR, FES, CMP #### [place] [address] AST [Catalytic activity/Vol] 15 U/L Normal 8-34 [facility] Comment on above: Performed By: #### G FR, FERR, FES, CMP #### [place] [address] Bili Total 0.70 mg/dL Normal 0.20-1.20 [facility] Comment on above: Result Comment: Use of this assay is not recommended for patients undergoing treatment with eltrombopag due to the potential for falsely elevated results. Performed By: #### G FR, FERR, FES, CMP #### [place] [address] BUN/Creatinine Ratio 13.3 ratio Normal 10.0-22.0 [facility] Comment on above: Performed By: #### G FR, FERR, FES, CMP #### [address] [address] Calcium [Mass/Vol] 9.8 mg/dL Normal 8.7-10.4 [facility] Comment on above: Performed By: #### G FR, FERR, FES, CMP #### [address] [address] Chloride [Moles/Vol] 105 mmol/L Normal 98-110 [facility] Comment on above: Performed By: #### G FR, FERR, FES, CMP #### [address] [address] CO2 [Moles/Vol] 28 mmol/L Normal 22-32 [facility] Comment on above: Performed By: #### G FR, FERR, FES, CMP #### [place] [id number] Creatinine [Mass/Vol] 0.90 mg/dL Normal 0.60-1.40 [facility] Comment on above: Result Comment: Test ing performed on [employer] analyzer using enzymatic creatinine methodology. Performed By: #### G FR FERR, FES, CMP #### [address] [address] Electrolyte Balance 8.0 mEq/L Normal 4.0-15.0 [facility] Comment on above: Performed By: #### G FR, FERR, FES, CMP #### [address] [address] Globulin 3.6 G/dL Normal 1.5-3.8 [facility] Comment on above: Performed By: #### G FR, FERR, FES, CMP #### [address] [address] Glucose [Mass/Vol] 165 mg/dL High 82-115 [facility] Comment on above: Performed By: #### G FR, FERR, FES, CMP #### [place] [id number] Potassium [Moles/Vol] 4.0 mmol/L Normal 3.5-5.0 [facility] Comment on above: Performed By: #### G FR, FERR, FES, CMP #### [place] [address] Sodium [Moles/Vol] 141 mmol/L Normal 136-145 [facility] Comment on above: Performed By: #### G FR, FERR, FES, CMP #### [place] [address] Total Protein 7.5 G/dL Normal 5.7-8.2 [facility] Comment on above: Performed By: #### G FR, FERR, FES, CMP #### [place] [address] Urea nitrogen [Mass/Vol] 12.0 mg/dL Normal 8.0-22.0 [facility] Comment on above: Performed By: #### G FR, FERR, FES, CMP #### [place] [address] Charbel 05-10-2024 Ferritin [Mass/Vol] 37.9 ng/mL Normal 26.0-388.0 [facility] Comment on above: Performed By: #### G FR, FERR, FES, CMP #### [address] 05-10-2024 Iron [Mass/Vol] 112 ug/dL Normal 65-175 [facility] Comment on above: Performed By: #### G FR, FERR, FES, CMP #### [place] [address] Iron Sat 31 % Normal [facility] Comment on above: Performed By: #### G FR, FERR, FES, CMP #### [place] [address] TIBC 358 mcg/dL Normal 250-500 [facility] Comment on above: Performed By: #### G FR, FERR, FES, CMP #### [place] [address] US ELASTOGRAPHY LIVER W/ABD LTDon 03-08-2024 US ELASTOGRAPHY LIVER W/ABD LTD ORIGINAL EXAMINATION: LIVER ELASTOGRAPHY [id number]/14/2024 9:15 am RUQ Limited ultrasound abdomen and Hepatic elastography COMPARISON: None HISTORY: ORDERING SYSTEM PROVIDED HISTORY: Reason for Exam: Nonalcoholic steatohepatitis (MARION), Portal hypertension, All images are recorded and archived. FINDINGS: The gallbladder is normal. There is no intrahepatic bile duct dilatation. The common duct is 2.1 mm mm at the collin hepatis. The liver is normal in size with mild increased echotexture and masking of the portal triads. No intrahepatic bile duct dilatation is present. The pancreas unremarkable. No ascites is seen in the RUQ. Limited survey images of the right kidney . Right kidney measures 11.4 x 6.0 x 6.7 cm without acute medical or surgical disease.. Elastography of the liver was performed in the right lobe. Median velocity: 1.67 m/s IQR/median ratio: 6.6% (Value less than or equal to 15% should be seen to ensure exam adequacy.) IMPRESSION: 1. Moderate hepatic steatosis without acute surgical finding. 2. Liver elastography indicates mild to moderate risk of clinically significant liver fibrosis. Shear Wave Liver Elastography-liver fibrosis staging Median Velocity: Recommendation: 1.35-1.66 m/s (5.48 kPa - 8.29 kPa) Normal to mild risk of clinically significant liver fibrosis : METAVIR Stage F1 1.66-1.77 m/s (8.29 kPa - 9.40 kPa) Hqyo-sa-jbrxrfxm risk of clinically significant liver fibrosis. (METAVIR Stage F2) 1.77-1.99 m/s (9.40 kPa - 11.9 kPa) Moderate to severe risk of clinically significant liver fibrosis (METAVIR Stage F3) > 1.99 m/s (> 11.9 kPa) Advanced Fibrosis and/or Cirrhosis: (METAVIR Stage F4) Interpreted by: Enzo Lujan DO Preliminary Report By: Enzo Lujan DO Electronically signed By Enzo Lujan DO Dictated Date: 03/08/2024 1:02:29 PM Prelim Date: 03/08/2024 1:04:19 PM Sign Date: 03/08/2024 1:04:19 PM Ordering Provider: MICHAEL YOON [facility] LABORATORYOrdered By: Hugo Nascimento on 03-04-2024 Albumin DL <= 20 mg/L (U) [Mass/Vol] 452 mcg/dL Invalid Interpretation Code AO ADM SS Albumin/Creatinine DL <= 20 mg/L (U) [Mass ratio] 5 mcg/mg Normal 0 - 30 mcg/mg AO ADM SS Creatinine (U) [Mass/Vol] 93.0 mg/dL Normal 39.0 - 259.0 mg/dL AO ADM SS MALBRon 03-04-2024 U Creatinine 93.0 mg/dL Normal 39.0-259.0 [facility] Comment on above: Performed By: #### M ALBR #### [facility] [address] [place], [place] [address] U Microalb 452 mcg/dL Normal [facility] Comment on above: Performed By: #### M ALBR #### [place] [address] [place], [place] [address] U Ratio Alb/Cre 5 mcg/mg Normal 0-30 [facility] Comment on above: Performed By: #### M ALBR #### [place] [id number] [place], [place] [address] XR Spine Cervical Complete w ith Flexion and Extensionon 09-14-2023 XR Spine Cervical Complete with Flexion and Extension CERVICAL SPINE: CLINICAL INDICATION: Pain with prior surgery TECHNIQUE: AP, lateral, bilateral oblique and open mouth plus flexion and extension views COMPARISON: None FINDINGS: There is no evidence for fracture or malalignment of the cervical vertebrae. Anterior metallic fixation and interbody fusion extension C6-C7. Marginal osteophytes are noted at C3, C4, C5 and there is disc space narrowing at C3-C4, C4-C5 and C5-C6. C7-T1 disc level is not optimally delineated on most of the views. There is bilateral bony foraminal narrowing at C3-C4, C4-C5 and to a slightly lesser degree at C5-C6, C6-C7 and C7-T1. No instability with flexion or extension is noted.. The retropharyngeal and retrotracheal soft tissues are unremarkable. IMPRESSION: Cervical spondylosis from C3-C4 through C5-C6 along with bilateral foraminal narrowing throughout multiple levels. No instability. Report Dictated on Authenticated by: Jaleel Sarkar On: 09/15/2023 09:24 Read by: JALEEL SARKAR MD, MD Date: 09/15/2023 09:24 [facility] US ABDOMEN COMPLETEon 2023 US ABDOMEN COMPLETE ORIGINAL EXAMINATION: COMPLETE ABDOMINAL ULTRASOUND 08/31/2023 8:36 am COMPARISON: CT abdomen and pelvis on 03/18/2023 HISTORY: ORDERING SYSTEM PROVIDED HISTORY: Reason for Exam: CIRRHOSIS FINDINGS: LIVER: The liver is normal in size with long axis of 17 cm. Liver parenchyma has normal echogenicity. There is no hepatic lesion. Bile ducts in the liver are normal in diameter. BILIARY SYSTEM: Gallbladder is unremarkable without evidence of pericholecystic fluid, wall thickening or stones. Negative sonographic Delacruz's sign. Common bile duct is within normal limits measuring 3 mm. KIDNEYS: The right kidney measures 11.8 x 5.9 x 6.0 cm. The left kidney is 12.1 x 5.4 x 5.9 cm. Kidneys abnormal echogenicity and cortical thickness. There is no hydronephrosis or evidence of nephrolithiasis. PANCREAS: Visualized portions of the pancreas are unremarkable. SPLEEN: The spleen is enlarged measuring 18.3 x 14.5 x 13.9 cm. Spleen was similar in size on 03/18/2023. There is no splenic lesion. IVC: The IVC is patent. AORTA: Aorta is patent without aneurysm. OTHER: No evidence of ascites. IMPRESSION: Splenomegaly. No acute findings. Interpreted by: Bridger Figueroa MD Preliminary Report By: Bridger Figueroa MD Electronically signed By Bridger Figueroa MD Dictated Date: 09/01/2023 12:43:09 AM Prelim Date: 09/01/2023 12:47:25 AM Sign Date: 09/01/2023 12:47:25 AM Ordering Provider: MICHAEL YOON [facility]) [facility] 07-21-2023 Order Number [id number] [facility]) Comment on above: Order Comment: AAT Performed By: #### [id number] #### [address] [address] Test Name Alpha 1 Antitrypsin [facility] ([place]) Comment on above: Order Comment: AAT Performed By: #### 9 [id number] #### [place] [address] Misc Test Result COMMENT Normal [facility] ([place]) Comment on above: Order Comment: AAT Result Comment: Test Ordered: [id number] Wzlgz-4-Ehhrstcwxdt, Serum Celoz-0-Jawrplsnbal, Serum 169 mg/dL Reference Range: 101-187 Performed At: [facility] [address] [id number] Damion Guerrero PhD Ph:[phone] Performed By: #### 9 [id number] #### [place] [address] ENDOon 07-17-2023 TTG Ab (IgA) <4.0 Normal <=3.9 [facility] ([place]) Comment on above: Result Comment: Effe ctive 12/15/2022: Evaluation of Transglutaminase Ab (IgA) results: Negative: Less than 4.0 Weak positive: 4.0 to 10.0 Positive: Greater than 10.0 Transglutaminase Ab is present in approximately 95% to 100% of patients with celiac disease and 80% of patients with dermatitis herpetiformis. The antibody is rarely found in other conditions. Transglutaminase Ab levels will decrease or increase depending on the removal or reintroduction of gluten into the diet. Patients who are IgA deficient develop celiac disease more frequently than individuals who have an intact IgA system. Therefore, gliadin and transglutaminase IgA antibodies may be absent in patients with celiac disease. IgG antibodies to gliadin are especially helpful in IgA deficient patients. These test results were obtained with the [employer] QUANTA Lite R-tTG IgA STEVEN. R-tTG IgA values obtained with different manufacturers' assay methods may not be used interchangeably. Performed By: #### G FR, ADIFF, BMP, CBC, ANEU #### [place] [address] AHAVGon 07-15-2023 Hepatitis A Antibody IgG Positive Normal [facility] ([place]) Comment on above: Result Comment: Cons istent with serological evidence of immunity to Hepatitis A Virus. Performed By: [facility] [employer] [address] [place] [address] Apron Trimmer: David Sadler III, M.D. CLIA#: [id number] Performed By: #### G FR, ADIFF, BMP, CBC, ANEU #### [place] [address] ANAon 07-15-2023 Nuclear Ab IF (S) [Titer] 40 {titer} Normal Neg 40 [facility] ([place]) Comment on above: Result Comment: KINJAL Screen and Titer methodology is an immunofluorescent technique utilizing Hep2 Substrate. Performed By: #### G FR, ADIFF, BMP, CBC, ANEU #### [place] [address] MITOon 07-15-2023 Mitochondrial Ab Neg 20 Normal Neg 20 [facility] ([place]) Comment on above: Result Comment: Magdaleno chondrial Ab Screen and Titer methodology is an immunofluorescent technique utilizing MSK Substrate. Performed By: #### G FR, ADIFF, BMP, CBC, ANEU #### [place] [address] SMUSCon 07-15-2023 Smooth Muscle Ab Neg 20 Normal Neg 20 [facility] ([place]) Comment on above: Result Comment: Smoo th Muscle Ab Screen and Titer methodology is an immunofluorescent technique utilizing MSK Substrate. Performed By: #### G FR, ADIFF, BMP, CBC, ANEU #### [place] [address] .GFRon 07-14-2023 GFR >60 Normal [facility] ([place]) Comment on above: Result Comment: GFR Population mean for , Non- Americans Ages 20-29 = 116 mL/min/1.73 sq.m. Ages 30-39 = 107 mL/min/1.73 sq.m. Ages 40-49 = 99 mL/min/1.73 sq.m. Ages 50-59 = 93 mL/min/1.73 sq.m. Ages 60-69 = 85 mL/min/1.73 sq.m. Ages 70+ = 75 mL/min/1.73 sq.m. Chronic Kidney Disease: Less than 60 mL/min/1.73 square meters End Stage Renal Disease: Less than 15 mL/min/1.73 square meters Performed By: #### G FR, ADIFF, BMP, CBC, ANEU #### [place] [address] GFR Non- >60 Normal [facility] ([place]) Comment on above: Result Comment: GFR Population mean for , Non- Americans Ages 20-29 = 116 mL/min/1.73 sq.m. Ages 30-39 = 107 mL/min/1.73 sq.m. Ages 40-49 = 99 mL/min/1.73 sq.m. Ages 50-59 = 93 mL/min/1.73 sq.m. Ages 60-69 = 85 mL/min/1.73 sq.m. Ages 70+ = 75 mL/min/1.73 sq.m. Chronic Kidney Disease: Less than 60 mL/min/1.73 square meters End Stage Renal Disease: Less than 15 mL/min/1.73 square meters Performed By: #### G FR, ADIFF, BMP, CBC, ANEU #### [place] [address] AFPSon 07-14-2023 AFP, Tumor Marker <2.2 Normal 0.0-8.5 [facility] ([place]) Comment on above: Result Comment: Pam ent results determined by assays using different manufacturers for methods may not be comparable. Performed By: #### G FR, ADIFF, BMP, CBC, ANEU #### [place] [address] CERUL 07-14-2023 Ceruloplasmin 27.0 mg/dL Normal 22.0-58.0 [facility] ([place]) Comment on above: Performed By: #### G FR, ADIFF, BMP, CBC, ANEU #### [place] [address] CMPon 07-14-2023 Albumin Level 4.3 G/dL Normal 3.2-4.8 [facility] ([place]) Comment on above: Performed By: #### G FR, ADIFF, BMP, CBC, ANEU #### [place] [address] Albumin/Globulin [Mass ratio] 1.3 {ratio} Normal 0.9-1.6 [facility] ([place]) Comment on above: Performed By: #### G FR, ADIFF, BMP, CBC, ANEU #### [address] [address] ALP [Catalytic activity/Vol] 58 U/L Normal 38-126 [facility] ([place]) Comment on above: Performed By: #### G FR, ADIFF, BMP, CBC, ANEU #### [address] [address] ALT [Catalytic activity/Vol] 32 U/L Normal 12-55 [facility] ([place]) Comment on above: Performed By: #### G FR, ADIFF, BMP, CBC, ANEU #### [address] [address] AST [Catalytic activity/Vol] 26 U/L Normal 8-34 [facility] ([place]) Comment on above: Performed By: #### G FR, ADIFF, BMP, CBC, ANEU #### [place] [address] Bili Total 0.90 mg/dL Normal 0.20-1.20 [facility] ([place]) Comment on above: Result Comment: Use of this assay is not recommended for patients undergoing treatment with eltrombopag due to the potential for falsely elevated results. Performed By: #### G FR, ADIFF, BMP, CBC, ANEU #### [place] [address] BUN/Creatinine Ratio 14.3 ratio Normal 10.0-22.0 [facility] ([place]) Comment on above: Performed By: #### G FR, ADIFF, BMP, CBC, ANEU #### [address] [address] Calcium [Mass/Vol] 9.8 mg/dL Normal 8.7-10.4 [facility] ([place]) Comment on above: Performed By: #### G FR, ADIFF, BMP, CBC, ANEU #### [place] [id number] Chloride [Moles/Vol] 106 mmol/L Normal 98-110 [facility] ([place]) Comment on above: Performed By: #### G FR, ADIFF, BMP, CBC, ANEU #### [address] [address] CO2 [Moles/Vol] 30 mmol/L Normal 22-32 [facility] ([place]) Comment on above: Performed By: #### G FR, ADIFF, BMP, CBC, ANEU #### [address] [address] Creatinine [Mass/Vol] 1.12 mg/dL Normal 0.60-1.40 [facility] ([place]) Comment on above: Performed By: #### G FR, ADIFF, BMP, CBC, ANEU #### [address] [address] Electrolyte Balance 5.0 mEq/L Normal 4.0-15.0 [facility] ([place]) Comment on above: Performed By: #### G FR, ADIFF, BMP, CBC, ANEU #### [address] [address] Globulin 3.3 G/dL Normal 1.5-3.8 [facility] ([place]) Comment on above: Performed By: #### G FR, ADIFF, BMP, CBC, ANEU #### [address] [address] Glucose [Mass/Vol] 103 mg/dL Normal 82-115 [facility] ([place]) Comment on above: Performed By: #### G FR, ADIFF, BMP, CBC, ANEU #### [address] [address] Potassium [Moles/Vol] 5.0 mmol/L Normal 3.5-5.0 [facility] ([place]) Comment on above: Performed By: #### G FR, ADIFF, BMP, CBC, ANEU #### [address] [address] Sodium [Moles/Vol] 141 mmol/L Normal 136-145 [facility] ([place]) Comment on above: Performed By: #### G FR, ADIFF, BMP, CBC, ANEU #### [address] [address] Total Protein 7.6 G/dL Normal 5.7-8.2 [facility] ([place]) Comment on above: Result Comment: No te - New Reference Range in effect 19 Performed By: #### G FR, ADIFF, BMP, CBC, ANEU #### [place] [address] Urea nitrogen [Mass/Vol] 16.0 mg/dL Normal 8.0-22.0 [facility] ([place]) Comment on above: Performed By: #### G FR, ADIFF, BMP, CBC, ANEU #### [place] [address] Charbel 07-14-2023 Ferritin [Mass/Vol] 59.0 ng/mL Normal 26.0-388.0 [facility] ([place]) Comment on above: Performed By: #### G FR, ADIFF, BMP, CBC, ANEU #### [place] [address] FESon 07-14-2023 Iron [Mass/Vol] 108 ug/dL Normal 65-175 [facility] ([place]) Comment on above: Performed By: #### G FR, ADIFF, BMP, CBC, ANEU #### [place] [address] Iron Sat 31 % Normal [facility] ([place]) Comment on above: Performed By: #### G FR, ADIFF, BMP, CBC, ANEU #### [place] [address] TIBC 354 mcg/dL Normal 250-500 [facility] ([place]) Comment on above: Performed By: #### G FR, ADIFF, BMP, CBC, ANEU #### [place] [address] HAVMon 07-14-2023 Hep A IgM Ab Non-Reactive Normal Non-Reacti ve [facility] ([place]) Comment on above: Performed By: #### G FR, ADIFF, BMP, CBC, ANEU #### [place] [address] Hep A IgM Ab Int Normal [facility] ([place]) Comment on above: Result Comment: No s erological evidence of a current Hepatitis A infection. See Interp Performed By: #### G FR, ADIFF, BMP, CBC, ANEU #### [place] [id number] HBCMon 07-14-2023 Hep B Core IgM Ab Non-Reactive Normal Non-Reacti [facility] ([place]) Comment on above: Performed By: #### G FR, ADIFF, BMP, CBC, ANEU #### [place] [address] Hep B Core IgM Ab Int Normal [facility] ([place]) Comment on above: Result Comment: Samp les with a value < 0.80 Index are considered nonreactive (negative) for IgM antibodies to hepatitis B core antigen. See Interp Performed By: #### G , ADARIELLA, BMP, CBC, ANEU #### [place] [address] HBSABon 07-14-2023 Hep B Surf Ab <3.1 Low >=10.0 [facility] ([place]) Comment on above: Result Comment: 0 to < 10.0 mIU/mL Nonreactive Patient is considered not to have protective immunity to HBV infection >/= 10.0 mIU/mL Reactive Patient is considered to have protective immunity to HBV infection. This assay is traceable to the World Health Organization (WHO) Hepatitis B Immunoglobulin 1st International Reference Preparation (1976). The accepted criteria for immunity to HBV is anti-HBs activity >/= 10.0 mIU/mL, as defined by the WHO International Reference Preparation. Performed By: #### G FR, ADIFF, BMP, CBC, ANEU #### [place] [id number] HBSAGon 07-14-2023 Hep B Surf Ag Non-Reactive Normal Non-Reacti [facility] ([place]) Comment on above: Performed By: #### G FR, ADIFF, BMP, CBC, ANEU #### [place] [id number] HCVon 07-14-2023 Hep C Ab Non-Reactive Normal Non-Reacti [facility] ([place]) Comment on above: Performed By: #### G FR, ADIFF, BMP, CBC, ANEU #### [place] [address] Hep C Ab Int Normal [facility] ([place]) Comment on above: Result Comment: Nonr eactive: Samples with a value < 0.80 are considered nonreactive (negative) for antibodies to HCV. A negative test result does not exclude the possibility of exposure to or infection with HCV. HCV antibodies may be undetectable in some stages of the infection and in some clinical conditions. See Interp Performed By: #### G FR, ADIFF, BMP, CBC, ANEU #### [place] [address] HGMPon 07-14-2023 Erythrocyte distribution width (RBC) [Ratio] 13.6 % Normal 11.5-15.5 [facility] ([place]) Comment on above: Performed By: #### G FR, ADIFF, BMP, CBC, ANEU #### [place] [address] Hematocrit (Bld) [Volume fraction] 43.5 % Normal 40.0-52.0 [facility] ([place]) Comment on above: Performed By: #### G FR, ADIFF, BMP, CBC, ANEU #### [place] [address] Hgb 15.1 G/dL Normal 13.0-17.5 [facility] ([place]) Comment on above: Performed By: #### G FR, ADIFF, BMP, CBC, ANEU #### [place] [address] MCH (RBC) [Entitic mass] 31.6 pg Normal 27.0-33.0 [facility] ([place]) Comment on above: Performed By: #### G FR, ADIFF, BMP, CBC, ANEU #### [place] [address] MCHC 34.8 G/dL Normal 32.0-36.0 [facility] ([place]) Comment on above: Performed By: #### G FR, ADIFF, BMP, CBC, ANEU #### [place] [address] MCV (RBC) [Entitic vol] 90.8 fL Normal 81.0-100.0 [facility] ([place]) Comment on above: Performed By: #### G FR, ADIFF, BMP, CBC, ANEU #### [place] [address] Platelet 94 10 3/mcL Low 150-450 [facility] ([place]) Comment on above: Performed By: #### G FR, ADIFF, BMP, CBC, ANEU #### [place] [address] Platelet mean volume (Bld) [Entitic vol] 9.8 fL Normal 6.4-10.5 [facility] ([place]) Comment on above: Performed By: #### G FR, ADIFF, BMP, CBC, ANEU #### [place] [address] RBC 4.80 10 6/mcL Normal 4.50-6.00 [facility] ([place]) Comment on above: Performed By: #### G FR, ADIFF, BMP, CBC, ANEU #### [place] [address] WBC 5.3 10 3/mcL Normal 4.5-10.8 [facility] ([place]) Comment on above: Performed By: #### G FR, ADIFF, BMP, CBC, ANEU #### [place] [address] IGAon 07-14-2023 IgA [Mass/Vol] 253 mg/dL Normal 40-350 [facility] ([place]) Comment on above: Result Comment: No te - New Reference Range in effect 19 Performed By: #### G FR, ADIFF, BMP, CBC, ANEU #### [place] [address] PROon 07-14-2023 INR Coag (PPP) [Relative time] 1.1 {INR} Normal [facility] ([place]) Comment on above: Result Comment: The [employer] (CHEST, 1992, 102:312S-25S) recommended therapeutic range for oral anticoagulant therapy is: LOW RISK: Prophylaxis of venous thrombosis INR: 2.0-3.0 Treatment of pulmonary embolism 2.0-3.0 Prevention of systemic embolism 2.0-3.0 HIGH RISK: Mechanical prosthetic valves 2.5-3.5 Performed By: #### G FR, ADIFF, BMP, CBC, ANEU #### [place] [id number] [place] [address] PT Coag (PPP) [Time] 12.1 s Normal 9.0-14.2 [facility] ([place]) Comment on above: Result Comment: Effe ctive 12/07/07, Protime results may be affected by some antibiotics (i.e. Ciprofloxacin, Azithromycin, Bactrim) which may potentiate the action of oral anticoagulants, with further increases in Protime/INR. Performed By: #### G FR, ADIFF, BMP, CBC, ANEU #### [place] [address] [place] [address] XR HAND MINIMUM 3 VIEWS LEFT on 04-11-2023 XR HAND MINIMUM 3 VIEWS LEFT ORIGINAL EXAMINATION: THREE XRAY VIEWS OF THE LEFT HAND04/10/2023 12:31 pm HAND 3 VIEWS LEFT XR COMPARISON: None HISTORY: ORDERING SYSTEM PROVIDED HISTORY: Reason for Exam: left hand pain, FINDINGS: No acute fracture, dislocation, lytic process or periosteal reaction is seen in the visualized bones and joints. No erosive type of arthritis. No periarticular soft tissue calcification. There is moderate osteoarthritis in the 1st carpal metacarpal joint and mild triscaphe osteoarthritis. Minimal degenerative changes in the hand. IMPRESSION: No acute skeletal abnormality is seen. . 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 Interpreted by: Garrick Hernandez MD Preliminary Report By: Garrick Hernandez MD Electronically signed By Garrick Hernandez MD Dictated Date: 04/11/2023 11:14:03 AM Prelim Date: 04/11/2023 11:14:55 AM Sign Date: 04/11/2023 11:14:55 AM Ordering Provider: MISTY BANERJEE Normal [facility] ([place]) CRE POCon 03-18-2023 Perf Loc - POCT Tested at AM Normal [facility]) Comment on above: Result Comment: [facility] [address] [place], [place] [address] Creatinine [Mass/Vol] 1.07 mg/dL Normal 0.60-1.40 [facility] ([place]) Estimated GFR - POCT >60 Normal >=60 [facility] ([place]) Comment on above: Result Comment: Chronic Kidney Disease: Less than 60 mL/min/1.73 square meters End Stage Renal Disease: Less than 15 mL/min/1.73 square meters Performing Instrument - POCT RADCREAT3 Normal [facility] ([place]) CT ABDOMEN/PELVIS W/CONTRAST on 03-18-2023 CT ABDOMEN/PELVIS W/CONTRAST ORIGINAL EXAMINATION: CT OF THE ABDOMEN AND PELVIS WITH CONTRAST 03/18/2023 1:49 pm TECHNIQUE: CT of the abdomen and pelvis was performed with the administration of intravenous contrast. Multiplanar reformatted images are provided for review. Automated exposure control, iterative reconstruction, and/or weight based adjustment of the mA/kV was utilized to reduce the radiation dose to as low as reasonably achievable. COMPARISON: None. HISTORY: ORDERING SYSTEM PROVIDED HISTORY: Reason for Exam: N40.1Benign prostatic hyperplasia with lower urinary tract symptoms R30.0Symptoms, signs and abnormal clinical and laboratory findings, not elsewhere classified pt c/o throbbing pain post urination, urgency and straining to urinate,fatty liver and 50# intentional wt loss since 05/15 w/diet FINDINGS: Lower chest: There is minor dependent atelectasis at the lung bases. The visualized cardiac and posterior mediastinal structures are unremarkable. Abdomen: Within the abdomen, the gallbladder, pancreas, adrenal glands and kidneys are within normal limits. There is a subtle nodular contour of the liver raising concern for cirrhosis the spleen is enlarged measuring 18.8 cm in length the small bowel is grossly normal. There is evidence of previous colonic anastomosis in the right lower quadrant without evidence of postoperative complication. No obvious free fluid, free air or lymphadenopathy is identified. The abdominal aorta is normal in caliber with minor atherosclerotic calcifications. Pelvis: Within the pelvis, the urinary bladder is within normal limits. No gross abnormality of the prostate or seminal vesicles is identified. The prostate is normal in size measuring 4.3 cm in transverse dimension. Soft tissue/Bones: No soft tissue masses or pathologic fluid collections seen. No acute osseous abnormality identified. There are degenerative changes affecting the hips, SI joints and spine. No dominant lytic or sclerotic bone lesions are identified. IMPRESSION: 1. No acute intra-abdominal or intrapelvic process. Interpreted by: Aquilino Agrawal MD Preliminary Report By: Aquilino Agrawal MD Electronically signed By Aquilino Agrawal MD Dictated Date: 03/18/2023 2:07:12 PM Prelim Date: 03/18/2023 3:08:07 PM Sign Date: 03/18/2023 3:08:07 PM Ordering Provider: CLIFF Quiroga [facility] ([place]) PSAon 03-18-2023 Prostate Specific Antigen 0.52 ng/mL Normal 0.02-4.00 [facility]) Comment on above: Result Comment: Pam ent results determined by assays using different manufacturers for methods may not be comparable. Performed By: #### P SA #### [address] [address] Final Surgical Pathology Rep rico 12-24-2022 Final Surgical Pathology Report . Pathology Reports Accession: Collected Date/Time: Received Date/Time: Pathologist: [id number] 12/23/2022 10:52 EDT 12/23/2022 13:59 EDT SON BROCK MD Final Surgical Pathology Report DIAGNOSIS: CECAL POLYP: - TUBULAR ADENOMA CLINICAL INFORMATION: Procedure: COLONOSCOPY WITH POLYPECTOMY WITH CLIP PLACEMENT X 1 Preoperative diagnosis: COLON POLYPS Postoperative diagnosis: COLON POLYPS SPECIMEN: A CECAL POLYP - REMOVED VIA HOT SNARE GROSS DESCRIPTION: All parts labelled with patient name and [id number] Received in formalin labeled cecal polyp are 2 bee-yellow tissue fragments measuring 0.2 and 0.3 cm. TS-1 Misa Soni, Grossing Food Porter/ Dr. Brody Russell, Pathologist Dictated by Misa Soni MICROSCOPIC DESCRIPTION: The microscopic examination is performed, except in the case of Gross Only. Electronically Signed by Pathology Report verified by [facility] SON BROCK Sign out Date: 12/24/2022 10:43 Performing Lab: [facility], [address] [place] [id number] [place] [address] Pathology Dept Disclaimer If ancillary studies were utilized, the following Laboratory Developed Test (LDT) disclaimer will apply: Under CLIA requirements, [facility] is qualified to perform high complexity testing. For all ancillary stains, positive and negative controls stain appropriately. Performance characteristics of immunohistochemical and chromogenic in-situ hybridization tests have been determined by [facility]. These tests are used for clinical purposes, They should not be regarded as investigational or for research. Normal [facility]) LABORATORYOrdered By: Tyler Valenzuela on 12-23-2022 Glucose [Mass/Vol] 75 mg/dL Invalid Interpretation Code 82 - 115 mg/dL [facility] Work Phone: Final Surgical Pathology Rep rico 12-19-2022 Final Surgical Pathology Report . Pathology Reports Accession: Collected Date/Time: Received Date/Time: Pathologist: [id number] 12/18/2022 10:30 EDT 12/18/2022 11:22 EDT MD JOSE RODRIGUEZ Final Surgical Pathology Report DIAGNOSIS: STOMACH, BIOPSY: - MILD CHRONIC GASTRITIS - NEGATIVE FOR H. PYLORI CLINICAL INFORMATION: Procedure: ESOPHAGOGASTRODUODENOSCOP Y WITH ANESTHESIA Preoperative diagnosis: GERD Postoperative diagnosis: GERD SPECIMEN: A GASTRIC BX - GASTRITIS GROSS DESCRIPTION: All parts labelled with patient name and [id number] Received in formalin labeled gastric biopsy are 3 bee-pink tissue fragments measuring 0.1 to 0.2 cm. TS-1 Misa Soni, Grossing Food Porter/ Dr. Brody Russell, Pathologist Dictated by Misa Soni MICROSCOPIC DESCRIPTION: The microscopic examination is performed, except in the case of Gross Only. Electronically Signed by Pathology Report verified by [facility] JOSE RODRIGUEZ MD Sign out Date: 12/19/2022 10:04 Performing Lab: [facility], [address] [place] [address] Pathology Dept Disclaimer If ancillary studies were utilized, the following Laboratory Developed Test (LDT) disclaimer will apply: Under CLIA requirements, [facility] is qualified to perform high complexity testing. For all ancillary stains, positive and negative controls stain appropriately. Performance characteristics of immunohistochemical and chromogenic in-situ hybridization tests have been determined by [facility]. These tests are used for clinical purposes, They should not be regarded as investigational or for research. Normal [facility] ([place]) .Auto Diffon 12-18-2022 Basophil, Absolute 0.0 10 3/mcL Normal 0.0-0.3 [facility]) Comment on above: Performed By: #### A DIFF, ANEU, CBC #### [address] [address] Basophils/100 WBC (Bld) 0.9 % Normal 0.0-2.5 A [facility] ([place]) Comment on above: Performed By: #### A DIFF, ANEU, CBC #### [address] [address] Eosinophil, Absolute 0.2 10 3/mcL Normal 0.0-0.7 [facility] ([place]) Comment on above: Performed By: #### A DIFF, ANEU, CBC #### [address] [address] Eosinophils/100 WBC (Bld) 3.6 % Normal 0.0-6.0 [facility] ([place]) Comment on above: Performed By: #### A DIFF, ANEU, CBC #### [address] [address] Lymphocyte, Absolute 1.1 10 3/mcL Normal 0.9-4.3 [facility] ([place]) Comment on above: Performed By: #### A DIFF, ANEU, CBC #### [address] [address] Lymphocytes/100 WBC (Bld) 23.6 % Normal 20.0-40.0 [facility] ([place]) Comment on above: Performed By: #### A DIFF, ANEU, CBC #### [address] [address] Monocyte, Absolute 0.3 10 3/mcL Normal 0.1-1.4 [facility] ([place]) Comment on above: Performed By: #### A DIFF, ANEU, CBC #### [address] [address] Monocytes/100 WBC (Bld) 6.2 % Normal 2.0-13.0 [facility] ([place]) Comment on above: Performed By: #### A DIFF, ANEU, CBC #### [address] [address] Neutrophils/100 WBC (Bld) 65.7 % Normal 50.0-75.0 [facility] ([place]) Comment on above: Performed By: #### A DIFF, ANEU, CBC #### [place] [address] .NEUABSon 12-18-2022 Neutrophil, Absolute 3.0 10 3/mcL Normal 2.3-8.1 [facility] ([place]) Comment on above: Performed By: #### A DIFF, ANEU, CBC #### [place] [address] CBCon 12-18-2022 Erythrocyte distribution width (RBC) [Ratio] 14.2 % Normal 11.5-15.5 [facility] ([place]) Comment on above: Performed By: #### A DIFF, ANEU, CBC #### [place] [address] Hematocrit (Bld) [Volume fraction] 41.6 % Normal 40.0-52.0 [facility] ([place]) Comment on above: Performed By: #### A DIFF, ANEU, CBC #### [place] [address] Hgb 14.3 G/dL Normal 13.0-17.5 [facility] ([place]) Comment on above: Performed By: #### A DIFF, ANEU, CBC #### [place] [address] MCH (RBC) [Entitic mass] 31.2 pg Normal 27.0-33.0 [facility] ([place]) Comment on above: Performed By: #### A DIFF, ANEU, CBC #### [place] [address] MCHC 34.3 G/dL Normal 32.0-36.0 [facility] ([place]) Comment on above: Performed By: #### A DIFF, ANEU, CBC #### [place] [address] MCV (RBC) [Entitic vol] 91.0 fL Normal 81.0-100.0 [facility] ([place]) Comment on above: Performed By: #### A DIFF, ANEU, CBC #### [place] [id number] Platelet 93 10 3/mcL Low 150-450 [facility] ([place]) Comment on above: Performed By: #### A DIFF, ANEU, CBC #### [address] [address] Platelet mean volume (Bld) [Entitic vol] 8.3 fL Normal 6.4-10.5 [facility] ([place]) Comment on above: Performed By: #### A DIFF, ANEU, CBC #### [place] [address] RBC 4.57 10 6/mcL Normal 4.50-6.00 [facility] ([place]) Comment on above: Performed By: #### A DIFF, ANEU, CBC #### [address] [address] WBC 4.6 10 3/mcL Normal 4.5-10.8 [facility] ([place]) Comment on above: Performed By: #### A DIFF, ANEU, CBC #### [address] [address] LABORATORYOrdered By: SYSTEM SYSTEM on 12-18-2022 Basophils (Bld) [#/Vol] 0.0 103/mcL Invalid Interpretation Code 0.0 - 0.3 10^3/mcL AH Workflow SS Basophils/100 WBC (Bld) 0.9 % Invalid Interpretation Code 0.0 - 2.5 % AH Workflow SS Eosinophils (Bld) [#/Vol] 0.2 103/mcL Invalid Interpretation Code 0.0 - 0.7 10^3/mcL AH Workflow SS Eosinophils/100 WBC (Bld) 3.6 % Invalid Interpretation Code 0.0 - 6.0 % Workflow SS Erythrocyte distribution width (RBC) [Ratio] 14.2 % Invalid Interpretation Code 11.5 - 15.5 % AH Workflow SS Hematocrit (Bld) [Volume fraction] 41.6 % Invalid Interpretation Code 40.0 - 52.0 % AH Workflow SS Hemoglobin (Bld) [Mass/Vol] 14.3 G/dL Invalid Interpretation Code 13.0 - 17.5 G/dL AH Workflow SS Lymphocytes (Bld) [#/Vol] 1.1 103/mcL Invalid Interpretation Code 0.9 - 4.3 10^3/mcL AH Workflow SS Lymphocytes/100 WBC (Bld) 23.6 % Invalid Interpretation Code 20.0 - 40.0 % Workflow SS MCH (RBC) [Entitic mass] 31.2 pg Invalid Interpretation Code 27.0 - 33.0 pg AH Workflow SS MCHC 34.3 G/dL Invalid Interpretation Code 32.0 - 36.0 G/dL AH Workflow SS MCV (RBC) [Entitic vol] 91.0 fL Invalid Interpretation Code 81.0 - 100.0 fL AH Workflow SS Monocytes (Bld) [#/Vol] 0.3 103/mcL Invalid Interpretation Code 0.1 - 1.4 10^3/mcL Workflow SS Monocytes/100 WBC (Bld) 6.2 % Invalid Interpretation Code 2.0 - 13.0 % AH Workflow SS Neutrophils (Bld) [#/Vol] 3.0 103/mcL Invalid Interpretation Code 2.3 - 8.1 10^3/mcL Workflow SS Neutrophils/100 WBC (Bld) 65.7 % Invalid Interpretation Code 50.0 - 75.0 % Workflow SS Platelet mean volume (Bld) [Entitic vol] 8.3 fL Invalid Interpretation Code 6.4 - 10.5 fL Workflow SS Platelets (Bld) [#/Vol] 93 103/mcL Invalid Interpretation Code 150 - 450 10^3/mcL Workflow SS RBC (Bld) [#/Vol] 4.57 106/mcL Invalid Interpretation Code 4.50 - 6.00 10^6/mcL Workflow SS WBC (Bld) [#/Vol] 4.6 103/mcL Invalid Interpretation Code 4.5 - 10.8 10^3/mcL Workflow SS LABORATORYOrdered By: Tammi mauricio on 12-18-2022 Blood Glucose Testing Reason Routine (12/18/22 8:22 AM) [facility] Work Phone: Glucose [Mass/Vol] 102 mg/dL Invalid Interpretation Code 82 - 115 mg/dL [facility] Work Phone: .Auto Diffon 12-08-2022 Basophil, Absolute 0.0 10 3/mcL Normal 0.0-0.3 [facility] ([place]) Comment on above: Performed By: #### G FR, ADIFF, BMP, CBC, ANEU #### [address] [address] Basophils/100 WBC (Bld) 0.7 % Normal 0.0-2.5 [facility] ([place]) Comment on above: Performed By: #### G FR, ADIFF, BMP, CBC, ANEU #### [address] [address] Eosinophil, Absolute 0.2 10 3/mcL Normal 0.0-0.7 [facility] ([place]) Comment on above: Performed By: #### G FR, ADIFF, BMP, CBC, ANEU #### [address] [address] Eosinophils/100 WBC (Bld) 4.5 % Normal 0.0-6.0 [facility] ([place]) Comment on above: Performed By: #### G FR, ADIFF, BMP, CBC, ANEU #### [address] [address] Lymphocyte, Absolute 1.2 10 3/mcL Normal 0.9-4.3 [facility] ([place]) Comment on above: Performed By: #### G FR, ADIFF, BMP, CBC, ANEU #### [address] [address] Lymphocytes/100 WBC (Bld) 32.5 % Normal 20.0-40.0 [facility] ([place]) Comment on above: Performed By: #### G FR, ADIFF, BMP, CBC, ANEU #### [address] [address] Monocyte, Absolute 0.2 10 3/mcL Normal 0.1-1.4 [facility] ([place]) Comment on above: Performed By: #### G FR, ADIFF, BMP, CBC, ANEU #### [address] [address] Monocytes/100 WBC (Bld) 6.0 % Normal 2.0-13.0 [facility] ([place]) Comment on above: Performed By: #### G FR, ADIFF, BMP, CBC, ANEU #### [address] [address] Neutrophils/100 WBC (Bld) 56.3 % Normal 50.0-75.0 [facility] ([place]) Comment on above: Performed By: #### G FR, ADIFF, BMP, CBC, ANEU #### [address] [address] .GFRon 12-08-2022 GFR Non- >60 Normal [facility] ([place]) Comment on above: Result Comment: GFR Population mean for , Non- Americans Ages 20-29 = 116 mL/min/1.73 sq.m. Ages 30-39 = 107 mL/min/1.73 sq.m. Ages 40-49 = 99 mL/min/1.73 sq.m. Ages 50-59 = 93 mL/min/1.73 sq.m. Ages 60-69 = 85 mL/min/1.73 sq.m. Ages 70+ = 75 mL/min/1.73 sq.m. Chronic Kidney Disease: Less than 60 mL/min/1.73 square meters End Stage Renal Disease: Less than 15 mL/min/1.73 square meters Performed By: #### G FR, ADIFF, BMP, CBC, ANEU #### [address] [address] GFR >60 Normal [facility] ([place]) Comment on above: Result Comment: GFR Population mean for , Non- Americans Ages 20-29 = 116 mL/min/1.73 sq.m. Ages 30-39 = 107 mL/min/1.73 sq.m. Ages 40-49 = 99 mL/min/1.73 sq.m. Ages 50-59 = 93 mL/min/1.73 sq.m. Ages 60-69 = 85 mL/min/1.73 sq.m. Ages 70+ = 75 mL/min/1.73 sq.m. Chronic Kidney Disease: Less than 60 mL/min/1.73 square meters End Stage Renal Disease: Less than 15 mL/min/1.73 square meters Performed By: #### G FR, ADIFF, BMP, CBC, ANEU #### [address] [address] .NEUABSon 12-08-2022 Neutrophil, Absolute 2.1 10 3/mcL Low 2.3-8.1 [facility] ([place]) Comment on above: Performed By: #### G FR, ADIFF, BMP, CBC, ANEU #### [address] [address] BMPon 12-08-2022 BUN/Creatinine Ratio 13.1 ratio Normal 10.0-22.0 [facility] ([place]) Comment on above: Performed By: #### G FR, ADIFF, BMP, CBC, ANEU #### [place] [address] Calcium [Mass/Vol] 9.5 mg/dL Normal 8.7-10.4 [facility] ([place]) Comment on above: Performed By: #### G FR, ADIFF, BMP, CBC, ANEU #### [place] [address] Chloride [Moles/Vol] 104 mmol/L Normal 98-110 [facility] ([place]) Comment on above: Performed By: #### G FR, ADIFF, BMP, CBC, ANEU #### [place] [address] CO2 [Moles/Vol] 30 mmol/L Normal 22-32 [facility] ([place]) Comment on above: Performed By: #### G FR, ADIFF, BMP, CBC, ANEU #### [address] [address] Creatinine [Mass/Vol] 0.99 mg/dL Normal 0.60-1.40 [facility] ([place]) Comment on above: Performed By: #### G FR, ADIFF, BMP, CBC, ANEU #### [address] [address] Electrolyte Balance 7.0 mEq/L Normal 4.0-15.0 [facility] ([place]) Comment on above: Performed By: #### G FR, ADIFF, BMP, CBC, ANEU #### [address] [address] Glucose [Mass/Vol] 85 mg/dL Normal 82-115 [facility] ([place]) Comment on above: Performed By: #### G FR, ADIFF, BMP, CBC, ANEU #### [place] [address] Potassium [Moles/Vol] 4.6 mmol/L Normal 3.5-5.0 [facility] ([place]) Comment on above: Performed By: #### G FR, ADIFF, BMP, CBC, ANEU #### [place] [address] Sodium [Moles/Vol] 141 mmol/L Normal 136-145 [facility] ([place]) Comment on above: Performed By: #### G FR, ADIFF, BMP, CBC, ANEU #### [place] [address] Urea nitrogen [Mass/Vol] 13.0 mg/dL Normal 8.0-22.0 [facility] ([place]) Comment on above: Performed By: #### G FR, ADIFF, BMP, CBC, ANEU #### [place] [address] CBCon 12-08-2022 Erythrocyte distribution width (RBC) [Ratio] 14.2 % Normal 11.5-15.5 [facility] ([place]) Comment on above: Performed By: #### G FR, ADIFF, BMP, CBC, ANEU #### [place] [address] Hematocrit (Bld) [Volume fraction] 40.0 % Normal 40.0-52.0 [facility] ([place]) Comment on above: Performed By: #### G FR, ADIFF, BMP, CBC, ANEU #### [place] [address] Hgb 13.5 G/dL Normal 13.0-17.5 [facility] ([place]) Comment on above: Performed By: #### G FR, ADIFF, BMP, CBC, ANEU #### [place] [address] MCH (RBC) [Entitic mass] 30.8 pg Normal 27.0-33.0 [facility] ([place]) Comment on above: Performed By: #### G FR, ADIFF, BMP, CBC, ANEU #### [place] [address] MCHC 33.7 G/dL Normal 32.0-36.0 [facility] ([place]) Comment on above: Performed By: #### Brea FR, ADIFF, BMP, CBC, ANEU #### [place] [address] MCV (RBC) [Entitic vol] 91.3 fL Normal 81.0-100.0 A [facility] ([place]) Comment on above: Performed By: #### G FR, ADIFF, BMP, CBC, ANEU #### [place] [address] Platelet 75 10 3/mcL Low 150-450 [facility] ([place]) Comment on above: Performed By: #### Brea FR, ADIFF, BMP, CBC, ANEU #### [place] [address] Platelet mean volume (Bld) [Entitic vol] 8.1 fL Normal 6.4-10.5 [facility] ([place]) Comment on above: Performed By: #### Brea FR, ADIFF, BMP, CBC, ANEU #### [place] [address] RBC 4.38 10 6/mcL Low 4.50-6.00 [facility] ([place]) Comment on above: Performed By: #### Brea FR, ADIFF, BMP, CBC, ANEU #### [place] [address] WBC 3.7 10 3/mcL Low 4.5-10.8 [facility] ([place]) Comment on above: Performed By: #### G FR, ADIFF, BMP, CBC, ANEU #### [place] [address] LABORATORYOrdered By: SYSTEM SYSTEM on 05-09-2022 Basophils (Bld) [#/Vol] 0.0 103/mcL Invalid Interpretation Code 0.0 - 0.3 10^3/mcL AH Workflow SS Basophils/100 WBC (Bld) 0.8 % Invalid Interpretation Code 0.0 - 2.5 % AH Workflow SS Calcium [Mass/Vol] 9.5 mg/dL Invalid Interpretation Code 8.7 - 10.4 mg/dL ADM SS Chloride [Moles/Vol] 101 mmol/L Invalid Interpretation Code 98 - 110 mEq/L ADM SS CO2 [Moles/Vol] 28 mmol/L Invalid Interpretation Code 22 - 32 mEq/L ADM SS Creatinine [Mass/Vol] 0.86 mg/dL Invalid Interpretation Code 0.60 - 1.40 mg/dL ADM SS Electrolyte Balance 6.0 mEq/L Invalid Interpretation Code 4.0 - 15.0 mEq/L ADM SS Eosinophils (Bld) [#/Vol] 0.3 103/mcL Invalid Interpretation Code 0.0 - 0.7 10^3/mcL Workflow SS Eosinophils/100 WBC (Bld) 7.6 % Invalid Interpretation Code 0.0 - 6.0 % Workflow SS Erythrocyte distribution width (RBC) [Ratio] 13.9 % Invalid Interpretation Code 11.5 - 15.5 % Workflow SS GFR/1.73 sq M.predicted among blacks MDRD (S/P/Bld) [Vol rate/Area] ml/min/1.73sqm Invalid Interpretation Code Chemistry S GFR/1.73 sq M.predicted among non-blacks MDRD (S/P/Bld) [Vol rate/Area] ml/min/1.73sqm Invalid Interpretation Code Chemistry S Glucose [Mass/Vol] 273 mg/dL Invalid Interpretation Code 82 - 115 mg/dL ADM SS HbA1c (Bld) [Mass fraction] 8.5 % Invalid Interpretation Code 4.0 - 6.0 % Auto Chem SS Hematocrit (Bld) [Volume fraction] 40.4 % Invalid Interpretation Code 40.0 - 52.0 % Workflow SS Hemoglobin (Bld) [Mass/Vol] 14.0 G/dL Invalid Interpretation Code 13.0 - 17.5 G/dL Workflow SS Lymphocytes (Bld) [#/Vol] 1.1 103/mcL Invalid Interpretation Code 0.9 - 4.3 10^3/mcL Workflow SS Lymphocytes/100 WBC (Bld) 27.9 % Invalid Interpretation Code 20.0 - 40.0 % Workflow SS MCH (RBC) [Entitic mass] 30.6 pg Invalid Interpretation Code 27.0 - 33.0 pg Workflow SS MCHC 34.6 G/dL Invalid Interpretation Code 32.0 - 36.0 G/dL AH Workflow SS MCV (RBC) [Entitic vol] 88.4 fL Invalid Interpretation Code 81.0 - 100.0 fL AH Workflow SS Monocytes (Bld) [#/Vol] 0.3 103/mcL Invalid Interpretation Code 0.1 - 1.4 10^3/mcL AH Workflow SS Monocytes/100 WBC (Bld) 7.5 % Invalid Interpretation Code 2.0 - 13.0 % AH Workflow SS Neutrophils (Bld) [#/Vol] 2.2 103/mcL Invalid Interpretation Code 2.3 - 8.1 10^3/mcL AH Workflow SS Neutrophils/100 WBC (Bld) 56.2 % Invalid Interpretation Code 50.0 - 75.0 % AH Workflow SS Platelet mean volume (Bld) [Entitic vol] 9.0 fL Invalid Interpretation Code 6.4 - 10.5 fL AH Workflow SS Platelets (Bld) [#/Vol] 84 103/mcL Invalid Interpretation Code 150 - 450 10^3/mcL AH Workflow SS Potassium [Moles/Vol] 4.5 mmol/L Invalid Interpretation Code 3.5 - 5.0 mEq/L ADM SS RBC (Bld) [#/Vol] 4.57 106/mcL Invalid Interpretation Code 4.50 - 6.00 10^6/mcL AH Workflow SS Sodium [Moles/Vol] 135 mmol/L Invalid Interpretation Code 136 - 145 mEq/L ADM SS Urea nitrogen [Mass/Vol] 12.0 mg/dL Invalid Interpretation Code 8.0 - 22.0 mg/dL AH ADM SS Urea nitrogen/Creatinine [Mass ratio] 14.0 ratio Invalid Interpretation Code 10.0 - 22.0 ratio AH ADM SS WBC (Bld) [#/Vol] 3.9 103/mcL Invalid Interpretation Code 4.5 - 10.8 10^3/mcL Workflow SS Basic Metabolic Panelon 07-0 -2021 Calcium [Mass/Vol] 9.7 mg/dL Normal 8.4-10.4 [facility] Comment on above: Performed By: #### H ELADIO PEREZ3 #### [facility] [address] [place] [address] Glucose [Mass/Vol] 143 mg/dL High 70-100 [facility] Comment on above: Performed By: #### ELADIO PARSON3 #### [facility] [address] [place], [place] Urea nitrogen [Mass/Vol] 9 mg/dL Normal 7-17 [facility] Comment on above: Performed By: #### H CHRIS BMP3 #### [facility] [address] [place], [place] Anion gap [Moles/Vol] 11 mmol/L Normal 3-13 [facility] Comment on above: Performed By: #### H CHRIS BMP3 #### [facility] [address] [place], [place] CO2 [Moles/Vol] 24 mmol/L Normal 22-30 [facility] Comment on above: Performed By: #### H CHRIS BMP3 #### [facility] [address] [place], [place] Creatinine [Mass/Vol] 0.92 mg/dL Normal 0.52-1.25 [facility] Comment on above: Performed By: #### H CHRIS BMP3 #### [facility] [address], [place] GFR/1.73 sq M.predicted among blacks MDRD (S/P/Bld) [Vol rate/Area] mL/min/{1.73_m2} Normal >60 [facility] Comment on above: Performed By: #### H CHRIS BMP3 #### [facility] [address], [place] GFR/1.73 sq M.predicted among non-blacks MDRD (S/P/Bld) [Vol rate/Area] 89.4 mL/min/{1.73_m2} Normal >60 [facility] Comment on above: Result Comment: KDIG O guidelines provide the following GFR categories: Stage GFR(ml/min/1.73 m2) Terms G1 >=90 Normal or high G2 60-89 Mildly decreased* G3a 45-59 Mildly to moderately decreased G3b 30-44 Moderately to severely decreased G4 15-29 Severely decreased G5 <15 Kidney failure *Relative to young adult level. In the absence of evidence of kidney damage, neither GFR category G1 nor G2 fulfill the criteria for CKD. The CKD-EPI equation is validated in individuals 18 years of age and older. Currently the best equation for estimating glomerular filtration rate (GFR) from serum creatinine in children is the Bedside Padilla equation. It is less accurate in patients with extremes of muscle mass, restriction of dietary protein, ingestion of creatine, extra-renal metabolism of creatinine, or treatment with medications that affect renal tubular creatinine secretion. Performed By: #### H CHRIS, BMP3 #### [facility] [address] [place], [place] Potassium [Moles/Vol] 4.2 mmol/L Normal 3.5-5.1 [facility] Comment on above: Performed By: #### H CHRIS, BMP3 #### [facility] [address] [place], [place] Sodium [Moles/Vol] 140 mmol/L Normal 135-145 [facility] Comment on above: Performed By: #### H CHRIS, BMP3 #### [facility] [address] [place], [place] Chloride [Moles/Vol] 105 mmol/L Normal 98-107 [facility] Comment on above: Performed By: #### [facility], BMP[facility] #### [facility] [address] [place], [place] Anion gap [Moles/Vol] 11 mmol/L 3 - 13 mmol/L [facility] Calcium [Mass/Vol] 9.7 mg/dL 8.4 - 10. 4 mg/dL [facility] Chloride [Moles/Vol] 105 mmol/L 98 - 10 7 mmol/L [facility] CO2 [Moles/Vol] 24 mmol/L 22 - 30 mmol/L [facility] Creatinine [Mass/Vol] 0.92 mg/dL 0.52 - 1.25 mg/dL [facility] EGFR IF NonAfrican Mongolian 89.4 mL/min >60 [facility] Comment on above: KDIGO guidelines pro vide the following GFR categories: Stage GFR(ml/min/1.73 m2) Terms G1 >=90 Normal or high G2 60-89 Mildly decreased* G3a 45-59 Mildly to moderately decreased G3b 30-44 Moderately to severely decreased G4 15-29 Severely decreased G5 <15 Kidney failure *Relative to young adult level. In the absence of evidence of kidney damage, neither GFR category G1 nor G2 fulfill the criteria for CKD. The CKD-EPI equation is validated in individuals 18 years of age and older. Currently the best equation for estimating glomerular filtration rate (GFR) from serum creatinine in children is the Bedside Padilla equation. It is less accurate in patients with extremes of muscle mass, restriction of dietary protein, ingestion of creatine, extra-renal metabolism of creatinine, or treatment with medications that affect renal tubular creatinine secretion. GFR/1.73 sq M.predicted among blacks MDRD (S/P/Bld) [Vol rate/Area] mL/min/{1.73_m2} >60 mL/min [facility] Glucose [Mass/Vol] 143 mg/dL High 70 - 100 mg/dL [facility] Interpretation and review of laboratory results Abnormal [facility] Potassium [Moles/Vol] 4.2 mmol/L 3.5 - 5.1 mmol/L [facility] Sodium [Moles/Vol] 140 mmol/L 135 - 145 mmol/L [facility] Urea nitrogen (BldV) [Mass/Vol] 9 mg/dL 7 - 17 mg/dL [facility] Test Performed by [id number] [place] [address] LAB [facility] CBCon 11-28-2021 Hematocrit (Bld) [Volume fraction] 41.6 % 40.0 - 52.0 % [facility] Hemoglobin (Bld) [Mass/Vol] 14.1 g/dL 13.0 - 18.0 g/dL [facility] Interpretation and review of laboratory results Abnormal [facility] MCH (RBC) [Entitic mass] 30.9 pg 26. 0 - 34.0 pg [facility] MCHC (RBC) [Mass/Vol] 34.0 % 32.0 - 36.0 % [facility] MCV (RBC) [Entitic vol] 91.1 fL 80.0 - 98.0 fL [facility] Platelet distribution width (Bld) [Ratio] 15.1 % High 11.5 - 14.5 % [facility] Platelet mean volume (Bld) [Entitic vol] 8.2 fL 7.4 - 12.4 fL [facility] Comment on above: MPV is a calculated measurement using platelet volume ratio. Platelets (Bld) [#/Vol] 146 10*3/uL 140 - 440 10*3/uL [facility] RBC (Bld) [#/Vol] 4.57 10*6/uL 4.40 - 5.90 10*6/uL [facility] WBC (Bld) [#/Vol] 6.6 10*3/uL 3.6 - 10.7 10*3/uL [facility] Test Performed by [facility], [address] [place], [place] [id number] [place] [address] - [facility] LAB [facility] Glucose,Bedsideon 11-28-2021 Glucose [Mass/Vol] 133 mg/dL High 70-100 [facility] Comment on above: Result Comment: Test performed by glucose meter. Results may be 10%-15% lower than serum/plasma values. (CLIA ID [id number]) Performed By: #### B GLU #### [address] Hemogramon 11-28-2021 Erythrocyte distribution width (RBC) [Ratio] 15.1 % High 11.5-14.5 [facility] Comment on above: Performed By: #### H CHRIS BMP3 #### [address] Hematocrit (Bld) [Volume fraction] 41.6 % Normal 40.0-52.0 [facility] Comment on above: Performed By: #### H CHRIS BMP3 #### [address] Hemoglobin (Bld) [Mass/Vol] 14.1 g/dL Normal 13.0-18.0 [facility] Comment on above: Performed By: #### H CHRIS BMP3 #### [address] MCH (RBC) [Entitic mass] 30.9 pg Normal 26.0-34.0 [facility] Comment on above: Performed By: #### H CHRIS BMP3 #### [address] MCHC 34.0 % Normal 32.0-36.0 [facility] Comment on above: Performed By: #### H CHRIS BMP3 #### [address] MCV (RBC) [Entitic vol] 91.1 fL Normal 80.0-98.0 [facility] Comment on above: Performed By: #### H CHRIS BMP3 #### [facility] [address] [place], [place] Platelet mean volume (Bld) [Entitic vol] 8.2 fL Normal 7.4-12.4 [facility] Comment on above: Result Comment: MPV is a calculated measurement using platelet volume ratio. Performed By: #### H CHRIS, BMP3 #### [facility] [address] [place], [place] Platelets (Bld) [#/Vol] 146 10*3/uL Normal 140-440 [facility] Comment on above: Performed By: #### H CHRIS BMP3 #### [place] [address] [address], [place] RBC (Bld) [#/Vol] 4.57 10*6/uL Normal 4.40-5.90 [facility] Comment on above: Performed By: #### H CHRIS BMP3 #### [place] [address] [address] [place], [place] WBC (Bld) [#/Vol] 6.6 10*3/uL Normal 3.6-10.7 [facility] Comment on above: Performed By: #### H CHRIS BMP3 #### [place] [address] [address], [place] OPERATIVE REPORTon Ordered by an unspec ified provider. [facility] Op Noteon 11-28-2021 Op Note Operative note Pre-operative Diagnosis: Pelvic pain, Urgency Post-operative Diagnosis: Same Operation- Cystoscopy. Surgeon- Julián Smalls MD [employer] Sales Professional. Hai Calero MD Anesthesia- General. Meds. Ancef 3 gm IVPB Procedure Details The risks, benefits, complications, treatment options, and expected outcomes were discussed with the patient. The patient concurred with the proposed plan, giving informed consent. Cystoscopy was performed without incident. The patient was placed in the supine position, prepped with Betadine, and draped in the usual sterile fashion. Lidocaine jelly was instilled into the urethra to effect local anesthesia. The sheathed digital flexible cystoscope was passed into the bladder without incident Findings: Urethra: normal without stricture Prostate: min. mild enlargement.min to no degree of obstruction to bladder outlet Bladder: No tumors, diverticulae, stones, or mucosal abnormalities were seen Ureteral orifices: Normal position and effluxing clear urine. Specimens: None Complications: None. Patient tolerated the procedure well Julián Smalls M.D. Normal [facility] POCT GlucoseOrdered By: Dom Lindsay on 11-28-2021 Glucose [Mass/Vol] 133 mg/dL High 70 - 100 mg/dL [facility] Work Phone: Comment on above: Test performed by [employer] ucose meter. Results may be 10%-15% lower than serum/plasma values. (CLIA ID [id number]) Interpretation and review of laboratory results Abnormal [facility] Work Phone: [facility] Work Phone: POCT Glucoseon 11-28-2021 Test Performed by [facility], [address] [place] [id number] [place] [address] LAB LABORATORYOrdered By: SYSTEM SYSTEM on 10-23-2021 Albumin BCP dye [Mass/Vol] 4.0 G/dL Invalid Interpretation Code 3.2 - 4.8 G/dL ADM SS Albumin/Globulin [Mass ratio] 1.2 {ratio} Invalid Interpretation Code 0.9 - 1.6 ratio ADM SS ALP [Catalytic activity/Vol] 51 U/L Invalid Interpretation Code 38 - 126 U/L ADM SS ALT No additional P-5'-P [Catalytic activity/Vol] 31 U/L Invalid Interpretation Code 12 - 55 U/L ADM SS AST [Catalytic activity/Vol] 26 U/L Invalid Interpretation Code 8 - 34 U/L ADM SS Basophils (Bld) [#/Vol] 0.1 103/mcL Invalid Interpretation Code 0.0 - 0.3 10^3/mcL Workflow SS Basophils/100 WBC (Bld) 0.8 % Invalid Interpretation Code 0.0 - 2.5 % Workflow SS Bilirubin [Mass/Vol] 1.00 mg/dL Invalid Interpretation Code 0.20 - 1.20 mg/dL ADM SS Calcium [Mass/Vol] 9.7 mg/dL Invalid Interpretation Code 8.7 - 10.4 mg/dL ADM SS Chloride [Moles/Vol] 106 mmol/L Invalid Interpretation Code 98 - 110 mEq/L ADM SS CO2 [Moles/Vol] 24 mmol/L Invalid Interpretation Code 22 - 32 mEq/L ADM SS Creatinine [Mass/Vol] 0.93 mg/dL Invalid Interpretation Code 0.60 - 1.40 mg/dL ADM SS Electrolyte Balance 9.0 mEq/L Invalid Interpretation Code 4.0 - 15.0 mEq/L ADM SS Eosinophil, Absolute 0.1 103/mcL Invalid Interpretation Code 0.0 - 0.7 10^3/mcL Workflow SS Eosinophils/100 WBC (Bld) 1.5 % Invalid Interpretation Code 0.0 - 6.0 % Workflow SS Erythrocyte distribution width (RBC) [Ratio] 14.8 % Invalid Interpretation Code 11.5 - 15.5 % Workflow SS GFR/1.73 sq M.predicted among blacks MDRD (S/P/Bld) [Vol rate/Area] ml/min/1.73sqm Invalid Interpretation Code ADM SS GFR/1.73 sq M.predicted among non-blacks MDRD (S/P/Bld) [Vol rate/Area] ml/min/1.73sqm Invalid Interpretation Code ADM SS Globulin 3.3 G/dL Invalid Interpretation Code 1.5 - 3.8 G/dL ADM SS Glucose [Mass/Vol] 169 mg/dL Invalid Interpretation Code 82 - 115 mg/dL ADM SS Hematocrit (Bld) [Volume fraction] 41.7 % Invalid Interpretation Code 40.0 - 52.0 % Workflow SS Hgb 14.3 G/dL Invalid Interpretation Code 13.0 - 17.5 G/dL Workflow SS Lymphocyte, Absolute 1.8 103/mcL Invalid Interpretation Code 0.9 - 4.3 10^3/mcL Workflow SS Lymphocytes/100 WBC (Bld) 27.7 % Invalid Interpretation Code 20.0 - 40.0 % Workflow SS MCH (RBC) [Entitic mass] 31.2 pg Invalid Interpretation Code 27.0 - 33.0 pg Workflow SS MCHC 34.4 G/dL Invalid Interpretation Code 32.0 - 36.0 G/dL Workflow SS MCV (RBC) [Entitic vol] 90.6 fL Invalid Interpretation Code 81.0 - 100.0 fL AH Workflow SS Monocyte distribution width Auto (Bld) [Entitic vol] 18.62 Invalid Interpretation Code 0.00 - 20.00 AH Workflow SS Comment on above: Result Comment: For ED adult patients suspected of sepsis, MDW<=20.0 does not rule out sepsis or risk of sepsis Monocyte, Absolute 0.4 103/mcL Invalid Interpretation Code 0.1 - 1.4 10^3/mcL AH Workflow SS Monocytes/100 WBC (Bld) 5.4 % Invalid Interpretation Code 2.0 - 13.0 % AH Workflow SS Neutrophil, Absolute 4.2 103/mcL Invalid Interpretation Code 2.3 - 8.1 10^3/mcL AH Workflow SS Neutrophils/100 WBC (Bld) 64.6 % Invalid Interpretation Code 50.0 - 75.0 % AH Workflow SS Platelet 113 103/mcL Invalid Interpretation Code 150 - 450 10^3/mcL AH Workflow SS Platelet mean volume (Bld) [Entitic vol] 8.2 fL Invalid Interpretation Code 6.4 - 10.5 fL AH Workflow SS Potassium [Moles/Vol] 3.8 mmol/L Invalid Interpretation Code 3.5 - 5.0 mEq/L AH ADM SS Protein [Mass/Vol] 7.3 G/dL Invalid Interpretation Code 5.7 - 8.2 G/dL AH ADM SS RBC 4.60 106/mcL Invalid Interpretation Code 4.50 - 6.00 10^6/mcL AH Workflow SS Sodium [Moles/Vol] 139 mmol/L Invalid Interpretation Code 136 - 145 mEq/L ADM SS Troponin I.cardiac DL <= 0.01 ng/mL [Mass/Vol] 3.36 ng/L Invalid Interpretation Code 0.00 - 54.00 ng/L AH ADM SS Urea nitrogen [Mass/Vol] 9.0 mg/dL Invalid Interpretation Code 8.0 - 22.0 mg/dL AH ADM SS Urea nitrogen/Creatinine [Mass ratio] 9.7 ratio Invalid Interpretation Code 10.0 - 22.0 ratio AH ADM SS WBC 6.6 103/mcL Invalid Interpretation Code 4.5 - 10.8 10^3/mcL Workflow SS Vital Signs Date Time Vital Sign Value Performing Clinician Facility 12-30-2024 08:59-0400 Body height 185.42 cm Misty NIX Work Phone: [facility] 12-30-2024 08:59-0400 Body mass index (BMI) [Ratio] 30.3 kg/m2 Misty Banerjee ASSOCIATE PASTOR-C Work Phone: [facility] 12-30-2024 08:59-0400 Body weight 104.32 kg Misty Banerjee ASSOCIATE PASTOR-C Work Phone: [facility] 12-30-2024 08:59-0400 Diastolic blood pressure 82 mm[Hg] Misty Banerjee ASSOCIATE PASTOR-C Work Phone: [facility] 12-30-2024 08:59-0400 Heart rate 74 /min Misty Banerjee ASSOCIATE PASTOR-C Work Phone: [facility] 12-30-2024 08:59-0400 SaO2% (BldA) [Mass fraction] 94 % Misty Banerjee ASSOCIATE PASTOR-C Work Phone: [facility] 12-30-2024 08:59-0400 Systolic blood pressure 118 mm[Hg] Misty Banerjee ASSOCIATE PASTOR-C Work Phone: [facility] 11-10-2024 10:00-0400 Diastolic blood pressure 55 mm[Hg] Misty Banerjee ASSOCIATE PASTOR-C Work Phone: [facility] 11-10-2024 10:00-0400 Heart rate 67 /min Misty Banerjee ASSOCIATE PASTOR-C Work Phone: [facility] 11-10-2024 10:00-0400 Respiratory rate 18 /min Misty Banerjee ASSOCIATE PASTOR-C Work Phone: [facility] 11-10-2024 10:00-0400 SaO2% (BldA) [Mass fraction] 97 % Misty Banerjee ASSOCIATE PASTOR-C Work Phone: [facility] 11-10-2024 10:00-0400 Systolic blood pressure 91 mm[Hg] Misty Banerjee ASSOCIATE PASTOR-C Work Phone: [facility] 11-10-2024 08:02-0400 Body height 185.42 cm Misty Banerjee ASSOCIATE PASTOR-C Work Phone: [facility] 11-10-2024 08:02-0400 Body mass index (BMI) [Ratio] 30.6 kg/m2 Mistykell Leeer ASSOCIATE PASTOR-C Work Phone: [facility] 11-10-2024 08:02-0400 Body temperature 98 [degF] Misty Banerjee ASSOCIATE PASTOR-C Work Phone: [facility] 11-10-2024 08:02-0400 Body weight 105.23 kg Misty Banerjee ASSOCIATE PASTOR-C Work Phone: [facility] 11-01-2024 14:02-0400 Body height 185.42 cm Misty Leeer ASSOCIATE PASTOR-C Work Phone: [facility] 11-01-2024 14:02-0400 Body mass index (BMI) [Ratio] 30.9 kg/m2 Misty Banerjee ASSOCIATE PASTOR-C Work Phone: [facility] 11-01-2024 14:02-0400 Body weight 106.14 kg Misty Banerjee ASSOCIATE PASTOR-C Work Phone: [facility] 11-01-2024 14:02-0400 Diastolic blood pressure 75 mm[Hg] Misty Banerjee ASSOCIATE PASTOR-C Work Phone: [facility] 11-01-2024 14:02-0400 Heart rate 82 /min Misty Banerjee ASSOCIATE PASTOR-C Work Phone: [facility] 11-01-2024 14:02-0400 SaO2% (BldA) [Mass fraction] 93 % Misty Banerjee ASSOCIATE PASTOR-C Work Phone: [facility] 11-01-2024 14:02-0400 Systolic blood pressure 113 mm[Hg] Misty Banerjee ASSOCIATE PASTOR-C Work Phone: [facility] 10-19-2024 07:38-0400 Body weight 107.04 kg Misty Leeer ASSOCIATE PASTOR-C Work Phone: [facility] 12-23-2022 12:05-0400 Body temperature 97.16 [degF] DR CLARA LLOYD MD [facility] 12-23-2022 12:05-0400 Diastolic Blood Pressure Non-Invasive [address] CLARA LLOYD MD [address] [place] [address] 12-23-2022 12:05-0400 Heart rate 62 /min DR CLARA LLOYD MD [address] 12-23-2022 12:05-0400 Respiratory rate 16 /min DR CLARA LLOYD MD [address] [place] [address] 12-23-2022 12:05-0400 Systolic Blood Pressure Non-Invasive [address] CLARA LLOYD MD [address] [place] [address] 12-23-2022 11:51-0400 Diastolic Blood Pressure Non-Invasive [address] CLARA LLOYD MD [address] 12-23-2022 11:51-0400 Heart rate 60 /min DR CLARA LLOYD MD [facility] 12-23-2022 11:51-0400 Systolic Blood Pressure Non-Invasive [address] CLARA LLOYD MD [facility] 12-23-2022 11:40-0400 Diastolic Blood Pressure Non-Invasive [address] CLARA LLOYD MD [address] [place] [address] 12-23-2022 11:40-0400 Heart rate 63 /min DR CLARA LLOYD MD [facility] 12-23-2022 11:40-0400 Mean blood pressure 84 mm[Hg] DR CLARA LLOYD MD [facility] 12-23-2022 11:40-0400 Respiratory rate 20 /min DR CLARA LLOYD MD [facility] 12-23-2022 11:40-0400 Systolic Blood Pressure Non-Invasive [address] CLARA LLOYD MD [address] [place] [address] 12-23-2022 11:25-0400 Body temperature 97.16 [degF] DR CLARA LLOYD MD [address] 12-23-2022 11:25-0400 Heart rate 64 /min DR CLARA LLOYD MD [address] [place] [address] 12-23-2022 11:25-0400 Mean blood pressure 73 mm[Hg] DR CLARA LLOYD MD [address] 12-23-2022 11:25-0400 Respiratory rate 20 /min DR CLARA LLOYD MD [address] 12-23-2022 11:10-0400 Mean blood pressure 73 mm[Hg] DR CLARA LLOYD MD [address] [place] [address] 12-23-2022 10:55-0400 Body temperature 98.06 [degF] DR CLARA LLOYD MD [address] [place] [address] 12-23-2022 10:50-0400 Respiratory Rate - Anes 11 br/min DR CLARA LLOYD MD [address] 12-23-2022 10:45-0400 Respiratory Rate - Anes 14 br/min DR CLRAA LLOYD MD [address] [place] [address] 12-23-2022 10:40-0400 Respiratory Rate - Anes 3 br/min DR CLARA LLOYD MD [address] [place] [address] 12-23-2022 09:15-0400 Body height 185.[address] CLARA LLOYD MD [address] [place] [address] 12-23-2022 09:15-0400 Body weight 100.[address] CLARA LLOYD MD [address] [place] [address] 12-23-2022 09:15-0400 Heart rate 67 /min DR CLARA LLOYD MD [facility] 12-18-2022 11:12-0400 Body temperature 96.8 [degF] DR CLARA LLOYD MD [facility] 12-18-2022 11:12-0400 Diastolic Blood Pressure Non-Invasive [address] CLARA LLOYD MD [facility] 12-18-2022 11:12-0400 Heart rate 65 /min DR CLARA LLOYD MD [address] [place] [address] 12-18-2022 11:12-0400 Respiratory rate 16 /min DR CLARA LLOYD MD [address] [place] [address] 12-18-2022 11:12-0400 Systolic Blood Pressure Non-Invasive [address] CLARA LLOYD MD [facility] 12-18-2022 10:53-0400 Body temperature 97.16 [degF] DR CLARA LLOYD MD [facility] 12-18-2022 10:53-0400 Diastolic Blood Pressure Non-Invasive [address] CLARA LLOYD MD [facility] 12-18-2022 10:53-0400 Heart rate 61 /min DR CLARA LLOYD MD [facility] 12-18-2022 10:53-0400 Respiratory rate 16 /min DR CLARA LLOYD MD [facility] 12-18-2022 10:53-0400 Systolic Blood Pressure Non-Invasive [address] CLARA LLOYD MD [facility] 12-18-2022 10:49-0400 Heart rate 66 /min DR CLARA LLOYD MD [facility] 12-18-2022 10:45-0400 Diastolic Blood Pressure Non-Invasive [address] CLARA LLOYD MD [facility] 12-18-2022 10:45-0400 Heart rate 64 /min DR CLARA LLOYD MD [facility] 12-18-2022 10:45-0400 Mean blood pressure 89 mm[Hg] DR CLARA LLOYD MD [facility] 12-18-2022 10:45-0400 Respiratory rate 20 /min DR CLARA LLOYD MD [facility] 12-18-2022 10:45-0400 Systolic Blood Pressure Non-Invasive [address] CLARA LLOYD MD [facility] 12-18-2022 10:38-0400 Mean blood pressure 89 mm[Hg] DR CLARA LLOYD MD [facility] 12-18-2022 10:29-0400 Body temperature 96.8 [degF] DR CLARA LLOYD MD [facility] 12-18-2022 10:25-0400 Respiratory Rate - Anes 5 br/min DR CLARA LLOYD MD [facility] 12-18-2022 10:20-0400 Respiratory Rate - Anes 12 br/min DR CLARA LLOYD MD [facility] 12-18-2022 10:15-0400 Respiratory Rate - Anes 0 br/min DR CLARA LLOYD MD [facility] 12-18-2022 08:22-0400 Body height 185.[address] CLARA LLOYD MD [facility] 12-18-2022 08:22-0400 Body weight 101.[address] CLARA LLOYD MD [facility] 12-18-2022 08:22-0400 Heart rate 65 /min DR CLARA LLOYD MD [facility] 05-09-2022 08:42-[address] CLARA LLOYD MD [facility] 05-09-2022 08:42-[address] CLARA Madison MD [facility] 05-09-2022 08:42-0500 Body height [address] CLARA LLOYD MD [facility] 05-09-2022 08:42-0500 Body temperature 96.62 [degF] DR CLARA LLOYD MD [facility] 05-09-2022 08:42-0500 Body weight 117.[address] CLARA LLOYD MD [facility] 05-09-2022 08:42-0500 Diastolic Blood Pressure Non-Invasive [address] CLARA LLOYD MD [facility] 05-09-2022 08:42-0500 Heart rate 80 /min DR CLARA LLOYD MD [facility] 05-09-2022 08:42-0500 Systolic Blood Pressure Non-Invasive [address] CLARA LLOYD MD [facility] 11-28-2021 16:15-0400 Diastolic blood pressure 84 mm[Hg] Julián Smalls MD Work Phone: [facility] 11-28-2021 16:15-0400 Heart rate 79 /min Julián Smalls MD Work Phone: [facility] 11-28-2021 16:15-0400 Respiratory rate 14 /min Julián Smalls MD Work Phone: [facility] 11-28-2021 16:15-0400 SaO2% (BldA) [Mass fraction] 90 % Julián Smalls MD Work Phone: [facility] 11-28-2021 16:15-0400 Systolic blood pressure 119 mm[Hg] Julián Smalls MD Work Phone: [facility] 11-28-2021 15:15-0400 Body temperature 97.2 [degF] Julián Smalls MD Work Phone: [facility] 11-28-2021 13:28-0400 Body height 186.7 cm Julián Smalls MD Work Phone: [facility] 11-28-2021 13:28-0400 Body mass index (BMI) [Ratio] 33.58 kg/m2 Julián Smalls MD Work Phone: [facility] 11-28-2021 13:28-0400 Body weight 117.03 kg Julián Smalls MD Work Phone: [facility] 10-23-2021 19:41-0400 Body temperature 98.96 [degF] MARIANNA TAI MD [facility] 10-23-2021 19:41-0400 Body weight 117 kg MARIANNA TAI MD [facility] 10-23-2021 19:41-0400 Diastolic blood pressure 96 mm[Hg] MARIANNA TAI MD [facility] 10-23-2021 19:41-0400 Heart rate 103 /min MARIANNA TAI MD [facility] 10-23-2021 19:41-0400 Respiratory rate 18 /min MARIANNA TAI MD [facility] 10-23-2021 19:41-0400 Systolic blood pressure 159 mm[Hg] MARIANNA TAI MD [facility] Encounters Encounter Date Encounter Type Care Provider Facility Start: 01-26-2025 belinda Woodruff ity:[facility] Start: 01-18-2025 End: 01-18-2025 Patient encounter procedure Werner Pérez DO [facility] Work Phone: Start: 01-18-2025 End: 01-18-2025 ambulatory Misty Banerjee ASSOCIATE PASTOR-C Work Phone: -[facility] Start: 12-30-2024 End: 12-30-[address] Sergey Elliott MD -[facility] Work Phone: Start: 12-30-2024 End: 12-30-2024 ambulatory Misty Banerjee ASSOCIATE PASTOR-C Work Phone: -[facility] Start: 12-01-2024 ambulatory Misty Banerjee Facil ity:[facility] Start: 11-29-2024 ambulatory SERGEY ELLIOTT Facility: [id number] Start: 11-29-2024 End: 11-29-2024 Subsequent hospital visit by physician [facility] Comment on above: Splenomegaly, not el sewhere classified [R16.1] Start: 11-10-2024 End: 11-10-2024 ambulatory Misty Banerjee ASSOCIATE PASTOR-C Work Phone: [facility] Work Phone: Start: 11-10-2024 End: 11-10-2024 Patient encounter procedure Werner Pérez DO -Cat Scan [facility] Work Phone: Start: 11-10-2024 End: 11-10-2024 ambulatory Werner Pérez Facility:[facility] Start: 11-01-2024 End: 11-01-2024 ambulatory Misty Banerjee ASSOCIATE PASTOR-C Work Phone: [facility] Work Phone: Start: 11-01-2024 End: 11-01-[address] Sergey Elliott MD -Laboratory Work Phone: Start: 11-01-2024 End: 11-01-[address] Sergey Elliott MD -[facility] Work Phone: Start: 11-01-2024 End: 11-01-2024 ambulatory Misty Banerjee ASSOCIATE PASTOR-C Work Phone: [facility] Work Phone: Start: 11-01-2024 End: 11-01-2024 ambulatory Misty Banerjee Facility:[facility] Start: 10-19-2024 End: 10-19-2024 Patient encounter procedure Werner Pérez DO -[facility] Work Phone: Start: 10-19-2024 End: 10-19-2024 ambulatory Misty Banerjee ASSOCIATE PASTOR-C Work Phone: [facility] Work Phone: Start: 08-17-2024 End: 08-17-2024 ambulatory Misty Banerjee ASSOCIATE PASTOR-C Work Phone: [facility] Work Phone: Start: 08-17-2024 End: 08-17-2024 Patient encounter procedure Werner Pérez DO -Laboratory Work Phone: Start: 08-17-2024 End: 08-17-2024 Patient encounter procedure Werner Pérez DO -[facility] Work Phone: Start: 08-17-2024 End: 08-17-2024 ambulatory Wernermagalie Pérez Facility:[facility] Start: 08-17-2024 End: 08-17-2024 ambulatory Werner Pérez Facility:[facility] Start: 05-10-2024 End: 05-14-2024 ambulatory MISTY BANERJEE APRN-PREPARED FOODS TEAM LEADER Facility:A Start: 03-07-2024 End: 03-07-2024 ambulatory MICHAEL FRANCIS-Marlys Facility:A Start: 03-07-2024 End: 03-07-2024 Patient encounter procedure MICHAEL YOON PA-C [facility] Start: 03-04-2024 End: 03-08-2024 ambulatory MISTY BANERJEE APRN-PREPARED FOODS TEAM LEADER Facility:[facility] Start: 03-04-2024 End: 03-08-2024 Outreach Lab MISTY BANERJEE APRN-PREPARED FOODS TEAM LEADER [facility] Start: 11-06-2023 ambulatory MICHAEL Moses lity:A Start: 09-14-2023 End: 09-15-2023 ambulatory MISTY BANERJEE [facility] Start: 08-31-2023 End: 08-31-2023 ambulatory MICHAEL YOON PA-C Facility:A Start: 07-14-2023 End: 07-14-2023 ambulatory MICHAEL YOON PA-C Facility:A Start: 04-10-2023 End: 04-10-2023 ambulatory MISTY BANERJEE APRN-PREPARED FOODS TEAM LEADER Facility:A Start: 03-18-2023 End: 03-22-[address] CLIFF MACHUCA MD Facility:A Start: 12-23-2022 End: 12-23-[address] CLARA LLOYD MD Facility:A Start: 12-23-2022 End: 12-23-[address] CLARA LLOYD MD [facility] Start: 12-18-2022 End: 12-18-[address] CLARA LLOYD MD Facility:A Start: 12-18-2022 End: 12-18-[address] CLARA LLOYD MD [facility] Start: 12-08-2022 End: 12-08-[address] CLARA LLOYD MD Facility:A Start: 06-23-2022 End: 06-23-2022 Patient encounter procedure ELDER PAK PENCIL INSPECTOR-PREPARED FOODS TEAM LEADER [facility] Start: 05-30-2022 End: 05-30-2022 Patient encounter procedure WASHINGTON REARDON MD [facility] Start: 05-09-2022 End: 05-09-[address] CLARA LLOYD MD [facility] Start: 11-28-2021 End: 11-28-2021 Subsequent hospital visit by physician Julián Smalls MD Work Phone: [facility] General Surgery Comment on above: Arrived Start: 10-23-2021 End: 10-24-2021 Emergency department patient visit MARIANNA TAI MD [facility] Procedures Date Procedure Procedure Detail Performing Clinician Start: 11-29-2024 Dup-scan artl cliff abdl/pel/scrot&/rpr orgn com Ankita Rincon MD Work Phone: Start: 11-29-2024 US ABD LIVER VASCULAR Ankita Rincon MD Work Phone: Start: 11-10-2024 Biopsy/Inj or Needle Placement Misty Banerjee ASSOCIATE PASTOR-C Work Phone: Start: 08-17-2024 Albumin/Globulin ratio Misty Banerjee ASSOCIATE PASTOR-C Work Phone: Start: 08-17-2024 Ojnyf-9-Xiijerlfhcd measurement Katya Banerjee ASSOCIATE PASTOR-C Work Phone: Comment on above: [facility] Electrochemiluminescen ce Immunoassay(ECLIA)Values obtained with different assay methods or kits cannotbe used interchangeably. Results cannot be interpreted asabsolute evidence of the presence or absence of malignantdisease.This test is not interpretable in females. Start: 08-17-2024 Antibody measurement Misty Banerjee ASSOCIATE PASTOR-C Work Phone: Comment on above: The atypical pANCA pattern has been obse rved in asignificant percentage of patients with ulcerative colitis,primary sclerosing cholangitis and autoimmune hepatitis. Start: 08-17-2024 Antibody to centromere measurement Bronwyn Banerjee ASSOCIATE PASTOR-C Work Phone: Comment on above: Previous reported result: TNP AIEdited b y: INFCE on 08/19/24:1508 AMENDED REPORT 08/19/24 1508 ANTI-CENT B previously reported as: Test not performed Start: 08-17-2024 Antibody to extractable nuclear antigen measurement Misty Banerjee ASSOCIATE PASTOR-C Work Phone: Comment on above: Previous reported result: TNP AIEdited b y: INFCE on 08/19/24:1508 AMENDED REPORT 08/19/24 1508 JAY Ab previously reported as: Test not performed Start: 08-17-2024 Antibody to GEORGIANA-1 measurement Misty mulleniner ASSOCIATE PASTOR-C Work Phone: Comment on above: Previous reported result: TNP AIEdited b y: INFCE on 08/19/24:1508 AMENDED REPORT 08/19/24 1508 ANTI-GEORGIANA previously reported as: Test not performed Start: 08-17-2024 Antibody to lupus La protein measurement Misty Leeer ASSOCIATE PASTOR-C Work Phone: Comment on above: Previous reported result: TNP AIEdited b y: INFCE on 08/19/24:1508 AMENDED REPORT 08/19/24 1508 Anti-SS-B previously reported as: Test not performed Start: 08-17-2024 Antibody to SS-A measurement Misty Kwan teiner ASSOCIATE PASTOR-C Work Phone: Comment on above: Previous reported result: TNP AIEdited b y: INFCE on 08/19/24:1508 AMENDED REPORT 08/19/24 1508 Anti-SS-A previously reported as: Test not performed Start: 08-17-2024 Autoantibody measurement Misty Lee ASSOCIATE PASTOR-C Work Phone: Comment on above: Previous reported result: TNP AIEdited b y: INFCE on 08/19/24:1508 AMENDED REPORT 08/19/24 1508 ANTICHROMATIN previously reported as: Test not performed Start: 08-17-2024 Ceruloplasmin measurement Misty Stei [facility] ASSOCIATE PASTOR-C Work Phone: Start: 08-17-2024 Copper measurement, serum Misty ramirez ASSOCIATE PASTOR-C Work Phone: Comment on above: Detection Limit = 5 Start: 08-17-2024 Endomysial antibody IgA level Misty Banerjee ASSOCIATE PASTOR-C Work Phone: Start: 08-17-2024 Hepatitis A virus antibody, IgM type Misty Banerjee ASSOCIATE PASTOR-C Work Phone: Comment on above: A negative anti-HAV IgM result suggests no recent orcurrent HAV infection. Start: 08-17-2024 Hepatitis B core antibody measurement, IgM type Misty Banerjee ASSOCIATE PASTOR-C Work Phone: Start: 08-17-2024 Hepatitis C antibody measurement Nilesh Banerjee ASSOCIATE PASTOR-C Work Phone: Start: 08-17-2024 Immunoglobulin G subclass, G4 measurement Misty Banerjee ASSOCIATE PASTOR-C Work Phone: Start: 08-17-2024 Immunoglobulin M measurement Misty aguero ASSOCIATE PASTOR-C Work Phone: Start: 08-17-2024 Measurement of haptoglobin Misty Mora ASSOCIATE PASTOR-C Work Phone: Comment on above: Performed at: [facility] [id number] Director: Cesar Bruno PhD, Phone: [phone] at: [facility] [id number] Director: Lucrecia Meza MD, Phone: [phone] Start: 08-17-2024 CHANNELER RUNNER antibody measurement Misty bellamy ASSOCIATE PASTOR-C Work Phone: Comment on above: Previous reported result: TNP AIEdited b y: INFCE on 08/19/24:1508 AMENDED REPORT 08/19/24 1508 CHANNELER RUNNER Ab previously reported as: Test not performed Start: 11-28-2021 OPERATIVE REPORT Physician Generic Start: 11-28-2021 Ecg routine ecg w/least 12 lds w/i&r Zen Steven MD Work Phone: Start: 11-28-2021 End: 11-28-2021 Basic metabolic panel calcium total Zen Steven MD Work Phone: Start: 10-13-2017 Excision of colon MARIANNA TAI MD Start: 05-25-2016 Laminectomy MARIANNA TAI MD Start: 05-25-2000 Excision of cervical intervertebral disc MARIANNA TAI MD Start: 05-25-1995 Laminectomy MARIANNA TAI MD Start: 05-25-1989 Deviated nasal septum (disorder) MARIANNA TAI MD Arthroscopic knee operation DR CLARA LLOYD MD Comment on above: right Colonoscopy normal (finding) MARIANNA TAI MD Comment on above: multiple Esophagogastroduodenoscopy D R CLARA LLOYD MD Operation on uvula DR KAMRON LLOYD MD Tonsillectomy and adenoidectomy MARIANNA TAI MD Comment on above: UVULECTOMY Plan of Treatment Date Care Activity Detail Author Start: 11-01-2035 RSV Vaccine (1 - 1-d ose 75+ series) RSV Vaccine (1 - 1-dose 75+ series) [facility] Start: 01-23-2025 Influenza vaccination Influenza Vacc ine (#1) [facility] Start: 11-28-2024 Diabetes Screening Diabetes Screenin g [facility] Start: 11-10-2024 Biopsy liver needle percutaneous NEEDLE BIOPSY OF LIVER PERQ [facility] Start: 11-10-2024 Following clinical p athway protocol [facility] Start: 11-10-[address] [facility] Start: 11-10-[address] [facility] Start: 11-10-2024 Patient discharge [facility] Start: 11-10-[address] [facility] Start: 08-17-2024 Acute hepatitis 2000 panel - Serum [facility] Start: 08-17-2024 Jhtbu-6-vfgjdlbeqpp. tumor marker [Units/volume] in Serum or Plasma [facility] Start: 08-17-2024 Angiotensin converti ng enzyme [Enzymatic activity/volume] in Serum or Plasma [facility] Start: 08-17-2024 Celiac disease screen [facility] Start: 08-17-2024 Ceruloplasmin [Mass/volume] in Serum or Plasma [facility] Start: 08-17-2024 Copper [Moles/volume ] in Serum or Plasma [facility] Start: 08-17-2024 Haptoglobin [Mass/vo lume] in Serum or Plasma [facility] Start: 08-17-2024 IgG subclass panel [Mass/volume] - Serum [facility] Start: 08-17-[address] [facility] Start: 08-17-2024 Serum immunofixation [facility] Start: 08-17-2024 Smooth muscle Ab [Presence] in Serum [facility] Start: 08-17-2024 [facility] Start: 05-25-2024 Medicare Advantage A nnual Wellness Visit Medicare Advantage Annual Wellness Visit [facility] Start: 01-24-2024 Covid-19 Vaccine ( season) Covid-19 Vaccine ( season) [facility] Start: 05-25-2023 Shingrix Vaccine (2 of 2) Deleon grix Vaccine (2 of 2) [facility] Start: 01-23-2022 Influenza vaccination Flu vaccine (# 1) [facility] Start: 2010 Shingles vaccine (1 of 2) Deleon gles vaccine (1 of 2) [facility] Start: 2005 Prostate specific an tigen measurement Prostate Cancer Screening Discussion [facility] Start: 2005 Screening for malign ant neoplasm of colon [facility] Start: 2000 Prostate specific an tigen measurement Prostate Specific Antigen (PSA) Screening or Monitoring [facility] Start: 11-01-1995 Diabetes screen Diabetes screen [facility] Start: 11-01-1995 Lipid panel Lipid Screening [facility] Start: 11-01-1979 DTaP/Tdap/Td vaccine (1 - Tdap) DTaP/Tdap/Td vaccine (1 - Tdap) [facility] Start: 11-01-1979 Urine microalbumin profile DTa P,Tdap,Td Vaccine (1 - Tdap) [facility] Start: 1978 Anxiety Screening Anxiety Screening [facility] Start: 1978 Depression Screening Depression Scre ening [facility] Start: 1978 Hepatitis C screening S [facility] Start: 1978 HIV screening HIV Screening [facility] Start: 11-01-1975 HIV screening HIV screen [facility] Start: 1972 Depression Screen Depression Screen [facility] Start: 1970 Lipid panel Lipids [facility] Start: 1965 COVID-19 Vaccine (1) COVID-19 Vaccin e (1) [facility] Albumin [Moles/volum e] in Serum or Plasma [facility] Albumin/Globulin ratio [facility] Alpha 1 antitrypsin [Mass/volume] in Serum or Plasma [facility] Blood glucose - POCT Blood gluco se - POCT Point of Care Testing STAT As Needed until discontinued starting 11/28/2021 [facility] Work Phone: Comment on above: As Needed until disc ontinued starting 11/28/2021 CBC W Auto Different ial panel - Blood [facility] CBC W Auto Different ial panel - Blood [facility] metabo lic 1999 panel - Serum or Plasma [facility] metabo lic 1999 panel - Serum or Plasma [facility] Cytoplasmic ANCA Screen [facility] EKG 12 Lead EKG 12 Lead ECG STAT 11/28/2021 1:23 PM EDT [facility] Work Phone: Electrophoresis: [id number] [facility] Electrophoresis: maggie ma globulin [facility] Globulin measurement [facility] Hepatitis A virus Ig M Ab [Presence] in Serum [facility] Hepatitis B core ant ibody measurement, IgM type [facility] Hepatitis B surface antigen measurement [facility] Hepatitis C antibody measurement [facility] IgA [Mass/volume] in Serum or Plasma [facility] IgE [Units/volume] i n Serum or Plasma [facility] IgG [Mass/volume] in Serum or Plasma [facility] IgG subclass 1 [Mass/volume] in Serum [facility] IgG subclass 2 [Mass/volume] in Serum [facility] IgG subclass 3 [Mass/volume] in Serum [facility] IgG subclass 4 [Mass/volume] in Serum [facility] IgM [Mass/volume] in Serum or Plasma [facility] End: 11-28-2021 INITIATE PACU OXYGEN THERAPY PROTOCOL Initiate PACU Oxygen Therapy Protocol Respiratory Care Routine Continuous until discontinued starting 11/28/2021 [facility] Comment on above: Continuous until dis continued starting 11/28/2021 End: 11-28-2021 Intermittent pulse oximetry Pulse Oximetry Spot Check Respiratory Care Routine One Time for 1 Occurrences starting 11/28/2021 until 11/28/2021 [facility] Work Phone: Comment on above: One Time for 1 Occur rences starting 11/28/2021 until 11/28/[address] [facility] Lipid 1995 panel - S jon or Plasma [facility] Lipid 1995 panel - S jon or Plasma [facility] Nasal Cannula Oxygen Nasal Cannu la Oxygen Respiratory Care Routine As Needed until discontinued starting 11/28/2021 [facility] Work Phone: Comment on above: As Needed until disc ontinued starting 11/28/2021 Nasal Cannula Oxygen Nasal Cannu la Oxygen Respiratory Care Routine As Needed until discontinued starting 11/28/2021 [facility] Work Phone: Comment on above: As Needed until disc ontinued starting 11/28/2021 Neutrophil cytoplasm ic Ab.classic [Units/volume] in Serum [facility] Nonrebreather mask oxygen Nonreb reather mask oxygen Respiratory Care Routine As Needed until discontinued starting 11/28/2021 [facility] Work Phone: Comment on above: As Needed until disc ontinued starting 11/28/2021 Nonrebreather mask oxygen Nonreb reather mask oxygen Respiratory Care Routine As Needed until discontinued starting 11/28/2021 [facility] Work Phone: Comment on above: As Needed until disc ontinued starting 11/28/2021 Oxygen therapy [[facility] Data Set] Initiate Oxygen Therapy Protocol Respiratory Care Routine As Needed until discontinued starting 11/28/2021 [facility] Work Phone: Comment on above: As Needed until disc ontinued starting 11/28/2021 P-ANCA measurement [facility] Partial thromboplast in time, activated [facility] Patient Education RAD RN Biopsy Liver Dc RAD RN Procedural Sedation [facility] Work Phone: Patient referral [facility] Work Phone: Platelets [#/volume] in Blood [facility] End: 11-28-2021 Potassium w/ Reflex to Magnesium Potassium w/ Reflex to Magnesium Lab Routine One Time for 1 Occurrences starting 11/28/2021 until 11/28/2021 [facility] Work Phone: Comment on above: One Time for 1 Occur rences starting 11/28/2021 until 11/28/2021 End: 11-28-2021 , urine POCT , urine POCT Point of Care Testing Routine One Time for 1 Occurrences starting 11/28/2021 until 11/28/2021 [facility] Work Phone: Comment on above: One Time for 1 Occur rences starting 11/28/2021 until 11/28/2021 Procedure [facility] Protein electrophore sis panel - Serum or Plasma [facility] Prothrombin time [facility] Prothrombin time [facility] End: 11-28-2021 Protime-INR Protime-INR Lab STAT One Time for 1 Occurrences starting 11/28/2021 until 11/28/2021 [facility] Work Phone: Comment on above: One Time for 1 Occur rences starting 11/28/2021 until 11/28/2021 Spirometry panel Incentive ziggy metry Respiratory Care Routine Q1H PRN until discontinued starting 11/28/2021 [facility] Work Phone: Comment on above: Q1H PRN until discon tinued starting 11/28/[address] [facility] Tissue transglutamin ase IgA Ab [Units/volume] in Serum [facility] Immunizations Immunization Date Immunization Notes Care Provider Molly donovan 07-27-2024 influenza virus vaccine, unspecified formulation Us [facility] 03-30-2023 zoster vaccine recombinant; Translations: [Shingrix] MICHAEL YOON PA-C [facility] 03-30-2023 influenza, injectabl e, quadrivalent, contains preservative; Translations: [Fluarix PF Quadrivalent ] MICHAEL FRANCIS-[employer] [facility] 03-23-2023 SARS-CoV-2 (COVID-19 ) [id number] MICHAEL FRANCIS-[employer] [facility] 01-14-2022 SARS-CoV-2 (COVID-19 ) mRNA-1273 vaccine MICHAEL FRANCIS[employer] [facility] 04-16-2021 SARS-CoV-2 (COVID-19 ) mRNA-1273 vaccine MICHAEL YOON PARes[employer] Vibes [facility] 09-06-2020 SARS-CoV-2 (COVID-19 ) mRNA-1273 vaccine MICHAEL FRANCISResonant Vibes [facility] Comment on above: Result Comment: 2022: [id number] 08-09-2020 SARS-CoV-2 (COVID-19 ) mRNA-1273 vaccine MICHAEL YOON PARes[employer] [facility] Comment on above: Result Comment: 2022: [id number] Payers Date Payer Category Payer Self-pay 2024 Medicare (Managed Care) PRIMETIM E [id number] 2017 Unknown [id number] 2015 Medicare [id number] 1960 Unknown [id number] 2.16.840.1.240831.3.579.2.6 1960 Unknown [id number] 2.16.840.1.074798.3.579.2.6 1960 Unknown [id number] 2.16.840.1.325852.3.579.2.6 1960 Unknown [id number] 2.16.840.1.300074.3.579.2.6 1960 Unknown [id number] 2.16.840.1.841507.3.579.2.6 1960 Unknown [id number] 2.16.840.1.917250.3.579.2.6 1960 Unknown [id number] 2.16.840.1.029378.3.579.2.6 1960 Unknown [id number] 2.16.840.1.532831.3.579.2.6 1960 Unknown [id number] 2.16.840.1.886556.3.579.2.6 1960 Unknown [id number] 2.16.840.1.666472.3.579.2.6 1960 Unknown [id number] 2.16.840.1.546454.3.579.2.6 1960 Unknown [id number] 2.16.840.1.845961.3.579.2.6 1960 Unknown [id number] 2.16.840.1.310608.3.579.2.5 98 Unknown [id number] 2.16.840.1.210781.3.579.2.4 62 Unknown [id number] 2.16.840.1.552727.3.579.2.4 62 Unknown [id number] 2.16.840.1.237870.3.579.2.4 62 Unknown [id number] 2.16.840.1.540636.3.579.2.4 62 Unknown [id number] 2.16.840.1.614498.3.579.2.4 62 Unknown [id number] 2.16.840.1.991473.3.579.2.4 62 Unknown [id number] 2.16.840.1.372850.3.579.2.4 62 Unknown [id number] 2.16.840.1.022701.3.579.2.4 62 Unknown [id number] 2.16.840.1.343170.3.579.2.4 62 Unknown [id number] 2.16.840.1.370264.3.579.2.4 62 Social History Date Type Detail Facility Start: 10-03-2020 End: 05-09-2022 Tobacco smoking status Ex-smoker (finding) [facility] Start: 1960 Sex Assigned At Male A [facility] Start: 05-25-1984 End: 05-25-2019 History of tobacco use Current smoker [employer] Phone: Start: 05-25-1984 End: 05-25-2019 History of tobacco use Cigarette Smoker [employer] Phone: Start: 10-11-2021 Cigarettes smoked current (pack per day) - Reported 1 [employer] Phone: Start: 10-11-2021 Tobacco use and exposure Smokeless tobacco non-user [employer] Phone: Start: 11-28-2021 Alcohol intake Ex-drinker (finding) [facility] Work Phone: Start: 11-18-2021 End: 11-28-2021 Exposure to SARS-CoV-2 (event) Not sure [facility] Work Phone: Tobacco smoking stat [facility] Unknown if ever smoked [facility] Work Phone: Start: 08-22-2024 Sex Male (finding) [facility] Start: 11-01-2024 Tobacco smoking stat [facility] Never smoked tobacco (finding) [facility] Start: 11-10-2024 Tobacco smoking stat [facility] Smokes tobacco daily (finding) [facility] Start: 1960 Sex assigned at Not on file [facility] Gender identity Not on file [facility] Functional Status Date Assessment Result Facility 12-23-2022 Functional Status Awake [facility] 12-23-2022 Functional Status Patient Identified Iden tification band [facility] 12-23-2022 Functional Status Maintained [facility] 12-18-2022 Functional Status Awake, Up to bathroom [facility] 12-18-2022 [facility] Mental Status Date Assessment Result Facility 11-10-2024 Cognitive function Awake;Alert;Appropriat e [facility] Work Phone: 12-23-2022 Mental Status Oriented x 4 [facility] 12-23-2022 Mental Status [facility] 12-18-2022 Mental Status Oriented x 4 [facility] 12-18-2022 [facility] Clinical Notes 11-28-2021 to 11-29-2024 Deidre Merrill, RT(R) - 11/29/2024 8:00 AM EDT Note Date & Type Note Facility 11-29-2024 History of Present illness Narrative Radiology Service Progress Note PATIENT NAME: Natty Zaidi DATE OF SERVICE: November 29, 2024 TIME: 8:47 AM PATIENT IDENTITY VERIFICATION COMPLETED USING TWO (2) IDENTIFIERS: Name and Date of confirmed by patient verbally and Name and Date of confirmed by identification band. FALL SCREENING: Has the patient had 2 falls in the last year or 1 fall with injury or currently using an Ambulatory Assistive Device (Walker, Cane, Wheelchair, Crutches, etc.)? No PATIENT GENDER DATA: Assigned male at PATIENT RELEVANT IMPLANT DATA REVIEWED: Not Applicable PATIENT PRESENTS WITH AN IMPLANTABLE OR ATTACHED STERILIZER OPERATOR: No RADIOLOGY DEPARTMENT: Ultrasound PERIPHERAL IV DATA: Not applicable SIGNED BY: NOEL Patricio) November 29, 2024 8:47 AM documented in this encounter [facility] 11-29-2024 Note HNO ID: [id number] Author: DEIDRE MERRILL RT (R) Service: Radiology Author Type: Technologist Type: Progress Notes Filed: 11/29/2024 08:48 Note Text: Radiology Service Progress Note PATIENT NAME: Natty Zaidi DATE OF SERVICE: November 29, 2024 TIME: 8:47 AM PATIENT IDENTITY VERIFICATION COMPLETED USING TWO (2) IDENTIFIERS: Name and Date of confirmed by patient verbally and Name and Date of confirmed by identification band. FALL SCREENING: Has the patient had 2 falls in the last year or 1 fall with injury or currently using an Ambulatory Assistive Device (Walker, Cane, Wheelchair, Crutches, etc.)? No PATIENT GENDER DATA: Assigned male at PATIENT RELEVANT IMPLANT DATA REVIEWED: Not Applicable PATIENT PRESENTS WITH AN IMPLANTABLE OR ATTACHED STERILIZER OPERATOR: No RADIOLOGY DEPARTMENT: Ultrasound PERIPHERAL IV DATA: Not applicable SIGNED BY: NOEL Patricio) November 29, 2024 8:47 AM [facility] 11-10-2024 Radiology Diagnostic study note [facility] Imaging Services [address], [place] [id number] Biopsy/Inj or Needle Placement MR#: [id number] Acct: [id number] Name: NATTY ZAIDI Rep #: [id number] 2 : 1960 M 64 From: Chip Romero MD PCP: Misty Banerjee, ASSOCIATE PASTOR-Marlys Status: RE G CLI Study:Biopsy/Inj or Needle Placement Date of Exam: 11/10/24 Exam# [id number] Ordering Dr: Surinder Pérez DO EXAM: CT-guided core biopsy of the liver. CLINICAL HISTORY: Abnormal liver function tests. COMPARISON: None TECHNIQUE: The procedure as well as the benefits and possible complications including infection and bleeding were explained to the patient. Informed consent was obtained. Conscious sedation was performed. The patient received 50 mcg of fentanyl intravenously. Conscious sedation was started at 8:39 a.m. and terminated at 8:54 a.m.. The patient was independently monitored by the department nurse. The patient was in the supine position. The overlying skin was prepped and draped in the usual sterile fashion. Following local anesthetic application, an 18 gauge core biopsy needle system was placed into the left hepatic lobe. 4 core biopsies were performed. The patient tolerated the procedure well. No immediate complication was noted. FINDINGS: Successful CT-guided core biopsy of the left lobe of the liver. CT/Biopsy/Inj or Needle Placement IMPRESSION: Successful CT-guided core biopsy of the left lobe of the liver. Patient tolerated the procedure well. No immediate complication noted. Reading Location: [place] [address] CC: BOYD Banerjee; Werner Pérez DO ~ Embroidery Finisher: Signed 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 Work Phone: 1(952) 507-922203-26-2025 Evaluation note* Diagnosis Onset Date Resolution Status Admit Date Cirrhosis acute August 17 10:57am Gastroesophageal reflux disease none active August 17, 2024 10:57am Cirrhosis acute October 19, 2024 7:21am Gastroesophageal reflux disease none active October 19, 2024 7:21am Cirrhosis acute November 01 1:52pm [facility] Work Phone: 1(685) 863-346303-26-2025 Evaluation note* Diagnosis Onset Date Resolution Status Admit Date Cirrhosis acute August 17 10:57am Gastroesophageal reflux disease none active August 17, 2024 10:57am Cirrhosis acute October 19, 2024 7:21am Gastroesophageal reflux disease none active October 19, 2024 7:21am 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 Work Phone: 1(805) 535-486710-11-2024 Evaluation + Plan note Future Scheduled Tests Laboratory* Prostate Specific Antigen 03/04/24 * Lipid Profile 03/30/23 * Complete Metabolic Panel 03/30/23 Radiology* CT ABD w + w/o Contrast/Pelvis w/ Cont 03/18/23 [facility] 08-01-2023 Hospital Discharge instructions Patient Education 12/23/2022 12:16:47 -[facility] Discharge Instructions Template (02/2018)(CUSTOM) [place] SAME DAY SURGERY DISCHARGE INSTRUCTIONS PLEASE FOLLOW THE INSTRUCTIONS BELOW MARKED WITH AN X: _x__ Regular Diet: Start with clear liquids, then soup and crackers and gradually add other foods. _x__ Drink extra fluids. ___ Special Diet Instructions: ___ ACTIVITY: _x__ Since you have had an anesthetic, it would be advisable not to drive, drink alcohol, or make major decisions over the next 24 hours. You may require more rest tonight and tomorrow. ___ May resume regular activity as tolerated. ___ Restrict activity as follows: ___ ___ Walk Only ___ ___ Do not go up and down stairs. ___ Do not ride in car until ___ ___ Do not drive car. ___ Do not have sexual intercourse. ___ No heavy lifting, pushing or straining. ___ Other: ___ BATHING/SHOWERING: ___ Sponge bathe until office visit. ___ Sitting in tub of warm water may relieve discomfort. ___ May tub bathe ___ May shower ___ On day after surgery sit in tub of warm water to soak off dressing. DRESSING: ___ Keep operative area dry and clean for ___ ___ Check the operative area for signs of bleeding. Apply pressure to the bleeding site if necessary and call your physician. ___ Change dressing as necessary using sterile dressing material or bandaid. ___ Reinforce dressing as necessary. ___ Change and care for wound as follows: ___ ___ Wear bra for ___ days following breast surgery for comfort. ___ Change drip pad as needed. ___ Wear scrotal support for comfort. WATCH FOR SIGNS OF INFECTION: (Usually appears 36-48 hours after surgery) Increased temperature (101 degrees Fahrenheit or higher) Redness or swelling Increased pain Foul odor or drainage. If you have any questions, please call your doctor at the number listed on your follow up instructions. Follow all instructions given to you by your physician. Please complete and return the survey you will be receiving in the mail to help us better serve our patients. Form: 1522 ([id number]) R: 08/31 Follow Up Care 12/05/2022 08:39:55 With:CLARA LLOYD MD Address: [address] [place] [address] [facility] [place] [address]- When: Unknown Comments:Follow-up as scheduled [facility] 08-01-2023 Anesthesiology Consult note Patient: NATTY ZAIDI Age: 62 years Sex: Male : 1960 Associated Diagnoses: None Author: LUISA GARCIA DO Assessment Postanesthesia assessment Vitals. Mental status: at preoperative baseline. Respiratory function: respirations are non-labored, stable. Respiratory support: none. CV function: stable. Cardiovascular support: none. Pain: Post op control satisfactory. Nausea status: satisfactory. Postoperative hydration status: within normal limits. Notes: pt sufficentyl recovered from anesthesia to participate in the evaluation. No follow up careneeded. No complications post-anesthesia. Digitally Signed by LUISA GARCIA DO on 12/23/2022 12:31 PM [id number] Summary of episode note Discharge Instructions Thank you for allowing [facility] to assist you with your healthcare needs. The following is importantdischarge information regarding your hospital visit. Your Care Team MISTY BANERJEE What to do next Scheduled Follow-Up Appointments Appointment Type When With Where Contact InformationPOD 02/10/2023 02:45 PM EDT CHELI ADAMS DPM [facility] [place] Follow Up Appointments Follow Up with CLARA LLOYD MD When Why: Follow-up as scheduled Where: [address] [facility] [place] [address]- Allergies Augmentin (Hives) Versed (Confusion) Medications Please ask your primary doctor or pharmacist before taking any other medication not listed, including over the counter drugs, herbal medications, vitamins and or supplements as they may interact withyour home medications. What How Much When Why Instructions Last Dose Unchanged acetaminophen (Tylenol Extra Strength 500 mg oral tablet) 2 tab(s) by mouth Every 6 hours as needed for as needed for pain Unchanged citalopram (citalopram 10 mg oral tablet) 1 tab(s) by mouth Once a day (in the morning) Unchanged gabapentin (gabapentin 100 mg oral capsule) 1 cap by mouth Two (2) times a day Diabetes type 2, controlled Duration: 90 Days Take 100mg in the AM and 200mg (2 tabets) qHS Unchanged glimepiride (glimepiride 1 mg oral tablet) 1 tab(s) by mouth Two (2) times a day Duration: 90 Days Unchanged metFORMIN (metFORMIN 500 mg oral tablet (IR)) 1 tab(s) by mouth Two (2) times a day Unchanged pantoprazole (pantoprazole 20 mg oral enteric coated tablet) 1 tab(s) by mouth Daily at bedtime Unchanged phenazopyridine (AZO Urinary Pain Relief Max Strength) by mouth Three (3) times a day after meals Unchanged pramipexole (pramipexole 0.5 mg oral tablet) 1 tab(s) by mouth Once a day (in the evening) Take 1 tab in the PM Please take this list to your next doctor s visit. Bring all medications you take, including over the counter medications, herbals and other supplements with you to your doctor s visit. Patients and families are reminded to discard old lists and to update any records with all medication providers or retail pharmacies. Education Materials [facility] SAME DAY SURGERY DISCHARGE INSTRUCTIONS PLEASE FOLLOW THE INSTRUCTIONS BELOW MARKED WITH AN X: _x__ Regular Diet: Start with clear liquids, then soup and crackers and gradually add other foods. _x__ Drink extra fluids. ___ Special Diet Instructions: ___ ACTIVITY: _x__ Since you have had an anesthetic, it would be advisable not to drive, drink alcohol, or make major decisions over the next 24 hours. You may require more rest tonight and tomorrow. ___ May resume regular activity as tolerated. ___ Restrict activity as follows: ___ ___ Walk Only ___ ___ Do not go up and down stairs. ___ Do not ride in car until ___ ___ Do not drive car. ___ Do not have sexual intercourse. ___ No heavy lifting, pushing or straining. ___ Other: ___ BATHING/SHOWERING: ___ Sponge bathe until office visit. ___ Sitting in tub of warm water may relieve discomfort. ___ May tub bathe ___ May shower ___ On day after surgery sit in tub of warm water to soak off dressing. DRESSING: ___ Keep operative area dry and clean for ___ ___ Check the operative area for signs of bleeding. Apply pressure to the bleeding site if necessary and call your physician. ___ Change dressing as necessary using sterile dressing material or bandaid. ___ Reinforce dressing as necessary. ___ Change and care for wound as follows: ___ ___ Wear bra for ___ days following breast surgery for comfort. ___ Change drip pad as needed. ___ Wear scrotal support for comfort. WATCH FOR SIGNS OF INFECTION: (Usually appears 36-48 hours after surgery) Increased temperature (101 degrees Fahrenheit or higher) Redness or swelling Increased pain Foul odor or drainage. If you have any questions, please call your doctor at the number listed on your follow up instructions. Follow all instructions given to you by your physician. Please complete and return the survey you will be receiving in the mail to help us better serve our patients. Form: 1522 ([id number]) R: 08/31 Additional Information VACCINATE! IT SAVES LIVES! Members of the community who have not yet received the COVID-19 vaccine and would like to receive it can visit one of [facility] vaccine clinics. There are many vaccine clinic locations within the [facility]. For locations and available times, please visit https://gettheshot.coronavirus.[place].gov/. It is important to note that some COVID mobile vaccine clinics are held outdoors and may be canceled in rainy or stormy conditions. To learn more about pediatric vaccinations (ages 5-11), we invite you to visit the [employer] webpage. https://www.[employer].org/pages/1143-Duudo-Yoowyrkaxnn-Ffuljtaybq-Iioxh-Obg stions.htmlTo learn more about the COVID-19 vaccine, we invite you to visit the CDC website for a list of frequently asked questions.https://www.cdc.gov/coronavirus/2019-ncov/vaccines/faq.html [employer] Patient Portal Access Instructions: Stay connected with your healthcare team and access your personal medical information anytime with the [employer] Patient Portal. Please follow the directions below to create your [employer] account: 1.Access the email account you provided upon registration to the hospital/physician office.2.Look for an invitation email from [facility].3.Open the email and access the invitation link: AcceptInvitation to [employer].4.Fill in the required jones to create your account. To access your account, visit [employer]ance (app)OneChart. Click the blue button labeled Access Patient Portal and then log in with the username and password that you created in the steps above. You will be able to view your test results, lab results, a summary of your visits, upcoming appointments and more. There is also a convenient messaging option where you can send secure messages to your [facility]. In addition, you will have the ability to download any documents or summaries to your computer and/or send the information securely to a physician. Remember that your healthcare information is confidential, so carefully consider who you will allowto register on the [facility] for access to your information. You can also access the [facility] on the [place] [facility] darrius. Simply click on Patient Portal and then log into your account. If you would like to receive a full copy of your medical records, please contact the [facility] Medical Records Department by calling [phone], Thursday through Thursday between 8 a.m. and 4:30 p.m. HOW TO SAFELY DISPOSE OF PRESCRIPTION MEDICATIONS Please use one of the following methods to safely dispose of your unused medications. 1.Use a drug disposal kit: the drug disposal pouch allows you to safely discard your old and unuseddrugs. Ask your nurse to give you one when you are discharged.2.Visit a local take-back location: Many local pharmacies and police departments have programs that collect old and unwanted prescriptiondrugs. Call your local pharmacy or go to http://Mezz[employer]/9Y2Kt7d to find one close to you.3.Make use of household items: Use cat litter or old coffee grounds to dispose medications if other options arenot available. Mix your drugs with these household products, seal them in an airtight container andthrow it into the garbage. Call [facility]: [phone] to be sure your drugs can be disposed of in this way. Some medicines may require a different approach.4.Never flush your medications down the toilet. IF YOU HAVE BEEN PRESCRIBED AN OPIOID FOR PAIN If you have been prescribed an opioid (such as hydrocodone, oxycodone or morphine), it is critical to understand the possible side effects and risks of opioid pain medications. Even when taken as directed, opioids can have several side effects including: Tolerance, meaning you might need to take more of a medication for the same pain relief. Nausea, vomiting and/or constipation. Sleepiness, dizziness, dry mouth, confusion, depression or itching. Physical dependence, meaning you have withdrawal symptoms when a medication is stopped, can develop within a few days. KNOW YOUR RESPONSIBILITIES It is important to know exactly how much and how often to take the opioid pain medications you are prescribed. Never take opioids in higher amounts or more often than prescribed. Do not combine opioids with alcohol or other drugs that cause drowsiness, such as benzodiazepines, also known as benzos, including diazepam and alprazolam, muscle relaxants or sleep aids. Never sell or share prescription opioids. This is illegal. Store opioids in a secure place and out of reach of others (including children, family, friends and visitors). The last page of this document has been signed and retained as a CHART COPY. Signatures Patient Education Materials 1-SDS Discharge Instructions Template (02/2018)(CUSTOM) Medication Leaflets My discharge plan and instructions have been reviewed and explained to me and I,NATTY ZAIDI understand my current condition and have read and understand these discharge instructions. I have received a written copy of the plan/instructions. If I have questions, I am aware that I should contact my doctor. Patient/Safety Director Signature: Date/Time: Relationship to Patient: Witness Name/Signature: [id number] Note Date of Service 12/23/2022 Procedure Name Colonoscopy with polypectomy Referring Provider Lavonne Consent Prior to beginning the procedure, and informed consent conference was held with the patient at the bedside. All the risks, benefits, alternatives to this procedure were discussed at length. The patient seemed to understand the risk and gave us informed consent via signature Indication History of colon polyps Location OR 1 Pre-Procedure Exam Prior to beginning the procedure, the patient provided us with informed consent. All the risks and benefits of the procedure were discussed at length with the patient prior to obtaining this consent.The patient's physical exam was repeated prior to the procedure. Iliac exam revealed a regular rateand rhythm, no murmurs, rubs, or gallops. Respiratory exam is clear throughout. Abdominally the patient was soft and nontender the patient. not require prophylactic antibiotics prior to the procedure. The patient was not taking anti-coagulation prior to the procedure. Patient's heart rate blood pressure and SPO2 were monitored closely throughout this procedure. After obtaining informed consent, the Olympus colonoscope was passed under direct vision into the cecum. Patient tolerated the procedure well. The quality of the preparation was fair Procedural Sedation Propofol per anesthesia staff Post-Procedure Exam To recovery without complication Findings The Olympus colonoscope was passed under direct vision into the rectum and ultimately passed through the colon to reach the anastomosis in the region of the cecum. It actually did appear that he had an appendiceal orifice and I was able to locate an approximately 10 mm polyp just adjacent to the orifice that was sessile in nature. This was resected and retrieved using a hot snare. I placed a clipwith his history of thrombocytopenia to prevent bleeding. I was able to briefly intubate the ileum which appeared normal. I carefully evaluated the anastomosis with no additional polyp tissue identified. I then slowly withdrew the scope through what appeared to be some moderate diverticular diseasein the sigmoid colon. There is brown stool, spread throughout. Some of which was actually solid anddifficult to remove. The stool was most prominent in the ascending colon and hepatic flexure. The rest the entire examined colon appeared normal. He did have medium sized internal hemorrhoids on retroflexion view in the rectum. Impression Diverticulosis in the sigmoid colon. 10 mm polyp in the cecum. Resected and retrieved using hot snare. Previous surgery noted. The rest entire examined colon appeared normal. Internal hemorrhoids Complications None Estimated Blood Loss 5 cc Assessment/Plan History of colon polyps Follow Up/Recommendation Await pathology results. Would repeat colonoscopy in 2 years with fair preparation and high risk polyp history. Okay for discharge from GI standpoint once all criteria been met. Digitally Signed by CLARA LLOYD MD on 12/23/2022 11:00 AM [id number] Anesthesiology Consult note Patient: NATTY ZAIDI Age: 62 years Sex: Male : 1960 Associated Diagnoses: None Author: CELIO PINZON MD Preoperative Information Time of last food or liquid consumption: 12/23/2022 00:00:00 Anesthesia history Patient's history: negative. Family's history: negative. History of Present Illness The patient presents for preanesthesia evaluation with Patient is a 62-year-old male who presents for colonoscopy to assess colon polyps. He states he is active with some limitations, however, deniesischemic symptoms, cardiopulmonary limitations, prior history of CAD or cardiac interventions. His EKG is normal sinus rhythm without changes suggestive for ischemia. Patient does have a history of hypertension, hypercholesterolemia, diabetes, obstructive sleep apnea, GERD. Patient states his acid reflux is under good control, he has any symptoms of the day of surgery. He has no prior anesthetic issues, I reviewed his chart, studies, labs, consultations. Spoke with him at length about the anesthetic plan and risks, he verbalized understanding and signed consent to proceed with sedation for planned procedure.. Health Status Allergies: Nonallergic Reactions (Selected) Severe Augmentin- Hives. Severity Not Documented Versed- Confusion., Allergies (2) ActiveReaction AugmentinHives VersedConfusion Current medications: (Selected) Inpatient Medications Ordered Flagyl IVPB: 500 mg, 100 mL, 100 mL/hr, IV Piggyback, PREOP pharm LR 1,000 mL: 20 mL/hr, Intravenous Xylocaine HCl 1% injectable solution: 2.5 mg, 0.25 mL, Intradermal, PREOP pharm Prescriptions Prescribed gabapentin 100 mg oral capsule: 100 mg, 1 cap(s), Oral, BID, for 90 day(s), Take 100mg in the AM and 200mg (2 tabets) qHS, 180 cap(s), 0 Refill(s) glimepiride 1 mg oral tablet: 1 mg, 1 tab(s), Oral, BID, for 90 day(s), 180 tab(s), 0 Refill(s) Documented Medications Documented AZO Urinary Pain Relief Max Strength: Oral, TIDPC, 0 Refill(s) Tylenol Extra Strength 500 mg oral tablet: 1,000 mg, 2 tab(s), Oral, q6hr, PRN: as needed for pain,120 tab(s), 0 Refill(s) citalopram 10 mg oral tablet: 10 mg, 1 tab(s), Oral, qAM, 30 tab(s), 0 Refill(s) metFORMIN 500 mg oral tablet (IR): 500 mg, 1 tab(s), Oral, BID, 180 tab(s), 0 Refill(s) pantoprazole 20 mg oral enteric coated tablet: 20 mg, 1 tab(s), Oral, qHS, 90 tab(s), 0 Refill(s) pramipexole 0.5 mg oral tablet: 0.5 mg, 1 tab(s), Oral, qPM, Take 1 tab in the PM, 270 tab(s), 0 Refill(s), Medications (1) Active Scheduled: (0) Continuous: (1) Lactated Ringers 1,000 mL 1,000 mL, Intravenous, 20 mL/hr PRN: (0) Problem list: Medical Acid reflux / SNOMED CT 592546981 / Confirmed Anxiety / SNOMED CT 83380752 / Confirmed Arthritis / SNOMED CT 3285452 / Confirmed Bladder spasms / SNOMED CT 526729934 / Confirmed BMI 32.0-32.9,adult / SNOMED CT 544483584 / Confirmed Colon polyps / SNOMED CT 770537328 / Confirmed Depression / SNOMED CT 80617364 / Confirmed Diabetes mellitus with neuropathy / SNOMED CT 614050961 / Confirmed Diabetes type 2, controlled / SNOMED CT 903111946 / Confirmed Dysuria / SNOMED CT 26566372 / Confirmed Engages in vaping / SNOMED CT 3529761149 / Confirmed Family history of colorectal cancer / SNOMED CT 1082602467 / Confirmed Foot pain / SNOMED CT 954497166 / Confirmed GERD (gastroesophageal reflux disease) / SNOMED CT 515411253 / Confirmed Glasses / SNOMED CT 4991473117 / Confirmed Headache / SNOMED CT 78520927 / Confirmed Hepatomegaly / SNOMED CT 279649998 / Confirmed HLD (hyperlipidemia) / SNOMED CT 26196597 / Confirmed HTN (hypertension) / SNOMED CT 0605256295 / Confirmed Ingrown toenail of bilateral feet / SNOMED CT 2355978326 / Confirmed Lumbar herniated disc / SNOMED CT 842242548 / Confirmed National Institutes of Health (NIH) Stroke Scale gaze score 1, partial gaze palsy; gaze is abnormalin one or both eyes, but forced deviation or total gaze paresis is not present / SNOMED CT 319216801 / Confirmed Numbness and tingling / SNOMED CT 2811448209 / Confirmed Pain of toes of bilateral feet / SNOMED CT 696434453059439 / Confirmed Preoperative clearance / SNOMED CT 967784197 / Confirmed Restless leg / SNOMED CT 06643906 / Confirmed RLS (restless legs syndrome) / SNOMED CT 66354730 / Confirmed Seasonal allergies / SNOMED CT 3873707126 / Confirmed Sleep apnea / SNOMED CT 382010167 / Confirmed Smokers' cough / SNOMED CT 23156544 / Confirmed Splenomegaly / SNOMED CT 63635255 / Confirmed Thrombocytopenia / SNOMED CT 3482973104 / Confirmed Thrombocytopenic / SNOMED CT 922109195 / Confirmed Urinary urgency / SNOMED CT 203591324 / Confirmed Vertigo / SNOMED CT 6245849418 / Confirmed, Active Problems (42) Acid reflux Anxiety Arthritis Bladder spasms Blurry vision BMI 32.0-32.9,adult Colon polyps Constipation Depression Diabetes Diabetes mellitus with neuropathy Diabetes type 2, controlled Diarrhea Dysuria Engages in vaping Family history of colorectal cancer Foot pain GERD (gastroesophageal reflux disease) Glasses Headache Hepatomegaly Herniated cervical disc HLD (hyperlipidemia) HTN (hypertension) Ingrown toenail of bilateral feet Lumbar herniated disc National Institutes of Health (NIH) Stroke Scale gaze score 1, partial gaze palsy; gaze is abnormal Numbness and tingling Pain of toes of bilateral feet Preoperative clearance Restless leg RLS (restless legs syndrome) Seasonal allergies Sleep apnea Smokers' cough Splenomegaly Thrombocytopenia Thrombocytopenic Urinary urgency Vapes nicotine containing substance Vertigo Vision loss, bilateral Histories Past Medical History: Active National Institutes of Health (NIH) Stroke Scale gaze score 1, partial gaze palsy; gaze is abnormalin one or both eyes, but forced deviation or total gaze paresis is not present (584977982): Onset in 2000 at 39 years. 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 / WAS ON DIOVAN FOR 2-3 YEARS /IT WAS D/C'D D/T HYPOTENSION Sleep apnea (888574835) Smokers' cough (37971133) Colon polyps (272464429) Arthritis (6413966) Lumbar herniated disc (283982442) Numbness and tingling (4341415740) Comments: 08/11/2017 EDT 10:33 SAMMI Ramírez R LEG / AFTER PROLONGED STANDING Headache (41181425) Comments: 08/11/2017 EDT 10:33 GENARO - SAMMI Garland SINUS Anxiety (26642070) RLS (restless legs syndrome) (27179066) Vertigo (4029199011) Comments: 08/11/2017 EDT 10:41 GENARO - SAMMI Garland PT TO HAVE CAROTID STUDIES & ECHO 08/21/17 Acid reflux (298037262) Glasses (4260169599) Comments: 10/09/2017 EDT 15:47 GENARO - SAMMI Perez reading Thrombocytopenia (8457901455) Comments: 05/09/2022 EST 19:06 EST - [place] [employer] 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 Pneumonia (176014303): Resolved. High blood pressure (35768472): Resolved. Comments: 10/09/2017 EDT 15:47 SAMMI Valle after stroke but no meds for a long time Family History: Cancer Mother Grandparent Tuberculosis Father Heart disease Grandparent Alcohol abuse Mother Father Brother Grandparent Migraine Brother Multiple sclerosis Brother Sleep apnea Daughter Sepsis Father PCOS- polycystic ovary syndrome Daughter Mononucleosis dacryoadenitis Brother Procedure history: Colectomy (77197933) on 10/13/2017 at 56 Years. Laminectomy (3970666552) in 2016 at 56 Years. Cervical discectomy (157409149) in 2000 at 40 Years. Laminectomy (2801896180) in 1995 at 35 Years. Deviated septum ([id number]) in 1989 at 29 Years. Tonsillectomy and adenoidectomy (945771156). Comments: 08/11/2017 10:38 SAMMI Ramírez UVULECTOMY Colonoscopy normal (112585378). Comments: 10/09/2017 15:39 SAMMI Valle multiple Arthroscopic knee operation (1893709904). Comments: 05/09/2022 8:53 SAMMI Middleton right Uvula operation (714508902). EGD - Esophagogastroduodenoscopy (8928846707). Social History Social & Psychosocial Habits Alcohol 12/18/2022Risk Assessment: Denies Alcohol Use 12/18/2022 Use: Past Substance Abuse 12/18/2022Risk Assessment: Denies Substance Abuse 12/18/2022 Use: Never Tobacco 12/18/2022 Tobacco Use: Former smoker, quit more, Vaping Product in Last 90 Type: Electronic Cigarettes ([place] Home/Environment 12/18/2022 Domestic Concerns None Living situation: Home/Independent Current Home Treatments None Special Services and Community Resources None Spouse Name August Marital Status of Patient if Patient Independent Adult: Nutrition/Health 12/18/2022 Caffeine intake amount: 6 cups/daily . Physical Examination Vital Signs 12/23/2022 9:15 EDT Temperature Temporal Artery 36.2 DegC Peripheral Pulse Rate 67 bpm Respiratory Rate 18 br/min Systolic Blood Pressure Non-Invasive 110 mmHg Diastolic Blood Pressure Non-Invasive 75 mmHg Vital Signs(last 24 hrs) Last Charted Resp Rate 18 br/min (DEC 23 09:15) QDP075 mmHg (DEC 23 09:15) DBP75 mmHg (DEC 23 09:15) Measurements from flowsheet : Measurements 12/23/2022 9:15 EDT Height 185.4 cm Height in inches 73 inch(es) Admission Weight 100.2 kg Weight Lbs 220.4 lb Davidson Body Weight 79.88 kg Admission Body Mass Index 29.15 m2 Pain assessment: Pain Assessment 12/23/2022 9:15 EDT Primary Pain Intensity 0 Pain Scale Type 0-10 Pain scale . General: Alert and oriented, No acute distress. Airway: Normal mouth. Mallampati classification: II (soft palate, fauces, uvula visible). Head: Normocephalic, Atraumatic. Dentition Evaluation: Intact. Neck: Supple, Non-tender. Respiratory: Lungs are clear to auscultation, Respirations are non-labored. Cardiovascular: Normal rate, Regular rhythm. Heart Sounds: Normal. Neurologic: Alert, Oriented. Review / Management Results review: No qualifying data available , Lab results 12/23/2022 9:31 EDT SN - Preop - CTm Pt Ready for OR/Proced 12/23/2022 9:31 12/23/2022 9:31 EDT SN - Preop - CTm Pt in SDS Room 12/23/2022 9:15 12/23/2022 9:30 EDT Lactated Ringers Injection Begin Bag 1,000 mL mL 12/23/2022 9:29 EDT Hand Left 20 gauge Peripheral IV Activity: Insert new site Peripheral IV Dressing Condition: Clean, Dry, Intact Peripheral IV Dressing Activity: Applied, Transparent dressing Peripheral IV Line Status/Patency: Continuous infusion Peripheral IV Site Condition: No complications Peripheral IV Equipment: Manual Peripheral IV Number of Attempts: 1 12/23/2022 9:24 EDT Designated Person #1 We May Share PHI Designated Person #1 We May Share PHI Designated Person #1 Relationship Spouse Privacy Restrictions Requested None Status N/A Sensory Deficits None Sleep Apnea Snore Yes Sleep Apnea Tired Yes Sleep Apnea Obstruction Yes Sleep Apnea Pressure No Sleep Apnea BMI Yes Sleep Apnea Age Yes Sleep Apnea Neck Yes Sleep Apnea Gender Yes Sleep Apnea Score 7 >HHI High Risk for Sleep Apnea Yes Diagnosed With Sleep Apnea Yes Advanced Directives No - refuses information Infectious Disease Symptoms Patient states no symptoms Infectious Disease Recent Exposure No Alcohol and Drug Use No Employee of Institutional Living No Health Care Employee No History of Exposure to TB No History of Positive Chest X-Ray for TB No History of Positive TB Skin Test No Homeless No Known Immunosuppression No Recent Immigrant No Resident of Institutional Living No Bloody Sputum No Fatigue No Fever No Loss of Appetite No Night Sweats No Persistent Cough > 3 Weeks No Weight Loss No Barriers to Learning None evident Teaching Method Explanation Preferred Spoken Language [place]an Preferred Written Language [place]an Teaching Evaluation Verbalizes/Nonverbally indicates understanding Safety Brochure Information Reviewed Yes Arvind [place] Video Viewed Previously viewed Information Given by Patient Patient's Current Physicians Patient's Current Physicians Discharge To, Anticipated Home independently Prev Test Positive/Diagnosis w/COVID-19 No Current Quarantine/Isolated any Illness No Any Contact with Sick Animals/Birds No Traveled Anywhere in Last 30 Days No Lost Weight Unintentionally Recently No Eat Poorly Due to Decreased Appetite No Total MST Score 0 N/A Personal Devices, Patient Valuables None Anesthesia/Transfusions Prior anesthesia Admission Note-Nursing Same Day Patient History (Modified) 12/23/2022 9:15 EDT Height 185.4 cm Height in inches 73 inch(es) Admission Weight 100.2 kg Weight Lbs 220.4 lb Davidson Body Weight 79.88 kg Admission Body Mass Index 29.15 m2 Temperature Temporal Artery 36.2 DegC Peripheral Pulse Rate 67 bpm Respiratory Rate 18 br/min Systolic Blood Pressure Non-Invasive 110 mmHg Diastolic Blood Pressure Non-Invasive 75 mmHg Primary Pain Intensity 0 Pain Scale Type 0-10 Pain scale Oxygen Therapy Room air Oxygen Saturation 96 % Abdomen Description Non-distended Abdomen Palpation Soft Urinary Elimination Voiding, no difficulties Skin Temperature Warm Skin Description [place], Dry Skin Integrity Intact IV Present Present Characteristics of Speech Clear Level of Consciousness Alert Strength All Extremities Strong Tone All Extremities Normal Sensation All Extremities Intact Violence Risk Confused No Violence Risk Irritable No Violence Risk Boisterous No Violence Risk Verbal Threats No Violence Risk Physical Threats No Violence Risk Attacking Objects No Violence Risk Predictor Score 0 Violence Risk Intervention None Violence Risk Current Interventions None Affect/Behavior Cooperative Orientation Oriented x 4 Allergies Yes Colon Prep Results Good Consent Form Signed Yes Patient Dressed In Hospital gown CHG Preoperative Wash/Wipe Not done Non-CHG Preoperative Shampoo Not applicable Preop Nasal Swab Not done CHG Skin Prep Not completed - surgery contraindicated History & Physical Update On Chart Yes History & Physical On Chart Yes Bowel Prep Completed Yes Obstructive Sleep Apnea Assess Completed Yes MRSA/MSSA Protocol No Belongings At Bedside Pants, Shirt, Shoes, Socks, Undergarments Personal Home Medications Received No home medications were brought in NPO Status Maintained Standard Safety ID band on, Allergy Band on, Call device within reach, Bed in low position, Wheels locked, Upper/Half-Length side-rails up, Visitor at bedside, Safety level maintained Allergy Band on and Verified Yes Patient ID Band on and Verified Yes Implants Verified Yes Pacemaker/AICD Verified Yes Site Verified by Patient/Family Yes Last Fluid Intake 12/22/2022 21:00 Last Food Intake 12/21/2022 21:00 12/22/2022 14:29 EDT Surgery Scheduled On Date/Time 12/23/2022 10:00 Arrival Time the Day of Surgery 12/23/2022 8:00 Notification Attempts 12/22/22 1147 LM RE ARRIVAL TIME...MAURICIO (Modified) Admission Note-Nursing Date\Time Correction 12/22/2022 11:46 EDT Patient Aware Date/Time Of Surgery Yes Patient Aware of Arrival Time Yes Pre-Op Patient Education NPO after midnight, No smoking after midnight, No jewelry, Responsible Green Party, Two adults to accompany patients 0-12 years of age, Aware of surgery location, Pre-op education done, No ordered medications, Instructed to bring home medications SN - Preprocedure Comments Spoke with patient, Verbalizes/Nonverbally indicates understanding Notification Attempts Date\Time Correction Admission Note-Nursing Date\Time Correction 12/22/2022 8:57 EDT Primary Care Phone Message RE: Misty Banerjee, PENCIL INSPECTOR: Vacation 12/22/2022 8:54 EDT Primary Care Phone Message Urology referral (Modified) . Assessment and Plan [place] [employer] Anesthesiologists (ASA) physical status classification: Class III. Anesthetic Preoperative Plan Premedication: intravenous. Anesthetic technique: MAC. Induction: intravenously. Maintenance airway: Mask. Postoperative pain management: Per surgeon. Risks discussed: nausea, vomiting, headache, sore throat, dental injury, hypotension, allergic reaction, serious complications. Informed consent: signed by patient. Notes: Patient identified, medical record reviewed, medical history reviewed with patient. Assessment performed. Plan prescribed discussed with patient including risks. Inquiries invited and addressed. Consent signed by patient, pt agrees to proceed with sedation for planned procedure, possible GA if not tolerated. Digitally Signed by CELIO PINZON MD on 12/23/2022 09:59 AM [id number] Discharge instructions Patient Education 12/18/2022 11:21:42 1-[facility] Discharge Instructions Template (02/2018)(CUSTOM) [place] SAME DAY SURGERY DISCHARGE INSTRUCTIONS PLEASE FOLLOW THE INSTRUCTIONS BELOW MARKED WITH AN X: _x__ Regular Diet: Start with clear liquids, then soup and crackers and gradually add other foods. _x__ Drink extra fluids. ___ Special Diet Instructions: ___ ACTIVITY: ___ Avoid stress to suture line. Since you have had an anesthetic, it would be advisable not to drive, drink alcohol, or make major decisions over the next 24 hours. You may require more rest tonight and tomorrow. ___ May resume regular activity as tolerated. ___ Restrict activity as follows: ___ ___ Walk Only ___ ___ Do not go up and down stairs. ___ Do not ride in car until ___ ___ Do not drive car. ___ Do not have sexual intercourse. ___ No heavy lifting, pushing or straining. ___ Other: ___ BATHING/SHOWERING: ___ Sponge bathe until office visit. ___ Sitting in tub of warm water may relieve discomfort. ___ May tub bathe ___ May shower ___ On day after surgery sit in tub of warm water to soak off dressing. DRESSING: ___ Keep operative area dry and clean for ___ ___ Check the operative area for signs of bleeding. Apply pressure to the bleeding site if necessary and call your physician. ___ Change dressing as necessary using sterile dressing material or bandaid. ___ Reinforce dressing as necessary. ___ Change and care for wound as follows: ___ ___ Wear bra for ___ days following breast surgery for comfort. ___ Change drip pad as needed. ___ Wear scrotal support for comfort. WATCH FOR SIGNS OF INFECTION: (Usually appears 36-48 hours after surgery) Increased temperature (101 degrees Fahrenheit or higher) Redness or swelling Increased pain Foul odor or drainage. If you have any questions, please call your doctor at the number listed on your follow up instructions. Follow all instructions given to you by your physician. Please complete and return the survey you will be receiving in the mail to help us better serve our patients. Form: 1522 ([id number]) R: 08/31 Follow Up Care 12/05/2022 08:32:50 With:CLARA LLOYD MD Address: [address] [place] [address] [facility] [place] [address]- When: Unknown Comments:Follow-up as scheduled [facility] 07-27-2023 Anesthesiology Consult note Patient: NATTY ZAIDI Age: 62 years Sex: Male : 1960 Associated Diagnoses: None Author: LUISA GARCIA DO Assessment Postanesthesia assessment Vitals. Mental status: at preoperative baseline. Respiratory function: respirations are non-labored, stable. Respiratory support: none. CV function: stable. Cardiovascular support: none. Pain: Post op control satisfactory. Nausea status: satisfactory. Postoperative hydration status: within normal limits. Notes: pt sufficentyl recovered from anesthesia to participate in the evaluation. No follow up careneeded. No complications post-anesthesia. Digitally Signed by LUISA GARCIA DO on 12/18/2022 12:10 PM [id number] Summary of episode note Discharge Instructions Thank you for allowing [facility] to assist you with your healthcare needs. The following is importantdischarge information regarding your hospital visit. Your Care Team MISTY BANERJEE APRN-PREPARED FOODS TEAM LEADER What to do next Scheduled Follow-Up Appointments Appointment Type When With Where Contact InformationSurgical Pre-Test 12/19/2022 09:00 AM EDT Main PAT Surgery 12/23/2022 10:15 AM EDT Main OR [phone] POD 15 02/10/2023 02:45 PM EDT CHELI ADAMS DPM [facility] [place] Follow Up Appointments Follow Up with CLARA LLOYD MD When Why: Follow-up as scheduled Where: [address] [facility] [place] [address]- Allergies Augmentin (Hives) Versed (Confusion) Medications Please ask your primary doctor or pharmacist before taking any other medication not listed, including over the counter drugs, herbal medications, vitamins and or supplements as they may interact withyour home medications. What How Much When Why Instructions Last Dose Unchanged acetaminophen (Tylenol Extra Strength 500 mg oral tablet) 2 tab(s) by mouth Every 6 hours as needed for as needed for pain Unchanged citalopram (citalopram 10 mg oral tablet) 1 tab(s) by mouth Once a day (in the morning) Unchanged gabapentin (gabapentin 100 mg oral capsule) 1 cap by mouth Two (2) times a day Diabetes type 2, controlled Duration: 90 Days Take 100mg in the AM and 200mg (2 tabets) qHS Unchanged glimepiride (glimepiride 1 mg oral tablet) 1 tab(s) by mouth Two (2) times a day Duration: 90 Days Unchanged metFORMIN (metFORMIN 500 mg oral tablet (IR)) 1 tab(s) by mouth Two (2) times a day Unchanged pantoprazole (pantoprazole 20 mg oral enteric coated tablet) 1 tab(s) by mouth Daily at bedtime Unchanged phenazopyridine (AZO Urinary Pain Relief Max Strength) by mouth Three (3) times a day after meals Unchanged pramipexole (pramipexole 0.5 mg oral tablet) 1 tab(s) by mouth Once a day (in the evening) Take 1 tab in the PM Please take this list to your next doctor s visit. Bring all medications you take, including over the counter medications, herbals and other supplements with you to your doctor s visit. Patients and families are reminded to discard old lists and to update any records with all medication providers or retail pharmacies. Education Materials [facility] SAME DAY SURGERY DISCHARGE INSTRUCTIONS PLEASE FOLLOW THE INSTRUCTIONS BELOW MARKED WITH AN X: _x__ Regular Diet: Start with clear liquids, then soup and crackers and gradually add other foods. _x__ Drink extra fluids. ___ Special Diet Instructions: ___ ACTIVITY: ___ Avoid stress to suture line. Since you have had an anesthetic, it would be advisable not to drive, drink alcohol, or make major decisions over the next 24 hours. You may require more rest tonight and tomorrow. ___ May resume regular activity as tolerated. ___ Restrict activity as follows: ___ ___ Walk Only ___ ___ Do not go up and down stairs. ___ Do not ride in car until ___ ___ Do not drive car. ___ Do not have sexual intercourse. ___ No heavy lifting, pushing or straining. ___ Other: ___ BATHING/SHOWERING: ___ Sponge bathe until office visit. ___ Sitting in tub of warm water may relieve discomfort. ___ May tub bathe ___ May shower ___ On day after surgery sit in tub of warm water to soak off dressing. DRESSING: ___ Keep operative area dry and clean for ___ ___ Check the operative area for signs of bleeding. Apply pressure to the bleeding site if necessary and call your physician. ___ Change dressing as necessary using sterile dressing material or bandaid. ___ Reinforce dressing as necessary. ___ Change and care for wound as follows: ___ ___ Wear bra for ___ days following breast surgery for comfort. ___ Change drip pad as needed. ___ Wear scrotal support for comfort. WATCH FOR SIGNS OF INFECTION: (Usually appears 36-48 hours after surgery) Increased temperature (101 degrees Fahrenheit or higher) Redness or swelling Increased pain Foul odor or drainage. If you have any questions, please call your doctor at the number listed on your follow up instructions. Follow all instructions given to you by your physician. Please complete and return the survey you will be receiving in the mail to help us better serve our patients. Form: 1522 ([id number]) R: 08/31 Additional Information VACCINATE! IT SAVES LIVES! Members of the community who have not yet received the COVID-19 vaccine and would like to receive it can visit one of [facility] vaccine clinics. There are many vaccine clinic locations within the [facility]. For locations and available times, please visit https://gettheshot.coronavirus.[place].gov/. It is important to note that some COVID mobile vaccine clinics are held outdoors and may be canceled in rainy or stormy conditions. To learn more about pediatric vaccinations (ages 5-11), we invite you to visit the [facility] webpage. https://www.[employer].org/pages/6171-Juqkc-Fjrtfpmjczf-Wuinnezkfl-Kbnvk-Pqm stions.htmlTo learn more about the COVID-19 vaccine, we invite you to visit the CDC website for a list of frequently asked questions.https://www.cdc.gov/coronavirus/2019-ncov/vaccines/faq.html [facility] Patient Portal Access Instructions: Stay connected with your healthcare team and access your personal medical information anytime with the [employer] Patient Portal. Please follow the directions below to create your [employer] account: 1.Access the email account you provided upon registration to the hospital/physician office.2.Look for an invitation email from [facility].3.Open the email and access the invitation link: AcceptInvitation to [employer].4.Fill in the required jones to create your account. To access your account, visit [employer]. Click the blue button labeled Access Patient Portal and then log in with the username and password that you created in the steps above. You will be able to view your test results, lab results, a summary of your visits, upcoming appointments and more. There is also a convenient messaging option where you can send secure messages to your p rovider. In addition, you will have the ability to download any documents or summaries to your computer and/or send the information securely to a physician. Remember that your healthcare information is confidential, so carefully consider who you will allowto register on the [facility] for access to your information. You can also access the [facility] on the [facility] darrius. Simply click on Patient Portal and then log into your account. If you would like to receive a full copy of your medical records, please contact the [facility] Medical Records Department by calling [phone], Thursday through Thursday between 8 a.m. and 4:30 p.m. HOW TO SAFELY DISPOSE OF PRESCRIPTION MEDICATIONS Please use one of the following methods to safely dispose of your unused medications. 1.Use a drug disposal kit: the drug disposal pouch allows you to safely discard your old and unuseddrugs. Ask your nurse to give you one when you are discharged.2.Visit a local take-back location: Many local pharmacies and police departments have programs that collect old and unwanted prescriptiondrugs. Call your local pharmacy or go to http://[employer]/9T8Kf5t to find one close to you.3.Make use of household items: Use cat litter or old coffee grounds to dispose medications if other options arenot available. Mix your drugs with these household products, seal them in an airtight container andthrow it into the garbage. Call [facility]: [phone] to be sure your drugs can be disposed of in this way. Some medicines may require a different approach.4.Never flush your medications down the toilet. IF YOU HAVE BEEN PRESCRIBED AN OPIOID FOR PAIN If you have been prescribed an opioid (such as hydrocodone, oxycodone or morphine), it is critical to understand the possible side effects and risks of opioid pain medications. Even when taken as directed, opioids can have several side effects including: Tolerance, meaning you might need to take more of a medication for the same pain relief. Nausea, vomiting and/or constipation. Sleepiness, dizziness, dry mouth, confusion, depression or itching. Physical dependence, meaning you have withdrawal symptoms when a medication is stopped, can develop within a few days. KNOW YOUR RESPONSIBILITIES It is important to know exactly how much and how often to take the opioid pain medications you are prescribed. Never take opioids in higher amounts or more often than prescribed. Do not combine opioids with alcohol or other drugs that cause drowsiness, such as benzodiazepines, also known as benzos, including diazepam and alprazolam, muscle relaxants or sleep aids. Never sell or share prescription opioids. This is illegal. Store opioids in a secure place and out of reach of others (including children, family, friends and visitors). The last page of this document has been signed and retained as a CHART COPY. Signatures Patient Education Materials 1-SDS Discharge Instructions Template (02/2018)(CUSTOM) Medication Leaflets My discharge plan and instructions have been reviewed and explained to me and I,NATTY ZAIDI understand my current condition and have read and understand these discharge instructions. I have received a written copy of the plan/instructions. If I have questions, I am aware that I should contact my doctor. Patient/Safety Director Signature: Date/Time: Relationship to Patient: Witness Name/Signature: [id number] Note Date of Service 12/18/2022 Procedure Name EGD with biopsy Referring Provider Washington Reardon Consent Prior to beginning the procedure, and informed consent conference was held with the patient at the bedside. All the risks, benefits, alternatives to this procedure were discussed at length. The patient seemed to understand the risk and gave us informed consent via signature Indication Heartburn, history of acid reflux, concern for portal hypertension Location OR 1 Pre-Procedure Exam Prior to the procedure being performed, history and physical was performed. All the risks and benefits of the procedure were discussed at length with the patient and informed consent was obtained. Timeout time was performed prior to beginning the procedure. Physical exam was repeated prior to the procedure. Cardiac exam revealed a regular rate and rhythm no murmurs, rubs, or gallops. Respiratory exam was clear throughout. Abdominally the patient was soft and nontender. There is no rebound or guarding present. The patient was not taking anticoagulation prior to the procedure. The patient did not require antibiotic prophylaxis. After obtaining informed consent, the Olympus endoscope was passed under direct vision into the second portion of the duodenum. He tolerated the procedure well Procedural Sedation Propofol per anesthesia staff Post-Procedure Exam To recovery without complication Findings The Olympus endoscope was passed under direct vision into the esophageal lumen and passed through anormal-appearing esophagus into the gastric lumen. Retroflexion view was performed notable for small hiatal hernia as well as a snakeskin appearance which was quite subtle possibly consistent with portal hypertensive gastropathy. There were no definitive gastric varices. I advanced the scope into the antrum of the stomach with mild gastritis noted. Biopsies were obtained to rule out H. pylori. Advance scope into the duodenal bulb and second portion both of which appeared normal. I then slowly withdrew the scope with no additional abnormalities noted. I withdrew the scope back into the esophageal lumen with no esophageal varices noted. His GE junction appeared normal. Air was suctioned the scope was then withdrawn. Impression The entire examined esophagus appeared normal. Very mild portal hypertensive gastropathy noted primarily in the fundus of the stomach. No definitive gastric or esophageal varices. Mild gastritis. Biopsied to rule out H. pylori. The entire examined duodenum appeared normal. Complications None Estimated Blood Loss 5 cc Assessment/Plan GERD Follow Up/Recommendation Await pathology results. Plan is for colonoscopy in the coming weeks. We will continue current dosing of PPI therapy. Outpatient follow-up with will be arranged. Okay for discharge from GI standpoint once all criteriabeen met. Digitally Signed by CLARA LLOYD MD on 12/18/2022 10:31 AM [id number] Anesthesiology Consult note Patient: NATTY ZAIDI Age: 62 years Sex: Male : 1960 Associated Diagnoses: None Author: JALEEL MCKENZIE MD Preoperative Information NPO > 8 hours Anesthesia history Patient's history: negative. Health Status Allergies: Nonallergic Reactions (Selected) Severe Augmentin- Hives. Severity Not Documented Versed- Confusion., Allergies (2) ActiveReaction AugmentinHives VersedConfusion Current medications: (Selected) Inpatient Medications Ordered Flagyl IVPB: Start: 08/25/17 6:00:00 EDT, Dose = 500 mg, = 100 mL, IV Piggyback, PREOP pharm, 12 hour(s), Stop: 08/25/17 17:59:00 EDT, Rate: 100 mL/hr, Infuse over: 60 minute(s), 0 LR 1,000 mL: Start: 12/18/22 5:00:00 EDT, 18 hour(s), Stop date 12/18/22 22:59:00 EDT, Rate: 20 mL/hr, 12/18/22 5:00:00 EDT Xylocaine HCl 1% injectable solution: Start: 08/25/17 6:00:00 EDT, Dose = 2.5 mg, = 0.25 mL, Intradermal, PREOP pharm, 12 hour(s), Stop: 08/25/17 17:59:00 EDT, 0 Prescriptions Prescribed gabapentin 100 mg oral capsule: Dose : 100 mg = 1 cap(s), Oral, BID, Take 100mg in the AM and 200mg(2 tabets) qHS, # 180 cap(s), 0 Refill(s), [facility]: [id number], Diabetes type 2, controlled, 185.4, cm, 11/28/22 11:00:00 EDT, Height, 104.9, kg, 11/28/22 11:00:00 EDT, Dosing... glimepiride 1 mg oral tablet: Dose : 1 mg = 1 tab(s), Oral, BID, # 180 tab(s), 0 Refill(s), [facility]: [id number], 185.4, cm, 11/28/22 11:00:00 EDT, Height Documented Medications Documented AZO Urinary Pain Relief Max Strength: Oral, TIDPC, 0 Refill(s) Tylenol Extra Strength 500 mg oral tablet: Dose : 1,000 mg = 2 tab(s), Oral, q6hr, PRN as needed for pain, # 120 tab(s), 0 Refill(s) citalopram 10 mg oral tablet: Dose : 10 mg = 1 tab(s), Oral, qAM, # 30 tab(s), 0 Refill(s) metFORMIN 500 mg oral tablet (IR): Dose : 500 mg = 1 tab(s), Oral, BID, # 180 tab(s), 0 Refill(s) pantoprazole 20 mg oral enteric coated tablet: Dose : 20 mg = 1 tab(s), Oral, qHS, # 90 tab(s), 0 Refill(s) pramipexole 0.5 mg oral tablet: Dose : 0.5 mg = 1 tab(s), Oral, qPM, Take 1 tab in the PM, # 270 tab(s), 0 Refill(s), Medications (1) Active Scheduled: (0) Continuous: (1) Lactated Ringers 1,000 mL 1,000 mL, Intravenous, 20 mL/hr PRN: (0) Problem list: Medical Anxiety / SNOMED CT 63105086 / Confirmed Arthritis / SNOMED CT 2170194 / Confirmed BMI 32.0-32.9,adult / SNOMED CT 447643079 / Confirmed Depression / SNOMED CT 37847175 / Confirmed Diabetes mellitus with neuropathy / SNOMED CT 754162566 / Confirmed Dysuria / SNOMED CT 74067893 / Confirmed Family history of colorectal cancer / SNOMED CT 2711987157 / Confirmed National Institutes of Health (NIH) Stroke Scale gaze score 1, partial gaze palsy; gaze is abnormalin one or both eyes, but forced deviation or total gaze paresis is not present / SNOMED CT 162627277 / Confirmed Foot pain / SNOMED CT 075736095 / Confirmed Acid reflux / SNOMED CT 819522119 / Confirmed GERD (gastroesophageal reflux disease) / SNOMED CT 870796033 / Confirmed Glasses / SNOMED CT 4552995402 / Confirmed Headache / SNOMED CT 26401933 / Confirmed HLD (hyperlipidemia) / SNOMED CT 41676478 / Confirmed HTN (hypertension) / SNOMED CT 8233900518 / Confirmed Ingrown toenail of bilateral feet / SNOMED CT 0392612942 / Confirmed Hepatomegaly / SNOMED CT 321981153 / Confirmed Numbness and tingling / SNOMED CT 5519831279 / Confirmed Pain of toes of bilateral feet / SNOMED CT 642548453265308 / Confirmed Thrombocytopenia / SNOMED CT 5084413841 / Confirmed Colon polyps / SNOMED CT 963574257 / Confirmed Preoperative clearance / SNOMED CT 782344687 / Confirmed Lumbar herniated disc / SNOMED CT 142825628 / Confirmed RLS (restless legs syndrome) / SNOMED CT 30593396 / Confirmed Restless leg / SNOMED CT 94213593 / Confirmed Seasonal allergies / SNOMED CT 3557635221 / Confirmed Sleep apnea / SNOMED CT 037900622 / Confirmed Smokers' cough / SNOMED CT 50886908 / Confirmed Bladder spasms / SNOMED CT 584366767 / Confirmed Splenomegaly / SNOMED CT 15009139 / Confirmed Thrombocytopenic / SNOMED CT 981417140 / Confirmed Diabetes type 2, controlled / SNOMED CT 224085106 / Confirmed Urinary urgency / SNOMED CT 176094577 / Confirmed Engages in vaping / SNOMED CT 3870291079 / Confirmed Vertigo / SNOMED CT 4205943518 / Confirmed, Active Problems (42) Acid reflux Anxiety Arthritis Bladder spasms Blurry vision BMI 32.0-32.9,adult Colon polyps Constipation Depression Diabetes Diabetes mellitus with neuropathy Diabetes type 2, controlled Diarrhea Dysuria Engages in vaping Family history of colorectal cancer Foot pain GERD (gastroesophageal reflux disease) Glasses Headache Hepatomegaly Herniated cervical disc HLD (hyperlipidemia) HTN (hypertension) Ingrown toenail of bilateral feet Lumbar herniated disc National Institutes of Health (NIH) Stroke Scale gaze score 1, partial gaze palsy; gaze is abnormal Numbness and tingling Pain of toes of bilateral feet Preoperative clearance Restless leg RLS (restless legs syndrome) Seasonal allergies Sleep apnea Smokers' cough Splenomegaly Thrombocytopenia Thrombocytopenic Urinary urgency Vapes nicotine containing substance Vertigo Vision loss, bilateral Histories Past Medical History: Active National Institutes of Health (NIH) Stroke Scale gaze score 1, partial gaze palsy; gaze is abnormalin one or both eyes, but forced deviation or total gaze paresis is not present (357811646): Onset in 2000 at 39 years. 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 / WAS ON DIOVAN FOR 2-3 YEARS /IT WAS D/C'D D/T HYPOTENSION Sleep apnea (659338927) Smokers' cough (09040134) Colon polyps (151722950) Arthritis (4437566) Lumbar herniated disc (806947637) Numbness and tingling (2451134510) Comments: 08/11/2017 EDT 10:33 SAMMI Ramírez R LEG / AFTER PROLONGED STANDING Headache (77916745) Comments: 08/11/2017 EDT 10:33 SAMMI Raímrez SINUS Anxiety (24094895) RLS (restless legs syndrome) (23786538) Vertigo (2584652129) Comments: 08/11/2017 EDT 10:41 SAMMI Ramírez PT TO HAVE CAROTID STUDIES & ECHO 08/21/17 Acid reflux (901756385) Glasses (5953175232) Comments: 10/09/2017 EDT 15:47 SAMMI Valle reading Thrombocytopenia (3968521169) Comments: 05/09/2022 EST 19:06 EST - [place] 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 Pneumonia (905778815): Resolved. High blood pressure (42876842): Resolved. Comments: 10/09/2017 EDT 15:47 SAMMI Valle after stroke but no meds for a long time Family History: Cancer Mother Grandparent Tuberculosis Father Heart disease Grandparent Alcohol abuse Mother Father Brother Grandparent Migraine Brother Multiple sclerosis Brother Sleep apnea Daughter Sepsis Father PCOS- polycystic ovary syndrome Daughter Mononucleosis dacryoadenitis Brother Procedure history: Colectomy (47644163) on 10/13/2017 at 56 Years. Laminectomy (7128440611) in 2017 at 56 Years. Cervical discectomy (926962098) in 2000 at 40 Years. Laminectomy (2503869166) in 1995 at 35 Years. Deviated septum ([id number]) in 1989 at 29 Years. Tonsillectomy and adenoidectomy (714498772). Comments: 08/11/2017 10:38 SAMMI Ramírez UVULECTOMY Colonoscopy normal (468350661). Comments: 10/09/2017 15:39 EDT - SAMMI Perez multiple Arthroscopic knee operation (7729501313). Comments: 05/09/2022 8:53 EST - SAMMI Perez right Uvula operation (974115199). EGD - Esophagogastroduodenoscopy (6395686610). Social History Social & Psychosocial Habits Alcohol 12/18/2022Risk Assessment: Denies Alcohol Use 12/18/2022 Use: Past Substance Abuse 12/18/2022Risk Assessment: Denies Substance Abuse 12/18/2022 Use: Never Tobacco 12/18/2022 Tobacco Use: Former smoker, quit more, Vaping Product in Last Type: Electronic Cigarettes ([place] Home/Environment 12/18/2022 Domestic Concerns None Living situation: Home/Independent Current Home Treatments None Special Services and Community Resources None Spouse Name August Marital Status of Patient if Patient Independent Adult: Nutrition/Health 12/18/2022 Caffeine intake amount: 6 cups/daily . Physical Examination Vital Signs(last 24 hrs) Last Charted Resp Rate 18 br/min (DEC 18 08:22) FRC406 mmHg (DEC 18 08:22) DBP75 mmHg (DEC 18 08:22) Measurements from flowsheet : Measurements 12/18/2022 8:22 EDT Height 185.4 cm Height in inches 73 inch(es) Admission Weight 101.9 kg Weight Lbs 224.2 lb Weight Method Actual Davidson Body Weight 79.88 kg Type of Scale Used Bed scale Admission Body Mass Index 29.65 m2 12/18/2022 8:16 EDT Body Mass Index 32.17 kg/m2 Body Mass Index 32.17 kg/m2 General: Alert and oriented. Airway: Mallampati classification: II (soft palate, fauces, uvula visible). Dentition Evaluation: Intact. Respiratory: Lungs are clear to auscultation, Respirations are non-labored. Cardiovascular: Normal rate, Regular rhythm. Heart Sounds: Normal. Neurologic: Alert. Review / Management Results review: Labs (Last four charted values) WBC 4.6(DEC 18) Hgb 14.3(DEC 18) Hct 41.6(DEC 18) Plt L 93(DEC 18) . Documentation reviewed: Current records. Assessment and Plan [place] [employer] Anesthesiologists (ASA) physical status classification: Class II. Anesthetic Preoperative Plan Premedication: intravenous. Anesthetic technique: MAC. Induction: intravenously. Postoperative pain management: Per surgeon. Informed consent: signed by patient. Digitally Signed by JALEEL MCKENZIE MD on 12/18/2022 09:51 AM [id number] Note ORIGINAL EXAMINATION: COMPLETE ABDOMINAL ULTRASOUND 05/30/2022 7:08 am COMPARISON: None. HISTORY: ORDERING SYSTEM PROVIDED HISTORY: Reason for Exam: R16.0 - HEPATOMEGALY, NOT ELSEWHERE CLASSIFIED low platelets FINDINGS: LIVER: The liver is enlarged measuring 21.5 cm and demonstrates increased echogenicity without evidence of intrahepatic biliary ductal dilatation. BILIARY SYSTEM: Gallbladder is unremarkable without evidence of pericholecystic fluid, wall thickening or stones. Negative sonographic Delacruz's sign. Common bile duct is within normal limits measuring 3 mm. KIDNEYS: The kidneys are unremarkable in appearance without evidence of hydronephrosis. PANCREAS: Visualized portions of the pancreas are unremarkable. The tail of the pancreas is limited secondary to overlying bowel gas. SPLEEN: The spleen is enlarged measuring 18.8 x 17.5 x 8.5 cm. IVC: The IVC is patent. AORTA: Aorta is patent without aneurysm. OTHER: No evidence of ascites. IMPRESSION: Hepatosplenomegaly. Increased echogenicity of the liver on the basis of hepatic steatosis versus other hepatocellular disease. Interpreted by: Ezequiel Watson MD Preliminary Report By: Ezequiel Watson MD Electronically signed By Ezequiel Watson MD Dictated Date: 05/30/2022 3:23:01 PM Prelim Date: 05/30/2022 3:29:39 PM Sign Date: 05/30/2022 3:29:39 PM Ordering Provider: W[facility] REARDON [id number] Note ORIGINAL EXAMINATION: COMPLETE ABDOMINAL ULTRASOUND 05/30/2022 7:08 am COMPARISON: None. HISTORY: ORDERING SYSTEM PROVIDED HISTORY: Reason for Exam: R16.0 - HEPATOMEGALY, NOT ELSEWHERE CLASSIFIED low platelets FINDINGS: LIVER: The liver is enlarged measuring 21.5 cm and demonstrates increased echogenicity without evidence of intrahepatic biliary ductal dilatation. BILIARY SYSTEM: Gallbladder is unremarkable without evidence of pericholecystic fluid, wall thickening or stones. Negative sonographic Delacruz's sign. Common bile duct is within normal limits measuring 3 mm. KIDNEYS: The kidneys are unremarkable in appearance without evidence of hydronephrosis. PANCREAS: Visualized portions of the pancreas are unremarkable. The tail of the pancreas is limited secondary to overlying bowel gas. SPLEEN: The spleen is enlarged measuring 18.8 x 17.5 x 8.5 cm. IVC: The IVC is patent. AORTA: Aorta is patent without aneurysm. OTHER: No evidence of ascites. IMPRESSION: Hepatosplenomegaly. Increased echogenicity of the liver on the basis of hepatic steatosis versus other hepatocellular disease. Interpreted by: Ezequiel Watson MD Preliminary Report By: Ezequiel Watson MD Electronically signed By Ezequiel Watson MD Dictated Date: 05/30/2022 3:23:01 PM Prelim Date: 05/30/2022 3:29:39 PM Sign Date: 05/30/2022 3:29:39 PM Ordering Provider: [place]07-07-2022 History of Present illness Narrative* Lorie Sanchez RN - 11/28/2021 4:30 PM EDT Discharge instructions reviewed with patient and , no further questions. Patient ambulated without any dizziness. Patient tolerated fluids and crackers without any nausea. IV removed and awaitingdischarge documented in this [facility] Work Phone: [phone] Hospital Discharge instructions* Instructions* Hai Calero MD - 11/28/2021 Images from the original note were not included. Take tylenol, ibuprofen, and prescribed medication as needed for post-operative discomfort. Cystoscopy: What to Expect at Home Your Recovery A cystoscopy is a procedure that lets a doctor look inside of the bladder and the urethra. The urethra is the tube that carries urine from the bladder to outside the body. The doctor uses a thin, lighted tool called a cystoscope. Your bladder is filled with fluid. This stretches the bladder so thatyourdoctor can look closely at the inside of your bladder. After the cystoscopy, your urethra may be sore at first, and it may burn when you urinate for the first few days after the procedure. You may feel the need to urinate more often, and your urine may be pink. These symptoms should get better in 1 or 2 days. You will probably be able to go back to most of yourusual activities in 1 or 2 days. This care sheet gives you a general idea about how long it will take for you to recover. But each person recovers at a different pace. Follow the steps belowto get better as quickly as possible. How can you care for yourself at home? Activity Rest when you feel tired. Getting enough sleep will help you recover. Try to walk each day. Start by walking a little more than you did the day before. Bit by bit, increase the amount you walk. Walking boosts blood flow and helps prevent pneumonia and constipation. You may shower and take baths as usual. Diet You can eat your normal diet. If your stomach is upset, try bland, low-fat foods like plain rice, broiled chicken, toast, and yogurt. Drink plenty of fluids (unless your doctor tells you not to). Medicines Take pain medicines exactly as directed. ? If the doctor gave you a prescription medicine for pain, take it as prescribed. ? If you are not taking a prescription pain medicine, ask your doctor if you can take an [id number] medicine. If you think your pain medicine is making you sick to your stomach: ? Take your medicine after meals (unless your doctor has told you not to). ? Ask your doctor for a different pain medicine. If your doctor prescribed antibiotics, take them as directed. Do not stop taking them just because you feel better. You need to take the full course of antibiotics. Follow-up care is a lopez part of your treatment and safety. Be sure to make and go to all appointments, and call your doctor if you are having problems. It's also a good idea to know your test resultsand keep alist of the medicines you take. When should you call for help? Call 911 anytime you think you may need emergency care. For example, call if: You passed out (lost consciousness). You have severe trouble breathing. You have sudden chest pain and shortness of breath, or you cough up blood. You have severe belly pain. Call your doctor now or seek immediate medical care if: You are sick to your stomach or cannot keep fluids down. Your urine is still red or you see blood clots after you have urinated several times. You have trouble passing urine or stool, especially if you have pain or swelling in your lower belly. You have signs of a blood clot, such as: ? Pain in your calf, back of the knee, thigh, or groin. ? Redness and swelling in your leg or groin. You develop a fever or severe chills. You have pain in your back just below your rib cage. This is called flank pain. Watch closely for changes in your health, and be sure to contact your doctor if: You have pain or burning when you urinate. A burning feeling is normal for a day or two after the test, but call if it does not get better. You have a frequent urge to urinate but can pass only small amounts of urine. Your urine is pink, red, or cloudy, or smells bad. It is normal for the urine to have a pinkish color for a few days after the test, but call if it does not get better. Where can you learn more? Go to [email or web address] and sign in to your [employer] account. Enter C842 in the Search Health Information box to learn more about Cystoscopy: What to Expect at Home. If you do not have an account, please click on the Sign Up Now link. Current as of: March 11, 2021 Content Version: 13.3 [employer]. Care instructions adapted under license by [employer]. If you have questions about a medical condition or this instruction, always ask your healthcare professional. [employer] disclaims any warranty or liability for your use of this information. documented in this [facility] Work Phone: Evaluation + Plan note No data available for this section [facility] Evaluation + Plan note Future Appointments [facility] Evaluation + Plan note Future Appointments Appointment Date:02/10/2023 02:45:00 PM Scheduled Provider:CHELI ADAMS DPM Location:[facility] [place] Appointment Type:POD 15 Future Scheduled Tests Radiology* US Bladder 08/15/22 [facility] Evaluation note* Diagnosis Urgency of urination Pelvic pain in male Abdominal pain, other specified site documented in this encounter [facility] Work Phone: Hospital Discharge instructions No data available for this section [facility] Note* JALEEL NINO MD: SIGN, VERIFY Event Display: VL - ABIs (ankles only) - CV [facility] Progress note No data available for this section [facility] Reason for referral (narrative)No reason for referral information availableW[facility] Work Phone: Advance Directives No Advanced Directives Records FoundLatest Code Status on File Code Status Date Activated Date Inactivated Comments Full Code 11/28/2021 1:02 PM Summary Purpose Family History No Family History Records Found No data available for this section No data available for this section No Family History Records FoundNo Family History Records FoundNo Family History Records Found No data available for this section No data available for this section No Family History Records FoundNo Family History Records FoundNo Family History Records Found Chief Complaint and Reason for Visit Chief Complaint Admit Date Gastroesophageal reflux disease (GERD) [facility] 2024 10:57am E-ORDER August 17, 2024 12: 22pm Reason for Visit Admit Date Cirrhosis August 17, 2024 10: 57am Gastroesophageal reflux disease August 172024 10:57am Chief Complaint Admit Date Gastroesophageal reflux disease (GERD) [facility] 2024 10:57am E-ORDER August 17, 2024 12: 22pm 4 M FU October 19, 2024 7:21a m Chief Complaint Admit Date Gastroesophageal reflux disease (GERD) [facility] 2024 10:57am E-ORDER August 17, 2024 12: 22pm 4 M FU October 19, 2024 7:21a m Liver Issues November 01, 2024 1:52 pm Reason for Visit Admit Date Cirrhosis August 17, 2024 10: 57am Gastroesophageal reflux disease August 172024 10:57am Cirrhosis October 19, 2024 7:21a m Gastroesophageal reflux disease September 7:21am Cirrhosis November 01, 2024 1:52 pm Chief Complaint Admit Date Gastroesophageal reflux disease (GERD) [facility] 2024 10:57am E-ORDER August 17, 2024 12: 22pm 4 M FU October 19, 2024 7:21a m Liver Issues November 01, 2024 1:52 pm INT LAB ORDERS November 01, 2024 3:00 pm Reason for Visit Admit Date Cirrhosis August 17, 2024 10: 57am Gastroesophageal reflux disease August 172024 10:57am Cirrhosis October 19, 2024 7:21a m Gastroesophageal reflux disease September 7:21am Metabolic dysfunction-associated steatoh epatitis (MASH) November 01, 2024 1:52pm Splenomegaly November 01, 2024 1:52 pm Thrombocytopenia November 01, 2024 1:52 pm Chief Complaint Admit Date Gastroesophageal reflux disease (GERD) [facility] 2024 10:57am E-ORDER August 17, 2024 12: 22pm 4 M FU October 19, 2024 7:21a m Liver Issues November 01, 2024 1:52 pm INT LAB ORDERS November 01, 2024 3:00 pm CIRRHOSIS November 10, 2024 7:41 am Chief Complaint Admit Date 4 M FU October 19, 2024 7:21a m Liver Issues November 01, 2024 1:52 pm INT LAB ORDERS November 01, 2024 3:00 pm CIRRHOSIS November 10, 2024 7:41 am 2 M FU December 30, 2024 8:5 8am Reason for Visit Admit Date Cirrhosis October 19, 2024 7:21a m Gastroesophageal reflux disease September 7:21am Metabolic dysfunction-associated steatoh epatitis (MASH) November 01, 2024 1:52pm Splenomegaly November 01, 2024 1:52 pm Thrombocytopenia November 01, 2024 1:52 pm Metabolic dysfunction-associated steatoh epatitis (MASH) December 30, 2024 8:58am Splenomegaly December 30, 2024 8:5 8am Thrombocytopenia December 30, 2024 8:5 8am Chief Complaint Admit Date 4 M FU October 19, 2024 7:21a m Liver Issues November 01, 2024 1:52 pm INT LAB ORDERS November 01, 2024 3:00 pm CIRRHOSIS November 10, 2024 7:41 am 2 M FU December 30, 2024 8:5 8am 3 M FU January 18, 2025 8: 51am Additional Source Comments Care Team (unrecognized sect ion and content) 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 [address] PCP - General Family Medicine 09/27/21 Team Status: Active Member Role Status Dates Misty Banerjee NP, ASSOCIATE PASTOR-C Primary Care Provider Activ e Team Status: Inactive Member Role Status Dates Misty Banerjee NP, ASSOCIATE PASTOR-C Primary Care Provider Activ e Start: August 17, 2024 End: August 17, 2024 Misty Banerjee NP, ASSOCIATE PASTOR-C Referring Provider Active Start: August 17, 2024 End: August 17, 2024 Dr. Werner Pérez DO Attending Provider Active Start: August 17, 2024 End: August 17, 2024 Team Status: Inactive Member Role Status Dates Misty Banerjee NP, ASSOCIATE PASTOR-C Primary Care Provider Activ e Start: August 17, 2024 End: August 17, 2024 Dr. Werner Pérez DO Attending Provider Active Start: August 17, 2024 End: August 17, 2024 Dr. Werner Pérez DO Referring Provider Active Start: August 17, 2024 End: August 17, 2024 Team Status: Inactive Member Role Status Dates Misty Banerjee NP ASSOCIATE PASTOR-C Referring Provider Active Start: October 19, 2024 End: October 19, 2024 Dr. Werner Pérez DO Attending Provider Active Start: October 19, 2024 End: October 19, 2024 Team Status: Inactive Member Role Status Dates Dr. Sergey Elliott MD Attending Provider Active Start: November 01, 2024 End: November 01, 2024 Team Status: Inactive Member Role Status Dates Misty Banerjee NP, ASSOCIATE PASTOR-C Primary Care Provider Activ e Start: November 01, 2024 End: November 01, 2024 Dr. Sergey Elliott MD Attending Provider Active Start: November 01, 2024 End: November 01, 2024 Dr. Sergey Elliott MD Referring Provider Active Start: November 01, 2024 End: November 01, 2024 Team Status: Inactive Member Role Status Dates Dr. Werner Pérez DO Attending Provider Active Start: November 10, 2024 End: November 10, 2024 Dr. Werner Pérez DO Referring Provider Active Start: November 10, 2024 End: November 10, 2024 Misty Banerjee ASSOCIATE PASTOR, ASSOCIATE PASTOR-C Primary Care Provider Activ e Start: November 10, 2024 End: November 10, 2024 Team Status: Active Member Role/Relationship Status Dates Misty Banerjee Primary Care Provider Active Team Status: Inactive Member Role/Relationship Status Dates Misty Banerjee ASSOCIATE PASTOR, ASSOCIATE PASTOR-C Referring Provider Active Start: October 19, 2024 End: October 19, 2024 Dr. Werner Pérez DO Attending Provider Active Start: October 19, 2024 End: October 19, 2024 Team Status: Inactive Member Role/Relationship Status Dates Dr. Sergey Elliott MD Attending Provider Active Start: November 01, 2024 End: November 01, 2024 Team Status: Inactive Member Role/Relationship Status Dates Misty Banerjee NP, ASSOCIATE PASTOR-C Primary Care Provider Activ e Start: November 01, 2024 End: November 01, 2024 Dr. Sergey Elliott MD Attending Provider Active Start: November 01, 2024 End: November 01, 2024 Dr. Sergey Elliott MD Referring Provider Active Start: November 01, 2024 End: November 01, 2024 Team Status: Inactive Member Role/Relationship Status Dates Dr. Werner Pérez DO Attending Provider Active Start: November 10, 2024 End: November 10, 2024 Dr. Werner Pérez DO Referring Provider Active Start: November 10, 2024 End: November 10, 2024 Misty Banerjee ASSOCIATE PASTOR, ASSOCIATE PASTOR-C Primary Care Provider Activ e Start: November 10, 2024 End: November 10, 2024 Team Status: Inactive Member Role/Relationship Status Dates Dr. Sergey Elliott MD Attending Provider Active Start: December 30, 2024 End: December 30, 2024 Misty Banerjee Primary Care Provider Active S tart: December 30, 2024 End: December 30, 2024 Misty Banerjee Referring Provider Active Star t: December 30, 2024 End: December 30, 2024 Team Status: Active Member Role/Relationship Status Dates MistyBOYD Ng NP Primary Care Provider Activ isidoro Team Status: Inactive Member Role/Relationship Status Dates Dr. Werner Pérez , Attending Provider Active Start: January 18, 2025 End: January 18, 2025 OBYD Rodgers NP Primary Care Provider Activ e Start: January 18, 2025 End: January 18, 2025 BOYD Rodgers NP Referring Provider Active Start: January 18, 2025 End: January 18, 2025 Ordered Prescriptions (unrec ognized section and content) Prescription Sig Dispensed Refills Start Date End Da te phenazopyridine (PYRIDIUM) 200 MG tablet Take 1 tablet by mouth 3 times daily as needed for Pain (burning with urination) 15 tablet 0 11/28/2021 12/03/2021 Scheduled Active and Recently Administ ered Medications (unrecognized section and content) Medication Order 11/26/2021 11/27/2021 11/28/2021 acetaminophen (TYLENOL) tablet 1,000 mg (COMPLETED) 1,000 mg, Oral, ONCE, 1 dose, On [place] 11/28/21 at 1330, Maximum dose of acetaminophen is 4000 mg from all sources in 24 hours. Do not administer if patient has taken tylenol <4 hours earlier. Do not give if contraindicated ie. patient has active liver disease or cirrhosis., Pre-op (day of surgery) 1350 (Given - Provid er: Britt Best RN) ceFAZolin (ANCEF) 3,000 mg in dextrose 5 % 100 mL IVPB 3,000 mg, IntraVENous, COUNTER MANAGER TO O.R., 1 dose, On [place] 11/28/21 at 1330, Antimicrobial Indications: Surgical Prophylaxis, Administer within 1 hour prior to incision. Repeat in 2 hours after initial dose if still intra-op., Pre-op (day of surgery) 1330 (Due) famotidine (PEPCID) tablet 20 mg (COMPLETED) 20 mg, Oral, ONCE, 1 dose, On [place] 11/28/21 at 1330, Pre-op (day of surgery) 1350 (Given - Provid er: Britt Best RN) gabapentin (NEURONTIN) capsule 100 mg (COMPLETED) 100 mg, Oral, ONCE, 1 dose, On [place] 11/28/21 at 1330, For Age >69, or Low GFR, Pre-op (day of surgery) 1350 (Given - Provid er: Britt Best RN) sodium chloride flush 0.9 % injection 5-40 mL 5-40 mL, IntraVENous, EVERY 12 HOURS SCHEDULED (2 times per day), First dose on [place] 11/28/21 at 2100, Until Discontinued, For Line Patency: Peripheral IV = 5 mL; Midline or Central Line = 10 mL/lumen. If following IV push medication, administer flush at same rate as the IV push. Flush volume is determined by type of infusion therapy being given. For non-viscous solutions use: Peripheral IV = 5 mL Midline or Central Line = 10 mL/lumen For viscous solutions (i.e. blood components, parenteral nutrition, contrast media, or after obtaining blood sample) use: Peripheral IV = 10 mL Midline or Central Line = 20 mL/lumen, Pre-op (day of surgery) 2100 (Due) sodium chloride flush 0.9 % injection 5-40 mL 5-40 mL, IntraVENous, EVERY 12 HOURS SCHEDULED (2 times per day), First dose on [place] 11/28/21 at 2100, Until Discontinued, For Line Patency: Peripheral IV = 5 mL; Midline or Central Line = 10 mL/lumen. If following IV push medication, administer flush at same rate as the IV push. Flush volume is determined by type of infusion therapy being given. For non-viscous solutions use: Peripheral IV = 5 mL Midline or Central Line = 10 mL/lumen For viscous solutions (i.e. blood components, parenteral nutrition, contrast media, or after obtaining blood sample) use: Peripheral IV = 10 mL Midline or Central Line = 20 mL/lumen, PACU only 2100 (Due) Continuous Medication Order 11/26/2021 11/27/2021 11/28/2021 lactated ringers infusion IntraVENous, at 50 mL/hr, CONTINUOUS, Starting on [place] 11/28/21 at 1330, Upon admission to sameday - please start iv if patient does not have iv access. Use 500ml NS for patients on dialysis., Pre-op (day of surgery) 1349 (New Bag - Prov ider: Britt Best RN) lactated ringers infusion IntraVENous, at 50 mL/hr, CONTINUOUS, Starting on [place] 11/28/21 at 1515, PACU only 1515 (Due) PRN Medication Order 11/26/2021 11/27/2021 11/28/2021 0.9 % sodium chloride bolus 500 mL (4.27 mL/kg), IntraVENous, at 1,000 mL/hr, Administer over 0.5 Hours, PRN, Anti-nausea, Starting on [place] 11/28/21 at 1449, PACU only 0.9 % sodium chloride infusion IntraVENous, at 5-250 mL/hr, PRN, if patient receiving piggyback infusions and maintenance fluids are not ordered OR KVO fluids to protect IV site / prevent frequent line interruptions/ long duration, Starting on [place] 11/28/21 at 1301, For piggyback infusion, administer at same rate as piggyback for a total of 25 mL. Enter 25 mL into dose field and piggyback rate into rate field of order. If piggyback is infusing at a rate less than 100 mL/hr, enter 25 mL into dose field and 100 mL/hr into rate field of order. For KVO fluids, enter rate of 20 mL/hr or less into rate field of order., Pre-op (day of surgery) diphenhydrAMINE (BENADRYL) injection 12.5 mg 12.5 mg, IntraVENous, ONCE PRN, 1 dose, Starting on [place] 11/28/21 at 1449, Until [place] 11/28/21 at 2359, Itching, for use Sameday and, PACU only fentaNYL (SUBLIMAZE) injection 25 mcg 25 mcg, IntraVENous, EVERY 5 MIN PRN, 3 doses, Starting on [place] 11/28/21 at 1449, Until Discontinued, Pain Moderate (4-6), Phase I and Phase II- Initial therapy for moderate pain (4-6). Restricted to a 90 minute time frame starting when the patient can verbally state their pain score. If after 2 doses the pain score does not decrease by more than one point, then call the provider. If oral meds are utilized, do not return to initial therapy medications. SDS and, PACU only fentaNYL (SUBLIMAZE) injection 50 mcg 50 mcg, IntraVENous, EVERY 5 MIN PRN, 3 doses, Starting on [place] 11/28/21 at 1449, Until Discontinued, Pain Severe (7-10), Phase I or Phase II- Initial therapy for severe pain (7-10). Restricted to a 90 minute time frame starting when the patient can verbally state their pain score. If after 2 doses the pain score does not decrease by more than one point, then call the provider. If oral meds are utilized, do not return to initial therapy medications. SDS and, PACU only 1456 (Given - Provid er: Lorie Sanchez RN)1509 (Given - Provider: Lorie Sanchez RN) hydrALAZINE (APRESOLINE) injection 5 mg(Linked Group 1) 5 mg, IntraVENous, EVERY 10 MIN PRN, 2 doses, Starting on [place] 11/28/21 at 1449, Until Discontinued, High Blood Pressure, PRN for SBP > 160 for 2 consecutive measurements, and if one of the following conditions is met: 1) If IV labetolol is ineffective. 2) If HR is under 60. 3) If patient has heart block, COPD or asthma. If both labetalol and hydralazine ineffective, notify anesthesiologist. for use Sameday and, PACU only insulin lispro (HUMALOG) injection vial 0-12 Units 0-12 Units, SubCUTAneous, PRN, 3 doses, Starting on [place] 11/28/21 at 1301, Until Discontinued, Based on Glucose results, Corrective Low Dose Algorithm Glucose: Dose: If <180 No Insulin 181-240 4 Units 241-300 6 Units 301-350 8 Units 350-340 10 Units Over 400 12 Units, Pre-op (day of surgery) labetalol (NORMODYNE;TRANDATE) injection 5 mg(Linked Group 1) 5 mg, IntraVENous, EVERY 10 MIN PRN, 2 doses, Starting on [place] 11/28/21 at 1449, Until Discontinued, High Blood Pressure, PRN for SBP >160 for 2 consecutive measurements, if HR is 60 or greater. If beta dulce is contraindicated (HR less than 60, heart block, COPD or asthma) use hydralazine IV order. for use Sameday and, PACU only lidocaine PF 1 % injection 1 mL 1 mL, IntraDERmal, ONCE PRN, 1 dose, Starting on [place] 11/28/21 at 1301, Until [place] 11/28/21 at 2359, IV start, Pre-op (day of surgery) meperidine (DEMEROL) injection 12.5 mg 12.5 mg, IntraVENous, EVERY 5 MIN PRN, 4 doses, Starting on [place] 11/28/21 at 1449, Until Discontinued, Shivering, , May give every 5 minutes to max of 50mg. for use Sameday and, PACU only ondansetron (ZOFRAN) injection 4 mg 4 mg, IntraVENous, ONCE PRN, 1 dose, Starting on [place] 11/28/21 at 1449, Until [place] 11/28/21 at 2359, Nausea, Initial antiemetic therapy. For use sameday and, PACU only oxyCODONE (ROXICODONE) immediate release tablet 5 mg (COMPLETED) 5 mg, Oral, PRN, 1 dose, Starting on [place] 11/28/21 at 1449, Until [place] 11/28/21 at 2359, Pain Moderate (4-6), PHASE II, PACU only 1528 (Given - Provid er: Lorie Sanchez RN) sodium chloride flush 0.9 % injection 5-40 mL 5-40 mL, IntraVENous, PRN, Starting on [place] 11/28/21 at 1301, Until Discontinued, Line Care, After every IV line use, For Line Patency: Peripheral IV = 5 mL; Midline or Central Line = 10 mL/lumen. If following IV push medication, administer flush at same rate as the IV push. Flush volume is determined by type of infusion therapy being given. For non-viscous solutions use: Peripheral IV = 5 mL Midline or Central Line = 10 mL/lumen For viscous solutions (i.e. blood components, parenteral nutrition, contrast media, or after obtaining blood sample) use: Peripheral IV = 10 mL Midline or Central Line = 20 mL/lumen, Pre-op (day of surgery) sodium chloride flush 0.9 % injection 5-40 mL 5-40 mL, IntraVENous, PRN, Starting on Marion 11/28/21 at 1449, Until Discontinued, Line Care, After every IV line use, For Line Patency: Peripheral IV = 5 mL; Midline or Central Line = 10 mL/lumen. If following IV push medication, administer flush at same rate as the IV push. Flush volume is determined by type of infusion therapy being given. For non-viscous solutions use: Peripheral IV = 5 mL Midline or Central Line = 10 mL/lumen For viscous solutions (i.e. blood components, parenteral nutrition, contrast media, or after obtaining blood sample) use: Peripheral IV = 10 mL Midline or Central Line = 20 mL/lumen, PACU only Linked Groups Order Group 1: labetalol (NORMODYNE;TRANDATE) injection 5 mgJump to med 5 mg, IntraVENous, EVERY 10 MIN PRN, 2 doses, Starting on Marion 11/28/21 at 1449, Until Discontinued, High Blood Pressure
PRN for SBP >160 for 2 consecutive measurements, if HR is 60 or greater. If beta dulce is contraindicated (HR less than 60, heart block, COPD or asthma) use hydralazine IV order. for use Sameday and
PACU only Or hydrALAZINE (APRESOLINE) injection 5 mgJump to med 5 mg, IntraVENous, EVERY 10 MIN PRN, 2 doses, Starting on Marion 11/28/21 at 1449, Until Discontinued, High Blood Pressure
PRN for SBP > 160 for 2 consecutive measurements, and if one of the following conditions is met: 1) If IV labetolol is ineffective. 2) If HR is under 60. 3) If patient has heart block, COPD or asthma. If both labetalol and hydralazine ineffective, notify anesthesiologist. for use Same and
PACU only (unrecognized sect ion and content) No Status Records FoundNo Status Records FoundNo Status Records FoundNo Status Records FoundNo Status Records FoundNo Status Records FoundNo Status Records Found INFORMATION SOURCE (unrecogn ized section and content) DATE CREATED AUTHOR 11/29/2021 [facility] DATE CREATED AUTHOR AUTHOR'S ORGANIZ ATION 09/15/2023 [facility] DATE CREATED AUTHOR AUTHOR'S ORGANIZ ATION 11/08/2023 [facility] ([place]) DATE CREATED AUTHOR AUTHOR'S ORGANIZ ATION 03/08/2024 [facility] DATE CREATED AUTHOR AUTHOR'S ORGANIZ ATION 05/17/2024 [facility] DATE CREATED AUTHOR AUTHOR'S ORGANIZ ATION 12/03/2024 [facility] DATE CREATED AUTHOR AUTHOR'S ORGANIZ ATION 01/25/2025 [facility] Care Team (unrecognized sect ion and content) Care Team Personnel Name: WASHINGTON REARDON MD Member Role: Primary Care Physician Address: Address: [address] [place] [address] Care Team Related Persons Name: ANAMARIA ZAIDI Care Team Personnel Name: WASHINGTON REARDON MD Member Role: Primary Care Physician Address: Address: [address] [place] [address] Care Team Related Persons Name: ANAMARIA ZAIDI Care Team Personnel Name: WASHINGTON REARDON MD Member Role: Primary Care Physician Address: Address: [address] [place] [address] Care Team Related Persons Name: ANAMARIA ZAIDI Goals (unrecognized section and content) Goals may be documented in a n alternate section Source Comments (unrecognize d section and content) In the event this informatio n is protected by the Federal Confidentiality of Alcohol and Drug Abuse Patient Records regulations: The Federal rules restrict any use of the information to criminally investigate or prosecute any alcohol or drug abuse patient.[facility] FOR RECORDS PERTAINING TO PATIENTS WHO ARE OR HAVE BEEN ENROLLED IN A CHEMICAL DEPENDENCY/SUBSTANCEABUSE PROGRAM, SOME INFORMATION MAY BE OMITTED. This clinical summary was aggregated from multiple sources. Caution should be exercised in using it in the provision of clinical care. This summary normalizes information from multiple sources, and as a consequence, information in this document may materially change the coding, format and clinical context of patient data. In addition, data may be omitted in some cases. CLINICAL DECISIONS SHOULD BE BASED ON THE PRIMARY CLINICAL RECORDS. [employer] provides no warranty or guarantee of the accuracy or completeness of information in this document.
[2025-01-26] MEDS: Lactated Ringers 1,000 ML 15 ML IV (06:29)
--- NOTE | 2025-01-26 06:37 | PCM.HP.STD ---
HPI - General General Date of Admission: 01/26/25 Date of Service: 01/26/25 Chief Complaint: abdominal pain and bloating HPI Narrative NATTY CORTEZ, is a 64 M who presents for the evaluation for abdominal pain and bloating *BGI established 3..25 pt reports that is apr 2022 he saw his pcp who did a physical exam and told pt he felt his liver was enflamed. Shortly after he was diagnosed with DMII. Pt reports he has had scopes and imaging that show enlarged liver and spleen. He reports that he was previously seeing the [facility] [employer] that works with Dr Lloyd and was told he needs to be on a list for a liver transplant. Pt is looking for some clarification and more information on his diagnoses. Pt reports that pantoprazole is helpful for his heartburn. Pt reports that he is seeing mathematics instructor, Dr Reynoso, for his low platelet count. OV 5.28.25 pt reports that he is feeling well overall and denies GI symptoms of concern at this time. Pt reports occasional itchy skin and notes some dizziness related to his medications. Pt denies trouble sleeping, swelling, confusion / brain fog, and diarrhea or constipation. Pt is here to review lab work. Liver Bx 6.19.25- Mild macrovesicular steatosis 10%, Trichome stain highlights bridging fibrosis stage 3, Iron stain negative Liver Doppler 7.8.25-Patent hepatic vasculature with appropriately directed flow, liver steatosis OV 8.8.25- Pt well since last visit. Here to review test results. Denies any GI concerns as well as itching, dizziness, confusion or swelling. Sometimes he feels like burping or heartburn symptoms. Liver biopsy and liver Doppler reviewed OV 8.27.25 pt reports that he is feeling well overall, denies GI symptoms of concern at this time. Reports increased flatulence since starting ursodiol. [facility] Medical History Deviated septum Colonoscopy planned Wears dentures Diabetes Fatty liver Ischemic optic neuropathy Gastric reflux Smoker History of stress test Home Medications ?Medication ?Instructions ?Recorded ?Last Taken ?Type gabapentin 100 mg capsule 100 mg PO BID 08/04/24 01/25/25 History glimepiride 1 mg tablet 1 mg PO QDAY 08/04/24 01/25/25 History metformin 500 mg tablet 500 mg PO BID 08/04/24 01/25/25 History pantoprazole 20 mg tablet,delayed 20 mg PO QDAY 08/04/24 01/25/25 History release pramipexole 0.5 mg tablet 0.5 mg PO QDAY 08/04/24 Unknown History citalopram 10 mg/5 mL oral solution 5 mg PO QDAY 08/17/24 01/26/25 04:30 History ursodiol 500 mg tablet 500 mg PO BID 3 months #180 tabs 11/01/24 Unknown Rx resmetirom 100 mg tablet 100 mg PO QDAY #30 tabs 01/02/25 Unknown Rx (Rezdiffra) Allergy/AdvReac Type Severity Reaction Status Date / Time amoxicillin (From Augmentin) Allergy Hives Verified 01/26/25 06:19 clavulanic acid (From Allergy Hives Verified 01/26/25 06:19 Augmentin) midazolam (From Versed) Allergy Other Verified 01/26/25 06:19 Surgical History H/O thumb surgery History of tonsillectomy H/O knee surgery H/O colectomy H/O neck surgery Previous back surgery Social History Smoking Status: Current every day smoker tobacco type: e-cigarettes alcohol intake: never Vital Signs Vital Signs Vital Signs: 01/26/25 06:20 01/26/25 06:20 Temperature 97.1 F L Temperature Source Temporal Pulse Rate 83 Respiratory Rate 16 Respiratory Pattern Normal Blood Pressure 102/76 Blood Pressure Mean 84 Blood Pressure Source Monitor Blood Pressure Position Sitting Blood Pressure Location Left Arm Pulse Ox 95 Oxygen Delivery Method Room Air Weight Weight: 227 lb Body Mass Index (BMI) 29.9 Physical Exam Const alert, oriented x3, no apparent distress and healthy appearing General Appearance: cooperative GI normal to inspection, nondistended, normoactive bowel sounds, soft to palpation, non-tender and non-distended Percussion: normal to percussion Rectal Exam: deferred Assessment & Plan Assessment/Plan (1) Abdominal pain: (2) Splenomegaly: PLAN: Assessment and Plan Assessment and Plan (1) Splenomegaly: Status: Chronic Plan: Does not seem patient has portal hypertension and hepatic vasculature including portal vein and its branches, splenic vein, hepatic artery and hepatic vein are normal. IVC patent. Liver biopsy rules out cirrhosis therefore unlikely liver or hepatic vasculature, portal vein or splenic vein cause of splenomegaly. Advised to follow-up with mathematics instructor who is already follows with Martin but he could not tell because of thrombocytopenia and splenomegaly and patient feels like dismissive. Advised to have second opinion with mathematics instructor, Dr. 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 Liver chemistry normal including alkaline phosphatase, PT/INR. Platelet has been similar about 93,000 for last couple years. Patient has a splenomegaly as reported in last ultrasound in August 2023 18.3 cm and 1 cm in size in February 2023. Liver reported normal in size with increased echotexture. No intrahepatic bile duct dilatation. Pancreas unremarkable. No ascites. 61.6 cm/s 6.6% suggestive of mild to moderate risk of clinically significant liver fibrosis Extensive lab work shows AMA high 70.4. Immunofixation is Ke[place] shows serum immunofixation shows high IgM 641, M spike 0.5 showing IgM monoclonal protein with kappa light chain specificity. aFP normal. ANCA are negative. Ceruloplasmin normal. Serum ferritin and iron saturation normal Liver biopsy shows steatosis, lobular inflammation and hepatocyte ballooning suggestive of MASLD. Does not mention about bile but bridging fibrosis stage III /IV. Iron) stain negative Liver ultrasound with Doppler and grayscale shows patent hepatic vasculature and no evidence of thrombosis or portal hypertension [place] and lambda light chain ordered. Liver ultrasound with elastography ordered. Alkaline phosphatase normal therefore PBC unlikely. A1c normal Continue ursodiol 500 mg twice daily. Reviewed the liver biopsy slides with [facility] pathologist. Fasting profile ordered. Discussed about Rezdiffra for and will need prior authorization Indication, response rate, benefits, side effects/adverse effects and drug drug interaction of Resmitrom first FDA approved medication for F2 F3 liver fibrosis, MASLD was discussed with the patient with booklet. Questions encouraged and answered. (3) Thrombocytopenia: Status: Chronic Plan: Patient has chronic thrombocytopenia and follows mathematics instructor Dr. Reynoso. (3) Varices, esophageal:
--- NOTE | 2025-01-26 06:42 | PCM.PRE.AN2 ---
ASA Classification* ASA Classification ASA Classification: 2 Assessment & Plan Anesthesia* Anesthesia Assessment Anesthesia Assessment: Discussed sedation and/or anesthesia options, risks, benefits, and alternatives with patient/parents/legal guardian/POA. Questions invited. The patient/parents/legal guardian/POA seems to understand and agrees to proceed with anesthesia plan. Reviewed the physical assessment, medical history, allergy history and patient home medications list prior to surgery/procedure/anesthetic and documented any changes. Performed airway and anesthesia risk assessments. Anesthesia Type Anesthesia Type: MAC History Source History Obtained from:: Patient and Chart Anesthesia Focused Assessment* Temperature: 97.1 F Pulse Rate: 83 Blood Pressure: 102/76 Respiratory Rate: 16 Pulse Ox: 95 Oxygen Delivery Method: Room Air Airway Assessment Mouth opens: >3 cm Mallampati Score: IV Teeth Condition: Partial (Patient has upper partial. It will come out. Left upper bridge is permanent. Patient has several crowns. They are all tight.) Neck Range of motion (ROM): Limited ROM (Slight Decrease) Labs Anesthesia Preop lab: CBC WBC 4.3 K/mm3 (4.4-11.0) L 11/01/24 15:02 11/01/24 RBC 4.60 M/mm3 (4.6-6.2) 11/01/24 15:02 11/01/24 Hgb 14.4 g/dL (13.0-16.5) 11/01/24 15:02 11/01/24 Hct 41.4 % (40-54) 11/01/24 15:02 11/01/24 Plt Count 99 K/mm3 (150-450) L 11/01/24 15:02 11/01/24 CHEMISTRY Potassium 4.4 mmol/L (3.3-5.1) 08/17/24 12:43 08/17/24 Sodium 142 mmol/L (133-145) 08/17/24 12:43 08/17/24 BUN 10 mg/dL (4-19) 08/17/24 12:43 08/17/24 Creatinine 1.01 mg/dL (0.70-1.20) 08/17/24 12:43 08/17/24 Glucose 87 mg/dL (70-99) 08/17/24 12:43 08/17/24 POC Glucose 104 mg/dL (74-106) 11/10/24 08:48 11/10/24 COAG PT 13.2 SECONDS (11.7-14.9) 11/01/24 15:02 11/01/24 Pre-Assessment Diagnosis/Proposed Procedure Planned Operative Procedure(s): EGD Anesthesia History Anesthesia History - fisher lampara net: Anesthesia History - fisher lampara net Hx Hospitalization No 01/25/25 08:23 Any Problems With Anesthesia No 01/25/25 08:23 Cholinesterase deficiency No 01/25/25 08:23 You/Your Family Experience No 01/25/25 08:23 fever (hyperthermia) with Relationship Recent Exposure to Contagious No 01/26/25 06:20 Disease Does patient have nerve No 01/25/25 08:23 stimulator Patient instructed to have device shut off --Does patient have Pacemaker No 01/26/25 06:20 or ICD? When Was Last Pacemaker Check QUESTION #4 FULL TEXT: You/Your Family Experience fever (hyperthermia) with Anesthesia Last Oral Intake Last Oral intake: Last Oral Intake NPO since 04:30 01/26/25 06:20 Meds taken in AM with sips of water? Meds patient instructed to take am of surgery Any additional information?: Yes NPO since: 04:30 (Water at 4:30 AM.) Meds taken in AM with sips of water?: Yes PONV PONV - fisher lampara net: PONV - fisher lampara net Female No 01/25/25 08:23 HX of Motion Sickness No 01/25/25 08:23 HX of N/V After Surgery No 01/25/25 08:23 Non-Smoker No 01/25/25 08:23 Duration of Surgery greater No 01/25/25 08:23 than 60 minutes Number of Risk Factors PONV Score Height & Weight Height & Weight: Anesthesia: Height & Weight Height 6 ft 1 in 01/26/25 06:20 Weight: 102.965 kg 01/26/25 06:20 Body Mass Index (BMI) 29.9 01/26/25 06:20 Respiratory Assessment Respiratory Assessment - fisher lampara net: Respiratory Tract Infection Hx - fisher lampara net Hx Respiratory Tract Infection No 01/25/25 08:23 STOP Sleep Apnea STOP Sleep Apnea - fisher lampara net: STOP Sleep Apnea - fisher lampara net Hx Hypertension No 01/25/25 08:23 Hx Sleep Apnea Yes: HAD SURGERY YRS AGO 01/25/25 08:23 CPAP No 01/25/25 08:23 BIPAP No 01/25/25 08:23 Do you snore loudly (louder than talking or can be heard Do you often feel tired/ fatigued/ sleepy during daytime? Has anyone observed you stop breathing during sleep? STOP Results Positive 01/25/25 08:23 QUESTION #5 FULL TEXT : Do you snore loudly (louder than talking or can be heard through closed doors)? 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 Specify any problems Hx of Preganancy in last 3 N/A 01/25/25 08:23 Months Nurse Filling Out Transfusion [id number] 01/25/25 08:23 & Questions: Date: 01/25/25 01/25/25 08:23 Time: 08:26 01/25/25 08:23 Patient unable to answer at this time (ie. confused, unrespo /Reproduction History /Reproductive History - fisher lampara net: /Reproductive Hx- fisher lampara net Hx Now Gestational Age (in weeks): EDC: Hx Hx Para Hx Section SAB Active Medications Active Medications: Current Medications Generic Name Dose Route Start Last Admin Trade Name Freq PRN Reason Stop Dose Admin Lactated Ringer's 1,000 mls @ 15 mls/hr 01/26/25 06:15 01/26/25 06:29 IV 15 mls/hr .Q48H BRIANDA Administration PFSH Medical History Deviated septum Colonoscopy planned Wears dentures Diabetes Fatty liver Ischemic optic neuropathy Gastric reflux Smoker History of stress test Home Medications ?Medication ?Instructions ?Recorded ?Last Taken ?Type gabapentin 100 mg capsule 100 mg PO BID 08/04/24 01/25/25 History glimepiride 1 mg tablet 1 mg PO QDAY 08/04/24 01/25/25 History metformin 500 mg tablet 500 mg PO BID 08/04/24 01/25/25 History pantoprazole 20 mg tablet,delayed 20 mg PO QDAY 08/04/24 01/25/25 History release pramipexole 0.5 mg tablet 0.5 mg PO QDAY 08/04/24 Unknown History citalopram 10 mg/5 mL oral solution 5 mg PO QDAY 08/17/24 01/26/25 04:30 History ursodiol 500 mg tablet 500 mg PO BID 3 months #180 tabs 11/01/24 Unknown Rx resmetirom 100 mg tablet 100 mg PO QDAY #30 tabs 01/02/25 Unknown Rx (Rezdiffra) Allergy/AdvReac Type Severity Reaction Status Date / Time amoxicillin (From Augmentin) Allergy Hives Verified 01/26/25 06:19 clavulanic acid (From Allergy Hives Verified 01/26/25 06:19 Augmentin) midazolam (From Versed) Allergy Other Verified 01/26/25 06:19 Surgical History H/O thumb surgery History of tonsillectomy H/O knee surgery H/O colectomy H/O neck surgery Previous back surgery Social History Smoking Status: Current every day smoker tobacco type: e-cigarettes alcohol intake: never Review of Systems (Anesthesia) ROS Narrative System reviewed and no additional complaints, except as documented.
--- NOTE | 2025-01-26 07:00 | EGD_PTH ---
PATIENT: NATTY CORTEZ LOC: EN U#:[id number] AGE/SX: 64/M ROOM: RE01/26/[address]: Dr. Werner Pérez DO : 1960 BED: DIS: 01/26/2025 SPEC #: [id number] RECD: 01/26/25 10:29 STATUS: TIMO LORA #: [id number] HARJINDER: 01/26/25 07:[address]: Werner Pérez DEPT: SURGICAL PATHOLOGY RECD BY: Sen Garcia ENTERED: 01/26/25 14:56 SP TYPE: EGD BIOPSY ANUJA DR: MD Misty Alonzo, ARC WELDING MACHINE OPERATOR-C Tissues: A - Esophagus, NOS B - Duodenum, NOS C - Gastric mucous membrane Procedures: Surgery Specimen Level IV HEADER OPERATION: EGD with biopsy PRE-OP DIAGNOSIS: Abdominal pain, splenomegaly TISSUE SUBMITTED: A- Distal esophagus biopsy, B- Duodenum biopsy, C- Gastric cardia biopsy MICROSCOPIC DIAGNOSIS A. Distal esophagus, biopsy: - Squamous and columnar mucosa with reactive changes. - Negative for goblet cell metaplasia. B. Duodenum, biopsy: - Normal villous morphology. - Negative for increased intraepithelial lymphocytes. C. Gastric cardia, biopsy: - Oxyntic mucosa with mild chronic inflammation. - Negative for Helicobacter-like organisms (H&E). MICROSCOPIC DESCRIPTION Slides are reviewed. GROSS DESCRIPTION A. Received in fixative is one container labeled with the patient's name and designated Distal esophagus biopsy. The specimen consists of two irregular fragments of light bee soft tissue, each measuring 0.5 cm. The specimen is totally submitted in one cassette. B. Received in fixative is one container labeled with the patient's name and designated Duodenum biopsy. The specimen consists of two irregular fragments of light bee soft tissue that measure 0.2 to 0.4 cm. The specimen is totally submitted in one cassette. C. Received in fixative is one container labeled with the patient's name and designated Gastric cardia biopsy. The specimen consists of three irregular fragments of light bee soft tissue that measure 0.2 to 0.4 cm. The specimen is totally submitted in one cassette. [place] 01/26/2025 CPT:52042b8
--- NOTE | 2025-01-26 07:40 | OP.EGD_ITS ---
Patient Name: Baldemar Zaidi Procedure Date: 01/26/2025 7:21 AM Date of : 1960 Age: 64 Procedure: Upper GI endoscopy Indications: Epigastric abdominal pain, Abdominal pain in the left upper quadrant, Portal hypertension rule out esophageal varices Providers: Werner Pérez DO Referring MD: Yudi Rodgers Medicines: Monitored Anesthesia Care Patient Profile: This is a 64 year old male. Refer to note in patient chart for documentation of history and physical. Patient has symptoms of acute abdominal cramping, chronic abdominal distention, chronic left upper quadrant abdominal pain, chronic epigastric abdominal pain, acute dyspepsia and chronic nausea. Complications: No immediate complications. Procedure: Pre-Anesthesia Assessment: - Prior to the procedure, a History and Physical was performed, and patient medications and allergies were reviewed. The patient is competent. The risks and benefits of the procedure and the sedation options and risks were discussed with the patient. All questions were answered and informed consent was obtained. Patient identification and proposed procedure were verified by the physician in the pre-procedure area. Mental Status Examination: alert and oriented. Airway Examination: normal oropharyngeal airway and neck mobility. Respiratory Examination: clear to auscultation. CV Examination: normal. Prophylactic Antibiotics: The patient does not require prophylactic antibiotics. Prior Anticoagulants: The patient has taken no anticoagulant or antiplatelet agents except for NSAID medication. ASA Grade Assessment: II - A patient with mild systemic disease. After reviewing the risks and benefits, the patient was deemed in satisfactory condition to undergo the procedure. The anesthesia plan was to use monitored anesthesia care (MAC). Immediately prior to administration of medications, the patient was re-assessed for adequacy to receive sedatives. The heart rate, respiratory rate, oxygen saturations, blood pressure, adequacy of pulmonary ventilation, and response to care were monitored throughout the procedure. The physical status of the patient was re-assessed after the procedure. After obtaining informed consent, the endoscope was passed under direct vision. Throughout the procedure, the patient's blood pressure, pulse, and oxygen saturations were monitored continuously. The Endoscope was introduced through the mouth, and advanced to the third part of the duodenum. Small bowel enteroscopy was deemed necessary. The upper GI endoscopy was accomplished without difficulty. The patient tolerated the procedure well. Scope In: 7:31:33 AM Scope Out: 7:35:17 AM Total Procedure Duration Time 0 hours 3 minutes 44 seconds Findings: The Z-line was irregular and was found 40 cm from the incisors. Biopsies were taken with a cold forceps for histology. Verification of patient identification for the specimen was done. Estimated blood loss was minimal. Diffuse prominent gastric folds were found in the entire examined stomach. Biopsies were taken with a cold forceps for histology. Verification of patient identification for the specimen was done. Estimated blood loss was minimal. Biopsies were taken with a cold forceps for Helicobacter pylori testing. Verification of patient identification for the specimen was done. Estimated blood loss was minimal. Patchy mildly erythematous mucosa without active bleeding and with no stigmata of bleeding was found in the duodenal bulb and in the first portion of the duodenum. Biopsies were taken with a cold forceps for histology. Verification of patient identification for the specimen was done. Estimated blood loss was minimal. Moderate portal hypertensive gastropathy was found in the entire examined stomach. Impression: - Z-line irregular, 40 cm from the incisors. Biopsied. - Enlarged gastric folds. Biopsied. - Erythematous duodenopathy. Biopsied. Recommendation: - Discharge patient to home. - Resume previous diet. - Continue present medications. - Await pathology results. Procedure Code(s): --- Professional --- 51669, Small intestinal endoscopy, enteroscopy beyond second portion of duodenum, not including ileum; with biopsy, single or multiple CPT copyright 2021 [employer]. All rights reserved. The codes documented in this report are preliminary and upon wearing apparel shaker review may be revised to meet current compliance requirements. Werner Pérez DO 01/26/2025 7:39:54 AM This report has been signed electronically. Number of Addenda: 0 Note Initiated On: 01/26/2025 7:21 AM
--- NOTE | 2025-01-26 07:40 | OP.PROVAT_ITS ---
01/26/2025 Yudi Rodgers Re : Upper GI endoscopy procedure for Baldemar Zaidi Dear Fidencio This procedure was performed on January. My impressions and recommendations are as follows: Impressions : - Z-line irregular, 40 cm from the incisors. Biopsied. - Enlarged gastric folds. Biopsied. - Erythematous duodenopathy. Biopsied. Recommendations : - Discharge patient to home. - Resume previous diet. - Continue present medications. - Await pathology results. My findings are described in the full procedure note, which is enclosed. If I can be of further assistance, please feel free to contact me at . Sincerely, Werner Pérez, 01/26/2025 7:39:54 AM This report has been signed electronically.
--- NOTE | 2025-01-26 07:46 | PCM.POST.ANE ---
Anesthesia: Postop Eval I Current Vital Signs Temperature: 97.9 F Pulse Rate: 74 Blood Pressure: 110/76 Respiratory Rate: 16 Pulse Ox: 95 Oxygen Delivery Method: Room Air Assessment Airway patent: Yes Spontaneous unlabored respirations: Yes Mental status: Awake nausea: No Vomiting: No Anesthesia Complication: No Fluid Hydration Crystalloid volume administer (ml): 500 Total IV fluid infused: 500 Progress Note Anesthesia document: Postop Eval 1 completed: Yes
[2025-01-26 09:27] LABS: Platelet Count 82 K/mm3 (150-450)
[2025-01-26 09:27] LABS: Hematocrit 39.2 % (40-54); Hemoglobin 13.7 g/dL (13.0-16.5); Immature Granulocytes Count 0.020 X10^3/uL (0.0-0.0); Mean Corp Hgb Conc 34.9 g/dL (32-36); Mean Corpuscular Volume 89.5 fL (80-94); Mean Platelet Vol. 11.8 fl (6.2-12.0); NRBC Flagged by Analyzer 0 % (0-5); POSITIVE COUNT YES; Platelet Count 84 K/mm3 (150-450); RBC Distribution Width CV 12.8 % (11.6-14.6); RBC Distribution Width SD 42.0 fl (35.1-43.9); Red Blood Count 4.38 M/mm3 (4.6-6.2); White Blood Count 3.5 K/mm3 (4.4-11.0)
[2025-01-26 09:29] LABS: Prothrombin Time (Protime)PT. 13.7 SECONDS (11.7-14.9)
[2025-01-26 09:30] LABS: Partial Thromboplast Time 27.5 Seconds (24.1-36.2)
[2025-01-26 10:50] LABS: AST(SGOT) 27 U/L (<=37); Alanine Aminotransfer ALT/SGPT 24 U/L (<=46); Albumin, Serum 4.1 g/dL (3.4-4.8); Alkaline Phosphatase 53 U/L (40-129); Anion Gap 10 (5-15); BUN 13 mg/dL (4-19); BUN/Creat Ratio 13.7 RATIO (10-20); Calcium,Total 9.1 mg/dL (7.6-11.0); Carbon Dioxide 24.9 mmol/L (21.0-32.0); Chloride 107 mmol/L (98-108); Cholesterol 147 mg/dL (<=200); Estimated Creatinine Clearance 96.99 ml/min (50-250); Globulin 2.9 g/dL (2.2-4.2); Glucose 106 mg/dL (70-99); Low Density Lipoprotein Calc. 84 mg/dL; Potassium 4.6 mmol/L (3.3-5.1); Triglycerides 128 mg/dL; Very Low Density Lipoprotein 26 mg/dL (5-40); cholesterol:hdl ratio screen 3.91
[2025-01-26 10:53] LABS: PSA,Total - Annual Screen 0.41 ng/mL (0.02-4.00)
--- NOTE | 2025-01-26 15:16 | PCM.POSTANE2 ---
Anesthesia Postop Eval I Sum Postop Eval Completion status Anesthesia document: Postop Eval 1 completed: Yes Anesthesia Postop Eval I Summary Anesthesia Postop Eval I Summary: Anesthesia Postop Eval I: Assessment Summary Airway patent Yes 01/26/25 07:46 [email or web address] Spontaneous unlabored Yes 01/26/25 07:46 [email or web address] respirations Mental status Awake 01/26/25 07:46 [email or web address] nausea No 01/26/25 07:46 [email or web address] Vomiting No 01/26/25 07:46 [email or web address] Anesthesia Postop Eval I: Fluid Summary Crystalloid volume administer 500 01/26/25 07:46 [email or web address] (ml) Colloids volume administered ( ml) Blood Product volume administered (ml) Total IV fluid infused 500 01/26/25 07:46 [email or web address] Anesthesia Postop Eval I: Summary Notes Anesthesia Complication No 01/26/25 07:46 [email or web address] Anesthesia Complication Comment: Post-operative progress note Anesthesia: Postop Eval II Evaluation Mental status: Awake and Calm Pain Level: 0 nausea: No Vomiting: No Complications Anesthesia Complication: No
[2025-01-27 15:08] LABS: ANTINUCLEAR ANTIBODIES DIRECT Negative (Negative)
== END 2025-01-26 08:10 | disposition home or self-care (01) ==
LOC: EN 05:53 → AC 05:58
PROVIDERS: Internal Medicine; PCP Registered Nurse; Referring Provider Registered Nurse; Visit Provider Internal Medicine Gastroenterology
PROC: 0DJ08ZZ Inspection of Upper Intestinal Tract, Via Natural or Artificial Opening Endoscopic (ICD-10-PCS; CPT 43235; principal; 2025-01-26 06:55)
DX: K76.6 Portal hypertension (principal); K74.60 Unspecified cirrhosis of liver; E11.9 Type 2 diabetes mellitus without complications; K75.81 Nonalcoholic steatohepatitis (NASH); K31.89 Other diseases of stomach and duodenum; R16.2 Hepatomegaly with splenomegaly, not elsewhere classified; K21.9 Gastro-esophageal reflux disease without esophagitis; K29.50 Unspecified chronic gastritis without bleeding; D69.6 Thrombocytopenia, unspecified; F17.200 Nicotine dependence, unspecified, uncomplicated; Z12.5 Encounter for screening for malignant neoplasm of prostate; Z79.84 Long term (current) use of oral hypoglycemic drugs; Z79.899 Other long term (current) drug therapy
CPT/HCPCS: 43239; 36415; 80053; 80061; 82962; 83883; 84153; 84443; 85025; 85049; 85610; 85730; 86038; 86225; 88305; G0103; J2405

== ENCOUNTER → 2025-03-09 | Outpatient (CLI) | payer MEDICARE, SELFPAY ==
--- NOTE | 2025-03-09 12:55 | RAD_ITS ---
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 FINDINGS: Skull: No lytic or blastic bone lesion. C-T-L Spine: No evidence of compression fracture. No lytic or blastic bone lesion. Multilevel degenerate changes. Ribs: Unremarkable. AP Pelvis: Unremarkable. AP Humeri: No lytic or blastic bone lesion. AP Femurs: No lytic or blastic bone lesion. RAD/Bone Survey Comp(Axial&Append) IMPRESSION: NEGATIVE BONE SURVEY. Reading Location: [id number]
== END | disposition home or self-care (01) ==
PROVIDERS: PCP Registered Nurse; Referring Provider Internal Medicine Hematology & Oncology; Visit Provider Internal Medicine Hematology & Oncology
DX: D47.2 Monoclonal gammopathy (principal); D69.6 Thrombocytopenia, unspecified
CPT/HCPCS: 77075